=== PATIENT | male | born 1940 | race Caucasian/White ===

== ENCOUNTER → 2019-11-09 11:35 | Outpatient (BNVA) | payer MEDICARE, OTHER, SELFPAY | PROVIDERS: Family Provider Family Medicine; PCP Family Medicine; Visit Provider Nurse Practitioner Family | DX: R30.0 Dysuria (principal); K57.92 Diverticulitis of intestine, part unspecified, without perforation or abscess without bleeding | CPT/HCPCS: 80053; 81000; 85025 ==

== ENCOUNTER → 2020-01-14 09:37 | Outpatient (BNVA) | payer MEDICARE, OTHER, SELFPAY | PROVIDERS: PCP Family Medicine; Visit Provider Orthopaedic Surgery | DX: Z01.812 Encounter for preprocedural laboratory examination (principal); Z20.828 Contact with and (suspected) exposure to other viral communicable diseases | CPT/HCPCS: 87635 ==

== ENCOUNTER 2020-01-20 05:48 | Day surgery (SDC) | payer MEDICARE, OTHER, SELFPAY ==
[2020-01-19 17:37] VITALS: BMI 31.3
[2020-01-20 05:57] VITALS: BP 156/63; PULSE 61; RESP 18; TEMP 37; O2SAT 96
[2020-01-20] MEDS: sodium chloride 0.9% 1,000 ML 30 ML IV (06:23)
--- NOTE | 2020-01-20 06:45 | ANES.PREANE2 ---
Pre-Anesthetic Assessment Pre-Anesthetic Assessment: Height/Weight: Height 1.7 m Weight 90.718 kg Temp Pulse Resp BP Pulse Ox 98.6 F 61 18 156/63 96 01/20/20 05:57 01/20/20 05:57 01/20/20 05:57 01/20/20 05:57 01/20/20 05:57 Preop Diagnosis: Left carpal tunnel syndrome, left ring finger trigger finger, mass left forearm Proposed Procedure: Operation Date: 01/20/20 07:00 Proposed Procedures p left carpal tunnel release, left ring finger trigger digit release, left wrist mass removal/ 63521, 60805, 78696 left carpal tunnel release, left ring trigger finger, mass upper extremity/ G56.02, R22.32, M65.342(Left) - Dk Meza MD s Trigger Finger Release(Left) - Dk Meza MD s Excision Mass/Lesion wrist(Left) - Dk Meza MD Familial anesthetic complications: None Was Beta Dante taken within 24 hours: Yes Last intake: Intake NPO > 8 hrs Last Liquid Date 01/19/20 Last Solid Date 01/19/20 Social: Social History: No alcohol and No tobacco Exam: Pre-Anes Outpt Exam: alert, oriented x 3, clear to auscultation bilaterally and regular rate & rhythm Airway: Cervical ROM: WNL MP: 3 Dentition: Full CV/HEM: CV/HEM: HTN Metabolic: Metabolic: Hyperlipidemia Anesthetic Plan: ASA status: 2 Anesthesia: MAC and Regional (specify below) Other: [place] block Risk of > 500 ml blood loss (7ml/kg in children): No Meds/Allergies Current Medications: Current Medications Generic Name Dose Route Start Last Admin Trade Name Freq PRN Reason Stop Dose Admin Sodium Chloride 1,000 mls @ 30 ml s/hr 01/20/20 06:00 01/20/20 06:23 Sodium Chloride 0.9% IV 01/21/20 05:59 30 mls/hr .Q24H GAY Administration PFSH Anesthesia PFSH: Medical History GERD (gastroesophageal reflux disease) Hx of diverticulitis of colon Hypercholesteremia Hypertension Social History Smoking and tobacco status: never smoked Alcohol intake: never Adopted: No Household members: spouse Housing: House Marital status: Number of children: 3 Highest education level completed: High School Graduate Current occupational status: retired Pets and animals: Yes Current gender identity: Male Data Anesthesia Cardiac Studies: No Data to Display
--- NOTE | 2020-01-20 06:46 | W.PM.OPSUD ---
Surgery/Procedure H&P Update DATE OF PROCEDURE: January 20, 2020 DATE H&P PERFORMED: 12/21/19 PREOP DIAGNOSIS: Left carpal tunnel syndrome, left ring finger trigger finger, mass left forearm PLANNED PROCEDURE: Operation Date: 01/20/20 07:00 Proposed Procedures p left carpal tunnel release, left ring finger trigger digit release, left wrist mass removal/ 02060, 76909, 71030 left carpal tunnel release, left ring trigger finger, mass upper extremity/ G56.02, R22.32, M65.342(Left) - Dk Meza MD s Trigger Finger Release(Left) - Dk Meza MD s Excision Mass/Lesion wrist(Left) - Dk Meza MD
--- NOTE | 2020-01-20 07:52 | PM.OP ---
Operative Report Date of procedure: January 20, 2020 Pre-op Diagnosis: Left carpal tunnel syndrome, left ring finger trigger finger, mass left forearm Post-op diagnosis: same Post-op Diagnosis: Lipoma left forearm Post-op Findings: As above Procedure Done: Left carpal tunnel release, left ring finger trigger finger release, excision lipoma left forearm Specimens removed/disposition: Lipoma left forearm Pathology: none sent Surgeon: Dk Meza Anesthesia: Nerve Block (Jordan block) Estimated blood loss (mL): 10 Tourniquet time (min): 26 Complications: None Findings: No mass occupying lesions or abnormalities were seen within the carpal tunnel. No abnormalities were seen at the with the flexor tendons at the A1 rosita level of the ring finger. The patient had approximately 2 cm diameter lipoma over the volar wrist overlying the fascia in the left forearm Condition: stable Disposition: PACU Procedure: Patient was taken to the operating room and a block anesthesia provided by the anesthesia service. She was prepped and draped with the arm exposed. A timeout was performed. A 3 cm long incision was made in line with the fourth ray from the distal edge of the carpal tunnel extending proximally. The subcutaneous fat and palmar fascia was divided with a scalpel blade. Under loupe magnification the ulnar neurovascular bundle was identified distally. A hemostat could be passed under the transverse carpal ligament allowing the distal 25% to be divided. A slotted guide was then passed beneath the transverse carpal ligament and the middle 50% divided. Blunt scissors were then passed over the guide freeing the proximal ligament. The tourniquet was deflated. Hemostasis provided with electrocautery. Wound edges were infiltrated with 10 cc of a half percent Marcaine solution. A transverse incision was made over the level of a 1 rosita in the palm over a distance of approximately a centimeter and a half. Under loupe magnification blunt dissection was accomplished down to the A1 rosita. With adequate visualization a scalpel was used to divide the central 8 mm of that structure. Blunt scissors were then used to extend the release approximately 5 mm proximally and 5 mm distally. Tendons were pulled the road and inspected to assure there health. Skin edges were infiltrated with 4 cc of 0.5%n Marcaine. A transverse incision was then made over the mass of the volar forearm approximately 2 cm in length. Dissection carried down bluntly with a hemostat mobilizing superficial vessels radially and ulnarly. That lipoma then delivered itself through the incision. Utilizing a hemostat and intermittently blunt scissors the lipoma was excised and mass. As there is no atypical qualities and the lipoma was small in size it was not sent for pathology. Wound edges were infiltrated with 6 cc of 0.5% Marcaine. Tourniquet was deflated All skin edges were closed with interrupted 3-0 Prolene. Xeroflo gauze 4 x 4's, web roll and a 2 inch Monster wrap were applied from forearm to hand. The patient was taken to recovery room in stable condition The skin edges were closed with 3-0 Prolene compressive dressings were applied. Skin edges were reapproximated with 3-0 Prolene. Sterile dressings were applied. The patient was taken to the recovery room in stable condition
[2020-01-20 07:55] VITALS: BP 130/68; PULSE 54; RESP 16; TEMP 36.4; O2SAT 96
[2020-01-20 08:35] VITALS: BP 147/64; PULSE 51; RESP 17; O2SAT 98
--- NOTE | 2020-01-20 14:19 | ANE.PACU2 ---
Inpatient post-anesthesia follow up: Airway intact: Yes Vital signs: Temperature 97.6 F Pulse Rate 51 Respiratory Rate 17 Blood Pressure 147/64 Pulse Oximetry 98 Oxygen Delivery Me thod Room Air Oxygen Flow Rate Fraction of Inspir ed Oxygen Hydration adequate: Yes Nausea and vomiting: No Pain level: 2 Mental status: Baseline
== END 2020-01-20 08:46 | disposition home or self-care (01) ==
PROVIDERS: PCP Family Medicine; Visit Provider Orthopaedic Surgery
PROC: (CPT 64721; principal; 2020-01-20 07:00)
PROC: (CPT 26055; 2020-01-20 07:00)
PROC: (CPT 11402; 2020-01-20 07:00)
DX: G56.02 Carpal tunnel syndrome, left upper limb (principal); M65.342 Trigger finger, left ring finger; D17.22 Benign lipomatous neoplasm of skin and subcutaneous tissue of left arm; I10 Essential (primary) hypertension; E78.5 Hyperlipidemia, unspecified; K21.9 Gastro-esophageal reflux disease without esophagitis; E78.00 Pure hypercholesterolemia, unspecified
CPT/HCPCS: 11402; 12031; 26055; 64721; 12345; 96372; J0690; J2704; J3490; J7030

== ENCOUNTER → 2020-03-03 09:38 | Outpatient (BNVA) | payer MEDICARE, OTHER, SELFPAY | PROVIDERS: PCP Family Medicine; Visit Provider Orthopaedic Surgery | DX: Z11.59 Encounter for screening for other viral diseases (principal) | CPT/HCPCS: 87635 ==

== ENCOUNTER 2020-03-09 05:43 | Day surgery (SDC) | payer MEDICARE, OTHER, SELFPAY ==
[2020-03-08 17:46] VITALS: BMI 31.3
[2020-03-09 06:01] VITALS: BP 148/67; PULSE 59; RESP 18; TEMP 36.4; O2SAT 96
[2020-03-09] MEDS: lidocaine 1% INJ 20 mL INTRADERMA (06:34)
[2020-03-09] MEDS: sodium chloride 0.9% 1,000 ML 30 ML IV (06:34)
--- NOTE | 2020-03-09 06:36 | ANES.PREANE2 ---
Pre-Anesthetic Assessment Pre-Anesthetic Assessment: Height/Weight: Height 1.7 m Weight 90.718 kg Temp Pulse Resp BP Pulse Ox 97.5 F L 59 L 18 148/67 96 03/09/20 06:01 03/09/20 06:01 03/09/20 06:01 03/09/20 06:01 03/09/20 06:01 Preop Diagnosis: Carpal tunnel syndrome right Proposed Procedure: Operation Date: 03/09/20 07:00 Proposed Procedures p right Carpal Tunnel Release 54497 g56.01(Right) - Dk Meza MD Familial anesthetic complications: None Was Beta Dante taken within 24 hours: Yes Last intake: Intake NPO > 8hrs Last Liquid Date 03/08/20 Last Liquid Time 21:00 Last Solid Date 03/08/20 Last Solid Time 18:00 Social: Social History: No alcohol and No tobacco Exam: Pre-Anes Outpt Exam: alert, oriented x 3, clear to auscultation bilaterally and regular rate & rhythm Airway: Cervical ROM: WNL MP: 3 Dentition: Full CV/HEM: CV/HEM: HTN GI: GI: GERD Metabolic: Metabolic: Hyperlipidemia Musc/skel: Musc/skel: OA/DJD Anesthetic Plan: ASA status: 2 Anesthesia: MAC and Regional (specify below) ([place] block) Risk of > 500 ml blood loss (7ml/kg in children): No Meds/Allergies Current Medications: Current Medications Generic Name Dose Route Start Last Admin Trade Name Freq PRN Reason Stop Dose Admin Sodium Chloride 1,000 mls @ 30 ml s/hr 03/09/20 06:00 03/09/20 06:34 Sodium Chloride 0.9% IV 03/10/20 05:59 30 mls/hr .Q24H GAY Administration Lidocaine HCl 0.1 ml 03/09/20 05:55 03/09/20 06:34 Lidocaine 1% Inj 20 Ml INTRADERMA 03/10/20 05:54 0.02 ml PRN PRN Administration anesthetic prior to IV start PFSH Anesthesia PFSH: Medical History GERD (gastroesophageal reflux disease) Hx of diverticulitis of colon Hypercholesteremia Hypertension Social History Smoking and tobacco status: never smoked Alcohol intake: never Adopted: No Household members: spouse Housing: House Marital status: Number of children: 3 Highest education level completed: High School Graduate Current occupational status: retired Pets and animals: Yes Current gender identity: Male Data Anesthesia Cardiac Studies: No Data to Display
--- NOTE | 2020-03-09 06:37 | W.PM.OPSUD ---
Surgery/Procedure H&P Update DATE OF PROCEDURE: March 09, 2020 DATE H&P PERFORMED: 03/01/20 PREOP DIAGNOSIS: Carpal tunnel syndrome right PLANNED PROCEDURE: Operation Date: 03/09/20 07:00 Proposed Procedures p right Carpal Tunnel Release 42291 g56.01(Right) - Dk Meza MD
[2020-03-09 07:41] VITALS: BP 126/61; PULSE 57; RESP 16; TEMP 36.3; O2SAT 95
--- NOTE | 2020-03-09 07:59 | P.OP_ITS ---
Operative Report Date of procedure: March 09, 2020 Pre-op Diagnosis: Carpal tunnel syndrome right Post-op diagnosis: same Procedure Done: Right carpal tunnel release Pathology: none sent Surgeon: Dk Meza Anesthesia: Nerve Block (Jordan block) Estimated blood loss (mL): 2 Tourniquet time (min): 20 Findings: No masses or space-occupying lesions were seen within the carpal tunnel Procedure: Patient was taken to the operating room and anesthesia provided by the anesthesia service. She was prepped and draped with the arm exposed. A timeout was performed. A 3 cm long incision was made in line with the fourth ray from the distal edge of the carpal tunnel extending proximally. The subcutaneous fat and palmar fascia was divided with a scalpel blade. Under loupe magnification the ulnar neurovascular bundle was identified distally. A hemostat could be passed under the transverse carpal ligament allowing the distal 25% to be divided. A slotted guide was then passed beneath the transverse carpal ligament and the middle 50% divided. Blunt scissors were then passed over the guide freeing the proximal ligament. The tourniquet was deflated. Hemostasis provided with electrocautery. Wound edges were infiltra florencio with 10 cc of a half percent Marcaine solution. Skin edges were reapproximated with 3-0 Prolene. Sterile dressings were applied. The patient was taken to the recovery room in stable condition
--- NOTE | 2020-03-09 14:43 | ANE.PACU2 ---
Inpatient post-anesthesia follow up: Airway intact: Yes Vital signs: Temperature 97.3 F Pulse Rate 57 Respiratory Rate 16 Blood Pressure 126/61 Pulse Oximetry 95 Oxygen Delivery Me thod Room Air Oxygen Flow Rate Fraction of Inspir ed Oxygen Hydration adequate: Yes Nausea and vomiting: No Pain level: 1 Mental status: Baseline
== END 2020-03-09 08:25 | disposition home or self-care (01) ==
PROVIDERS: PCP Family Medicine; Visit Provider Orthopaedic Surgery
PROC: (CPT 64721; principal; 2020-03-09 07:00)
DX: G56.01 Carpal tunnel syndrome, right upper limb (principal); I10 Essential (primary) hypertension; K21.9 Gastro-esophageal reflux disease without esophagitis; E78.5 Hyperlipidemia, unspecified; M19.90 Unspecified osteoarthritis, unspecified site; Z79.82 Long term (current) use of aspirin
CPT/HCPCS: 64721; 12345; J0690; J2704; J3010; J3490; J7030

== ENCOUNTER → 2020-04-18 09:08 | Outpatient (BNVA) | payer MEDICARE, OTHER, SELFPAY | PROVIDERS: PCP Family Medicine; Visit Provider Urology | DX: R31.0 Gross hematuria (principal); N40.1 Benign prostatic hyperplasia with lower urinary tract symptoms | CPT/HCPCS: 81003 ==

== ENCOUNTER 2020-05-04 07:57 | Outpatient (CLI) | payer MEDICARE, OTHER, SELFPAY ==
--- NOTE | 2020-05-04 08:00 | CT_ITS ---
WS: [id number] CT ABDOMEN PELVIS TECHNIQUE: Noncontrast CT of the abdomen and contrast-enhanced CT of the abdomen and pelvis with ismael nal and sagittal reformatted images. CLINICAL INFORMATION: GROSS HEMATURIA COMPARISON: CT 11 DLP: 3128.[address] scans at [facility] use at least one of these dose optimization techniques: automat ed exposure control; mA and/or kV adjustment per patient size (includes targeted exams where dose is matched to clinical indication); or iterative reconstruction. FINDINGS: Mild bilateral renal cortical atrophy. No obstructing renal or ureteral calculi. Normal bilateral roseline al parenchymal enhancement. No hydronephrosis. Normal ureteral excretion on the delayed images. Yamini l bladder. Mild prostate enlargement measuring 3.3 CM. Normal hepatic parenchyma. Normal portal vein and splenic vein. Mild pancreatic atrophy. Small esopha geal hiatal hernia. Normal spleen. Lung bases are well aerated. Normal caliber abdominal aorta. Mild aortic calcification. Mild diffuse thickening of the sigmoid colon with diverticulosis. No significant inflammatory strandi ng. No evidence of acute diverticulitis. No evidence of high-grade small or large bowel obstruction. No free fluid in the pelvis. Disc space narrowing worse L5-S1. CT/CT abdomen pelvis wo/w 11164 IMPRESSION: 1. No obstructing renal or ureteral calculi. 2. Mild bilateral renal cortical atrophy. Normal parenchymal enhancement. 3. Normal excretion on the delayed images. Normal filling of the bladder. 4. Mild prominence of the prostate measuring 3.3 CM. 5. Sigmoid diverticulosis. No evidence of acute diverticulitis.
[2020-05-04 09:35] LABS: Blood Urea Nitrogen 17 mg/dL (8-23)
[2020-05-04] MEDS: iohexol 300 mg/mL 100 mL Btl IV (09:44)
== END 2020-05-04 07:58 | disposition home or self-care (01) ==
LOC: CT 08:01 → RAD 08:01
PROVIDERS: PCP Family Medicine; Visit Provider Urology
DX: R31.0 Gross hematuria (principal); K57.30 Diverticulosis of large intestine without perforation or abscess without bleeding; N40.0 Benign prostatic hyperplasia without lower urinary tract symptoms; N26.1 Atrophy of kidney (terminal)
CPT/HCPCS: 74178; 81003; 82565; 84520

== ENCOUNTER 2020-08-14 09:33 | Emergency (ER) | payer MEDICARE, OTHER, SELFPAY ==
[2020-08-14] VITALS (53 sets, daily range): BP systolic 107–146; BP diastolic 49–84; PULSE 57–61; RESP 18; TEMP 37.1; O2SAT 90–97; BMI 31.3
--- NOTE | 2020-08-14 10:08 | CT_ITS ---
WS: [id number] CT ABDOMEN PELVIS TECHNIQUE: Contrast-enhanced CT of the abdomen and pelvis with coronal and sagittal reformatted image s. CLINICAL INFORMATION: abd pain COMPARISON: May 04, 2020 DLP: 1754.[address] scans at [facility] use at least one of these dose optimization techniques: automat ed exposure control; mA and/or kV adjustment per patient size (includes targeted exams where dose is matched to clinical indication); or iterative reconstruction. FINDINGS: Diffuse fatty infiltration of the liver. Normal portal vein and splenic vein. Gallbladder is contract ed. Fatty atrophy of the pancreas. Normal GE junction. Lung bases are well aerated. Adrenal glands ar e normal. Normal renal parenchymal enhancement. No hydronephrosis. Sigmoid diverticulosis. No evidence of acute diverticulitis. No evidence of small or large bowel obst ruction. Tiny fat-containing umbilical hernia. Slightly prominent prostate measuring 3.4 cm. Mild dif fuse bladder wall thickening can be seen with bladder outlet obstruction. Normal caliber abdominal ao rta. No abdominal or pelvic lymphadenopathy. CT/CT abdomen pelvis w con* [id number] IMPRESSION: 1. Diffuse fatty infiltration of the liver. 2. Gallbladder is contracted unchanged from previous. 3. Normal caliber abdominal aorta. 4. Sigmoid diverticulosis. No evidence of acute diverticulitis. 5. Slightly prominent prostate measuring 3.4 CM. Mild bladder wall thickening can be seen with bladder outlet obstruction. This is unchanged from previous. 6. No other significant findings.
--- NOTE | 2020-08-14 10:39 | ED_ITS ---
HPI - Abdominal Pain General: Chief Complaint: Abdominal Pain Stated Complaint: abd pain, lower back pain (all over) Time Seen by Provider: 08/14/20 10:04 History of Present Illness: HPI narrative: 89-year-old male presents emergency room complaining of abdominal pain. Patient was seen last week in the outpatient clinic and advised to return if he had further problems. He feels like his symptoms are worsening. He has a history of diverticulitis. He has noted that it improves with voiding. He denies any medic easy melena hematemesis coffee-ground emesis no hematuria. He does have a little bit of dysuria. Denies any flank pain. MD elicited complaint: abdominal pain Pertinent past history: diverticulitis Onset (ago): day(s) Pain Consistency: constant Location: Periumbilical and LLQ Quality: cramping Radiation: none Migration to: LLQ Exacerbating factors: movement Relieving factors: other (Micturition) Associated Symptoms: Reports bloating, GI cramping, dysuria, nausea and poor appetite; Denies anorexia, belching, change in bowel habits, change in stool character, chills, coffee ground emesis, constipation, diarrhea, dyspepsia, excessive flatus, fever(s), heartburn, hematochezia, hematuria, hematemesis, fecal incontinence, loose stools, melena, syncope and vomiting Review of Systems Const: Denies: fever(s) or chills ENMT: Denies: throat pain, ear or mastoid pain, nasal discharge or nasal congestion Card: Denies: syncope Resp: Denies: dyspnea, productive cough or non-productive cough GI: Reports: nausea, bloating and GI cramping; Denies: vomiting, hematemesis, coffee ground emesis, heartburn, diarrhea, constipation, belching, excessive flatus, fecal incontinence, change in bowel habits, change in stool character, hematochezia or melena : Reports: dysuria; Denies: hematuria Skin/Breast: Denies: rash or pruritus PFSH ED PFSH: Medical History 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 GERD (gastroesophageal reflux disease) Gross hematuria Hx of diverticulitis of colon Hypercholesteremia Hypertension Surgical History H/O colonoscopy H/O right inguinal hernia repair Family History Father CAD (coronary artery disease) Mother CAD (coronary artery disease) Social History Smoking and tobacco status: never smoked Alcohol intake: never Adopted: No Household members: spouse Housing: House Marital status: Number of children: 3 Highest education level completed: High School Graduate Current occupational status: retired Pets and animals: Yes Current gender identity: Male Physical Exam Const: COMMON NORMALS: no acute distress GENERAL APPEARANCE: cooperative and comfortable ORIENTATION/CONSCIOUSNESS: Yes awake, Yes oriented to person, Yes oriented to place and Yes oriented to time HENMT: COMMON NORMALS: normocephalic, atraumatic, hearing grossly normal bilaterally and external ears normal HEAD & SCALP: normocephalic and atraumatic EXTERNAL EAR: Yes external ears normal Neck/C-Spine: COMMON NORMALS: no JVD Resp: COMMON NORMALS: normal respiratory effort, No retractions, No use of accessory muscles and clear to auscultation bilaterally AUSCULTATION: clear to auscultation bilaterally Cardio: COMMON NORMALS: no JVD, regular rate, regular rhythm and No murmurs present (Cardio) RATE: regular rate RHYTHM: regular rhythm GI: COMMON NORMALS: Soft to palpation and No hepatosplenomegaly present AUSCULTATION: Yes normoactive bowel sounds PALPATION: Yes Soft to palpation, Yes Tenderness to palpation present (GI) Details: LLQ (Mild), No Guarding due to palpation present (GI) and Yes No hepatosplenomegaly present Extremity: COMMON NORMALS: normal to inspection, capillary refill normal, no clubbing, cyanosis or edema, no calf tenderness and no pedal edema Neuro: SENSORIUM/ORIENTATION: Yes oriented to person, Yes oriented to place and Yes oriented to time Skin: COMMON NORMALS: no rashes or lesions noted GENERAL SKIN EXAM: no rashes or lesions noted Course Vital Signs: Vital signs: Vital Signs Temperature 98.8 F 08/14/20 09:42 Pulse Rate 57 L 08/14/20 14:38 Respiratory Rate 18 08/14/20 14:38 Blood Pressure 146/84 08/14/20 14:38 Pulse Oximetry 95 08/14/20 14:38 MDM - Abdominal Pain MDM Narrative: Medical decision making narrative: CT was unremarkable actually did not even show diverticulitis. We did ask him to complete the course of antibiotics at this point. Return if has further problems otherwise follow-up with his primary care doctor within the week. Lab Data: Labs: Lab Results 08/14/20 08/14/20 08/14/20 Range/Units 10:25 10:25 10:40 WBC 7.6 (4.0-10.0) 10^3/ uL RBC 4.66 (4.1-5.3) 10^6/u L Hgb 13.9 (11.7-16.6) g/dL Hct 41.1 L (42.0-52.0) % MCV 88.2 (80-94) fL MCH 29.8 (28.0-34.0) pg MCHC 33.8 (30.0-36.0) g/dL RDW 12.7 (12.1-15.1) % Plt Count 205 (130-400) 10^3/c mm MPV 10.1 (7.4-10.4) fL Neut % (Auto) 69.3 % Lymph % (Auto) 15.9 % [place] % (Auto) 9.2 % Eos % (Auto) 4.2 % Baso % (Auto) 1.1 % Neut # (Auto) 5.28 (1.8-7.7) 10^3/u L Lymph # (Auto) 1.2 (0.8-4.8) 10^3/u L [place] # (Auto) 0.7 (0.2-0.9) 10^3/u L Eos # (Auto) 0.3 (0.0-0.8) 10^3/u L Baso # (Auto) 0.1 (0.0-0.1) 10^3/u L Nucleated RBC % (a uto) 0 % Nucleated RBCs # 0.0 /100WBC Sodium 134 L (136-145) mmol/L Potassium 3.9 (3.5-5.1) mmol/L Chloride 98 (98-107) mmol/L Carbon Dioxide 28 (22-29) mmol/L Anion Gap 11.9 (5-19) BUN 14 (8-23) mg/dL Creatinine 0.9 (0.7-1.2) mg/dL GFR Calculation Not Reportable Glucose 140 H (65-115) mg/dL Calculated Osmolal ity 281 L (285-295) mOsm/k g Calcium 9.1 (8.5-10.5) mg/dL Total Bilirubin 0.5 (0.15-1.2) mg/dL AST 19 (0-40) U/L ALT 16 (0-41) U/L Alkaline Phosphata se 80 (40-130) IU/L Total Protein 7.1 (6.6-8.7) g/dL Albumin 4.0 (3.5-5.2) g/dL Globulin 3.1 (1.3-4.6) g/dL Urine Color Yellow (Yellow) Urine Appearance Clear (CLEAR) Urine pH 5 (5-7) Ur Specific Gravit y 1.010 (1.005-1.030) Urine Protein Neg (Negative) Urine Glucose (UA) Norm (Normal) Urine Ketones Negative (Negative) Urine Blood Neg (Negative) Urine Nitrate Negative (Negative) Urine Bilirubin Neg (Negative) Urine Urobilinogen Norm (Negative) mg/dL Ur Leukocyte Lurdes ase Negative (Negative) Discharge Plan Discharge Patient Disposition: Home Clinical Impression: Abdominal pain, Diverticulitis Condition: Stable Prescriptions: Changed omeprazole 20 mg capsule,delayed release(DR/EC) 20 mg PO BID Qty: 0 RF: 0 tamsulosin 0.4 mg capsule 0.8 mg PO DAILY Qty: 90 RF: 3 No Action citalopram [Celexa] 20 mg tablet 20 mg PO DAILY RF: 0 metoprolol tartrate 100 mg tablet 100 mg PO BID RF: 0 lisinopril-hydrochlorothiazide 20-25 mg tablet 1 tab PO DAILY RF: 0 glucosamine-chondroitin 900 mg tablet 900 mg PO DAILY RF: 0 latanoprost 0.005 % drops 1 drp ophthalmic (eye) DAILY RF: 0 simvastatin 20 mg Tablet 20 mg PO BEDTIME RF: 0 Combigan 0.2-0.5 % Drops 1 drp OPHTHALMIC (EYE) BID RF: 0 metronidazole 500 mg tablet 500 mg PO BID RF: 0 ciprofloxacin HCl 500 mg tablet 500 mg PO BID RF: 0 Aspir-81 81 mg Tablet,Delayed Release (Dr/Ec) 81 mg PO DAILY RF: 0 PreserVision AREDS-2 250-90-40-1 mg Capsule 1 tab PO BID RF: 0 Discharge Orders: Discharge ED (Routine); Ordered 08/14/20 Ordered By: Oscar Manrique Referrals: Adi Walters MD [Primary Care Provider] - Discharge Diet: Clear Liquid Discharge Activity: Resume usual activity Patient Instructions: Opioid Safety Activity Restrictions/Additional Instructions: Avoid use of [id number] anti-inflammatories. Continue previously prescribed antibiotics. Coding Level of Care Code ED Counsel[employer] for Niyag Fwd Exam Comprehensive
[2020-08-14 10:44] LABS: Basophils # 0.1 10^3/uL (0.0-0.1); Basophils % 1.1 %; Eosinophils # 0.3 10^3/uL (0.0-0.8); Eosinophils % 4.2 %; Hematocrit 41.1 % (42.0-52.0); Hemoglobin 13.9 g/dL (11.7-16.6); Lymphocytes # 1.2 10^3/uL (0.8-4.8); Lymphocytes % 15.9 %; Mean Corpuscular HGB Conc 33.8 g/dL (30.0-36.0); Mean Corpuscular Hemoglobin 29.8 pg (28.0-34.0); Mean Corpuscular Volume 88.2 fL (80-94); Mean Platelet Volume 10.1 fL (7.4-10.4); Monocytes # 0.7 10^3/uL (0.2-0.9); Monocytes % 9.2 %; Neutrophils # 5.28 10^3/uL (1.8-7.7); Neutrophils % 69.3 %; Nucleated Red Blood Cells % 0 %; Platelet Count 205 10^3/cmm (130-400); Red Blood Count 4.66 10^6/uL (4.1-5.3); Red Cell Distribution Width 12.7 % (12.1-15.1); White Blood Count 7.6 10^3/uL (4.0-10.0)
[2020-08-14 10:52] LABS: Add Urine Microscopic? NO; Charge for UA Resulting for Rev
[2020-08-14 10:54] LABS: Bilirubin Urine Neg (Negative); Blood Urine Neg (Negative); Glucose Urine UA Norm (Normal); Ketones Urine Negative (Negative); Leukocyte Esterase Urine Negative (Negative); Nitrate Urine Negative (Negative); Protein Urine Neg (Negative); Urine Appearance Clear (CLEAR); Urine Color Yellow (Yellow); Urobilinogen Urine Norm (Negative); pH Urine 5 (5-7)
[2020-08-14] MEDS: ondansetron 2 mg/ML SDV 2 mL 4 MG IVP (11:00)
[2020-08-14 11:08] LABS: Alanine Aminotransferase 16 U/L (0-41); Alkaline Phosphatase 80 IU/L (40-130); Anion Gap 11.9 (5-19); Aspartate Amino Transferase 19 U/L (0-40); Blood Urea Nitrogen 14 mg/dL (8-23); Calcium 9.1 mg/dL (8.5-10.5); Carbon Dioxide 28 mmol/L (22-29); Chloride 98 mmol/L (98-107); Globulin 3.1 g/dL (1.3-4.6); Glucose 140 mg/dL (65-115); Osmolality Calculated 281 mOsm/kg (285-295); Potassium 3.9 mmol/L (3.5-5.1); Sodium 134 mmol/L (136-145); Total Bilirubin 0.5 mg/dL (0.15-1.2); Total Protein 7.1 g/dL (6.6-8.7)
[2020-08-14] MEDS: iohexol 300 mg/mL 100 mL Btl IV (12:50)
== END 2020-08-14 14:41 | disposition home or self-care (01) ==
PROVIDERS: Emergency Provider Family Medicine; PCP Family Medicine
DX: K57.92 Diverticulitis of intestine, part unspecified, without perforation or abscess without bleeding (principal); Z79.82 Long term (current) use of aspirin; I10 Essential (primary) hypertension
CPT/HCPCS: 36415; 74177; 80053; 81003; 85025; 87040; 96374; 99284; J2405; Q9967

== ENCOUNTER 2020-08-15 08:30 | Emergency (ER) | payer MEDICARE, OTHER, SELFPAY ==
[2020-08-15] VITALS (10 sets, daily range): BP systolic 100–205; BP diastolic 50–83; PULSE 56–69; RESP 13–24; TEMP 36.9; O2SAT 92–97; BMI 31.3
--- NOTE | 2020-08-15 08:32 | ECG_ITS ---
[facility] Test Date: 2020-08-15 Pat Name: Joe Nowak Department: Room: Gender: Male [employer]: : 1940 Requested By: Oscar Gaytan Order Number: [id number] Artemio MD: Zurdo Marcelo M.D. Measurements Intervals [place] Rate: 57 P: 12 ID: [id number] QRS: 19 QRSD: 76 T: 43 QT: 439 QTc: 429 Interpretive Statements SINUS BRADYCARDIA No previous ECG available for comparison Electronically Signed On 08-16-2020 0:18:35 CDT by Zurdo Marcelo M.D. [email or web address]
--- NOTE | 2020-08-15 08:33 | ED_ITS ---
HPI - Abdominal Pain General: Chief Complaint: Abdominal Pain Stated Complaint: Abdominal pain, lower back pain Time Seen by Provider: 08/15/20 08:30 History of Present Illness: HPI narrative: 79-year-old male presents emergency room with abdominal pain. He was here yesterday CT was done was unremarkable. Patient complaining worsening right lower quadrant abdominal pain. He was treated as an outpatient oral antibiotics for suspected diverticulitis last ni ght. Still having loose stools and abdominal discomfort that is worsening. MD elicited complaint: abdominal pain Onset (ago): day(s) Pain Consistency: constant Location: LLQ Severity: moderate Quality: cramping Radiation: none Exacerbating factors: nothing Associated Symptoms: Reports bloating, change in bowel habits, change in stool character, GI cramping and poor appetite; Denies anorexia, belching, chills, coffee ground emesis, constipation, diarrhea, dyspepsia, dysuria, excessive flatus, fever(s), heartburn, hematochezia, hematuria, hematemesis, fecal incontinence, loose stools, melena, nausea, syncope and vomiting Review of Systems Const: Denies: fever(s) or chills ENMT: Denies: throat pain, ear or mastoid pain, nasal discharge or nasal congestion Card: Denies: syncope Resp: Denies: dyspnea, productive cough or non-productive cough GI: Reports: bloating, GI cramping, change in bowel habits and change in stool character; Denies: nausea, vomiting, hematemesis, coffee ground emesis, heartburn, diarrhea, constipation, belching, excessive flatus, fecal incontinence, hematochezia or melena : Denies: dysuria or hematuria Skin/Breast: Denies: rash or pruritus PFSH ED PFSH: Medical History 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 GERD (gastroesophageal reflux disease) Gross hematuria Hx of diverticulitis of colon Hypercholesteremia Hypertension Surgical History H/O colonoscopy H/O right inguinal hernia repair Family History Father CAD (coronary artery disease) Mother CAD (coronary artery disease) Social History Smoking and tobacco status: never smoked Alcohol intake: never Adopted: No Household members: spouse Housing: House Marital status: Number of children: 3 Highest education level completed: High School Graduate Current occupational status: retired Pets and animals: Yes Current gender identity: Male Physical Exam Const: COMMON NORMALS: no acute distress GENERAL APPEARANCE: cooperative and comfortable ORIENTATION/CONSCIOUSNESS: Yes awake, Yes oriented to person, Yes oriented to place and Yes oriented to time HENMT: COMMON NORMALS: normocephalic, atraumatic and hearing grossly normal bilaterally HEAD & SCALP: normocephalic and atraumatic Neck/C-Spine: COMMON NORMALS: no JVD Resp: COMMON NORMALS: normal respiratory effort, No retractions, No use of accessory muscles and clear to auscultation bilaterally AUSCULTATION: clear to auscultation bilaterally Cardio: COMMON NORMALS: no JVD, regular rate, regular rhythm and No murmurs present (Cardio) RATE: regular rate RHYTHM: regular rhythm GI: AUSCULTATION: Yes normoactive bowel sounds PALPATION: Yes Tenderness to palpation present (GI) Details: LLQ and No Guarding due to palpation present (GI) Extremity: COMMON NORMALS: normal to inspection, capillary refill normal, no clubbing, cyanosis or edema, no calf tenderness and no pedal edema Neuro: SENSORIUM/ORIENTATION: Yes oriented to person, Yes oriented to place and Yes oriented to time Skin: COMMON NORMALS: no rashes or lesions noted GENERAL SKIN EXAM: no rashes or lesions noted Course Vital Signs: Vital signs: Vital Signs Temperature 98.4 F 08/15/20 10:56 Pulse Rate 56 L 08/15/20 12:36 Respiratory Rate 17 08/15/20 12:36 Blood Pressure 125/50 08/15/20 12:36 Pulse Oximetry 97 08/15/20 12:36 MDM - Abdominal Pain MDM Narrative: Medical decision making narrative: Patient has progressively worsening diverticulitis however is still seeing be treated now patient is only on 1 day of oral antibiotics continue those recommend clear liquids next 24 to 48 hours return if has further problems Lab Data: Labs: Lab Results 08/15/20 08/15/20 08/15/20 Range/Units 08:55 09:05 09:05 WBC 10.3 H (4.0-10.0) 10^3/ uL RBC 4.87 (4.1-5.3) 10^6/u L Hgb 14.4 (11.7-16.6) g/dL Hct 42.9 (42.0-52.0) % MCV 88.1 (80-94) fL MCH 29.6 (28.0-34.0) pg MCHC 33.6 (30.0-36.0) g/dL RDW 13.0 (12.1-15.1) % Plt Count 209 (130-400) 10^3/c mm MPV 10.1 (7.4-10.4) fL Neut % (Auto) 75.4 % Lymph % (Auto) 10.5 % [facility] % (Auto) 10.6 % Eos % (Auto) 2.5 % Baso % (Auto) 0.7 % Neut # (Auto) 7.78 H (1.8-7.7) 10^3/u L Lymph # (Auto) 1.1 (0.8-4.8) 10^3/u L [facility] # (Auto) 1.1 H (0.2-0.9) 10^3/u L Eos # (Auto) 0.3 (0.0-0.8) 10^3/u L Baso # (Auto) 0.1 (0.0-0.1) 10^3/u L Nucleated RBC % (a uto) 0 % Nucleated RBCs # 0.0 /100WBC Sodium 132 L (136-145) mmol/L Potassium 4.4 (3.5-5.1) mmol/L Chloride 95 L (98-107) mmol/L Carbon Dioxide 28 (22-29) mmol/L Anion Gap 13.4 (5-19) BUN 16 (8-23) mg/dL Creatinine 1.1 (0.7-1.2) mg/dL GFR Calculation Not Reportable Glucose 96 (65-115) mg/dL Calculated Osmolal ity 275 L (285-295) mOsm/k g Lactic Acid (0.5-2.2) mmol/L Calcium 9.3 (8.5-10.5) mg/dL Total Bilirubin 0.6 (0.15-1.2) mg/dL AST 25 (0-40) U/L ALT 20 (0-41) U/L Alkaline Phosphata se 82 (40-130) IU/L Total Protein 7.2 (6.6-8.7) g/dL Albumin 4.1 (3.5-5.2) g/dL Globulin 3.1 (1.3-4.6) g/dL Urine Color Yellow (Yellow) Urine Appearance Clear (CLEAR) Urine pH 5 (5-7) Ur Specific Gravit y 1.010 (1.005-1.030) Urine Protein Neg (Negative) Urine Glucose (UA) Norm (Normal) Urine Ketones Negative (Negative) Urine Blood Neg (Negative) Urine Nitrate Negative (Negative) Urine Bilirubin Neg (Negative) Urine Urobilinogen Norm (Negative) mg/dL Ur Leukocyte Lurdes ase Negative (Negative) 08/15/20 Range/Units 09:05 WBC (4.0-10.0) 10^3/ uL RBC (4.1-5.3) 10^6/u L Hgb (11.7-16.6) g/dL Hct (42.0-52.0) % MCV (80-94) fL MCH (28.0-34.0) pg MCHC (30.0-36.0) g/dL RDW (12.1-15.1) % Plt Count (130-400) 10^3/c mm MPV (7.4-10.4) fL Neut % (Auto) % Lymph % (Auto) % [facility] % (Auto) % Eos % (Auto) % Baso % (Auto) % Neut # (Auto) (1.8-7.7) 10^3/u L Lymph # (Auto) (0.8-4.8) 10^3/u L [facility] # (Auto) (0.2-0.9) 10^3/u L Eos # (Auto) (0.0-0.8) 10^3/u L Baso # (Auto) (0.0-0.1) 10^3/u L Nucleated RBC % (a uto) % Nucleated RBCs # /100WBC Sodium (136-145) mmol/L Potassium (3.5-5.1) mmol/L Chloride (98-107) mmol/L Carbon Dioxide (22-29) mmol/L Anion Gap (5-19) BUN (8-23) mg/dL Creatinine (0.7-1.2) mg/dL GFR Calculation Glucose (65-115) mg/dL Calculated Osmolal ity (285-295) mOsm/k g Lactic Acid 0.9 (0.5-2.2) mmol/L Calcium (8.5-10.5) mg/dL Total Bilirubin (0.15-1.2) mg/dL AST (0-40) U/L ALT (0-41) U/L Alkaline Phosphata se (40-130) IU/L Total Protein (6.6-8.7) g/dL Albumin (3.5-5.2) g/dL Globulin (1.3-4.6) g/dL Urine Color (Yellow) Urine Appearance (CLEAR) Urine pH (5-7) Ur Specific Gravit y (1.005-1.030) Urine Protein (Negative) Urine Glucose (UA) (Normal) Urine Ketones (Negative) Urine Blood (Negative) Urine Nitrate (Negative) Urine Bilirubin (Negative) Urine Urobilinogen (Negative) mg/dL Ur Leukocyte Lurdes ase (Negative) Discharge Plan Discharge Patient Disposition: Home Clinical Impression: Diverticulitis Condition: Stable Prescriptions: New hydrocodone-acetaminophen 5-325 mg tablet 1 tab PO Q6H PRN (Reason: pain) Qty: 25 RF: 0 No Action citalopram [Celexa] 20 mg tablet 20 mg PO DAILY RF: 0 metoprolol tartrate 100 mg tablet 100 mg PO BID RF: 0 lisinopril-hydrochlorothiazide 20-25 mg tablet 1 tab PO DAILY RF: 0 glucosamine-chondroitin 900 mg tablet 900 mg PO DAILY RF: 0 latanoprost 0.005 % drops 1 drp ophthalmic (eye) DAILY RF: 0 simvastatin 20 mg Tablet 20 mg PO BEDTIME RF: 0 Combigan 0.2-0.5 % Drops 1 drp OPHTHALMIC (EYE) BID RF: 0 metronidazole 500 mg tablet 500 mg PO BID RF: 0 ciprofloxacin HCl 500 mg tablet 500 mg PO BID RF: 0 Aspir-81 81 mg Tablet,Delayed Release (Dr/Ec) 81 mg PO DAILY RF: 0 PreserVision AREDS-2 250-90-40-1 mg Capsule 1 tab PO BID RF: 0 omeprazole 20 mg capsule,delayed release(DR/EC) 20 mg PO BID Qty: 0 RF: 0 tamsulosin 0.4 mg capsule 0.8 mg PO DAILY Qty: 90 RF: 3 Discharge Orders: Discharge ED (Routine); Ordered 08/15/20 Ordered By: Oscar Manrique Referrals: Adi Walters MD [Primary Care Provider] - Discharge Diet: Clear Liquid Discharge Activity: Increase activity as tolerated Patient Instructions: Opioid Safety Activity Restrictions/Additional Instructions: Follow-up with your primary care doctor or the ER if you are not improving. clear liquid diet for 24 hours then advance to bland simple quadrant carbohydrates Coding Level of Care Code ED [employer] for Larissa Zavala
[2020-08-15 09:05] LABS: Add Urine Microscopic? NO; Charge for UA Resulting for Rev
[2020-08-15] MEDS: sodium chloride 0.9% 1,000 ML 999 ML IV (09:12)
[2020-08-15] MEDS: ondansetron 2 mg/ML SDV 2 mL 4 MG IVP (09:15)
[2020-08-15] MEDS: morphine 4 mg/mL SDV 1 mL IVP (09:16)
[2020-08-15 09:17] LABS: Basophils # 0.1 10^3/uL (0.0-0.1); Basophils % 0.7 %; Eosinophils # 0.3 10^3/uL (0.0-0.8); Eosinophils % 2.5 %; Hematocrit 42.9 % (42.0-52.0); Hemoglobin 14.4 g/dL (11.7-16.6); Lymphocytes # 1.1 10^3/uL (0.8-4.8); Lymphocytes % 10.5 %; Mean Corpuscular HGB Conc 33.6 g/dL (30.0-36.0); Mean Corpuscular Hemoglobin 29.6 pg (28.0-34.0); Mean Corpuscular Volume 88.1 fL (80-94); Mean Platelet Volume 10.1 fL (7.4-10.4); Monocytes # 1.1 10^3/uL (0.2-0.9); Monocytes % 10.6 %; Neutrophils # 7.78 10^3/uL (1.8-7.7); Neutrophils % 75.4 %; Nucleated Red Blood Cells % 0 %; Platelet Count 209 10^3/cmm (130-400); Red Blood Count 4.87 10^6/uL (4.1-5.3); White Blood Count 10.3 10^3/uL (4.0-10.0)
[2020-08-15 09:21] LABS: Bilirubin Urine Neg (Negative); Blood Urine Neg (Negative); Glucose Urine UA Norm (Normal); Ketones Urine Negative (Negative); Leukocyte Esterase Urine Negative (Negative); Nitrate Urine Negative (Negative); Protein Urine Neg (Negative); Urine Appearance Clear (CLEAR); Urine Color Yellow (Yellow); Urobilinogen Urine Norm (Negative); pH Urine 5 (5-7)
[2020-08-15 09:30] LABS: Alanine Aminotransferase 20 U/L (0-41); Albumin Level 4.1 g/dL (3.5-5.2); Alkaline Phosphatase 82 IU/L (40-130); Anion Gap 13.4 (5-19); Aspartate Amino Transferase 25 U/L (0-40); Blood Urea Nitrogen 16 mg/dL (8-23); Calcium 9.3 mg/dL (8.5-10.5); Carbon Dioxide 28 mmol/L (22-29); Chloride 95 mmol/L (98-107); Globulin 3.1 g/dL (1.3-4.6); Glucose 96 mg/dL (65-115); Osmolality Calculated 275 mOsm/kg (285-295); Potassium 4.4 mmol/L (3.5-5.1); Sodium 132 mmol/L (136-145); Total Bilirubin 0.6 mg/dL (0.15-1.2); Total Protein 7.2 g/dL (6.6-8.7)
[2020-08-15 09:31] LABS: Lactic Sepsis W/Reflex 0.9 mmol/L (0.5-2.2)
--- NOTE | 2020-08-15 09:31 | CTR_ITS ---
PROCEDURE INFORMATION: Exam: CT Angiography Abdomen With Contrast Exam date and time: 08/15/2020 9:31 AM Age: 79 years old Clinical indication: Abdominal pain; Localized; Lower; Patient HX: Low abd pain, n/v/d x 1 month TECHNIQUE: Imaging protocol: Computed tomographic angiography images of the abdomen with intravenous contrast material. 3D rendering (Not supervised by radiologist): MIP and/or 3D reconstructed images were created by the technologist. Radiation optimization: All CT scans at this facility use at least one of these dose optimization techniques: automated exposure control; mA and/or kV adjustment per patient size (includes targeted exams where dose is matched to clinical indication); or iterative reconstruction. Contrast material: OMNI 350; Contrast volume: 95 ml; Contrast route: INTRAVENOUS (IV); COMPARISON: CT abdomen pelvis w con* [id number] 08/14/2020 12:41 PM RADIATION DOSE METRICS: Total DLP (mGy-cm): 744.68 FINDINGS: Aorta: Mild diffuse atherosclerotic disease is present. There is thick atherosclerotic plaque at the ostium of the SMA, resulting in moderate stenosis. There is thick atherosclerotic plaque at the ostium of the celiac trunk and CHANDLER, resulting in mild stenosis. There is thick atherosclerotic plaque at the ostium of the renal arteries, resulting in [id number] stenosis. No arterial occlusion identified. Celiac trunk and mesenteric arteries: See Aorta finding. Renal arteries: See Aorta finding. Liver: Normal. No mass. Gallbladder and bile ducts: Normal. No calcified stones. No ductal dilation. Pancreas: Normal. No ductal dilation. Spleen: Normal. No splenomegaly. Adrenals: Normal. No mass. Kidneys and ureters: Normal. No hydronephrosis. Stomach and bowel: There is multiple diverticuli in the descending and included proximal sigmoid colon, in association with wall thickening and increased stranding of the pericolic fat, consistent with acute diverticulitis. No evidence of free air or fluid collection to suggest perforation. Lymph nodes: Unremarkable. No enlarged lymph nodes. Intraperitoneal space: See Stomach and bowel finding. Bones/joints: Degenerative changes of the spine seen. Soft tissues: Unremarkable. CT/CT angio abdomen [id number] IMPRESSION: Imaging findings of uncomplicated acute diverticulitis involving the descending and included proximal sigmoid colon. Radiation Dose CTDIVOL = (mGy): DLP = 744.68 (mGy-cm)
[2020-08-15] MEDS: iohexol 350 mg/mL 100 mL Btl IV (09:48)
== END 2020-08-15 12:46 | disposition home or self-care (01) ==
PROVIDERS: Emergency Provider Family Medicine; PCP Family Medicine
DX: K57.92 Diverticulitis of intestine, part unspecified, without perforation or abscess without bleeding (principal); Z79.82 Long term (current) use of aspirin; I10 Essential (primary) hypertension
CPT/HCPCS: 51798; 74175; 80053; 81003; 83605; 85025; 93005; 96361; 96374; 96375; 99284; J2270; J2405; J7030; Q9967

== ENCOUNTER → 2020-11-14 10:56 | Outpatient (BNVA) | payer MEDICARE, OTHER, SELFPAY | PROVIDERS: PCP Family Medicine; Visit Provider Urology | DX: N40.1 Benign prostatic hyperplasia with lower urinary tract symptoms (principal) | CPT/HCPCS: 81003 ==

== ENCOUNTER 2021-05-13 11:48 | Inpatient (IN) | payer MEDICARE, OTHER, SELFPAY ==
[2021-05-13] VITALS (7 sets, daily range): BP systolic 116–147; BP diastolic 59–103; PULSE 58–91; RESP 16–18; TEMP 36.5–37.1; O2SAT 92–96; BMI 31.3
--- NOTE | 2021-05-13 12:25 | CTR_ITS ---
PROCEDURE INFORMATION: Exam: CT Abdomen And Pelvis With Contrast Exam date and time: 05/13/2021 1:19 PM Age: 80 years old Clinical indication: Abdominal pain; Localized; Prior surgery; Surgery date: 6+ months; Surgery type: Hernia; Patient HX: C/O intermittent lower abd pain x 1 week TECHNIQUE: Imaging protocol: Computed tomography of the abdomen and pelvis with contrast. Radiation optimization: All CT scans at this facility use at least one of these dose optimization techniques: automated exposure control; mA and/or kV adjustment per patient size (includes targeted exams where dose is matched to clinical indication); or iterative reconstruction. Contrast material: OMNI 300; Contrast volume: 95 ml; Contrast route: INTRAVENOUS (IV); COMPARISON: CT abdomen pelvis w con* [id number] 08/14/2020 12:41 PM RADIATION DOSE METRICS: Total DLP (mGy-cm): 1680.55 FINDINGS: Liver: Normal. No mass. Gallbladder and bile ducts: Normal. No calcified stones. No ductal dilation. Pancreas: There is edema of the body and tail of the pancreas. No pancreatic calcification or pseudocyst. Spleen: Normal. No splenomegaly. Adrenal glands: Normal. No mass. Kidneys and ureters: Normal. No hydronephrosis. Stomach and bowel: Colonic diverticula are present although there are no CT findings to suggest diverticulitis. No bowel obstruction or wall thickening. Appendix: The appendix is visualized and appears normal. Intraperitoneal space: Unremarkable. No free air. No significant fluid collection. Vasculature: Unremarkable. No abdominal aortic aneurysm. Lymph nodes: Unremarkable. No enlarged lymph nodes. Urinary bladder: Unremarkable as visualized. Reproductive: Unremarkable as visualized. Bones/joints: Unremarkable. No acute fracture. Soft tissues: Unremarkable. CT/CT abdomen pelvis w con* [id number] IMPRESSION: Findings are consistent with acute pancreatitis. Correlation with amylase and lipase are suggested.
--- NOTE | 2021-05-13 12:27 | ED_ITS ---
HPI - Abdominal Pain General: Chief Complaint: Abdominal Pain Stated Complaint: lwr stomach and back pain Time Seen by Provider: 05/13/21 12:00 Source: patient Mode of arrival: ambulatory Limitations: no limitations History of Present Illness: 80-year-old male who states he has had abdominal pain over the last week he seen by his PCP on Friday who thought he may have diverticulitis from physical exam is been taking Cipro Flagyl he is on his last day and states that its had no improvement he states he gets the severe intermittent sharp lower abdominal pains radiate to his back denies any vomiting denies diarrhea he states his pain is minimal and improved currently. 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 GERD (gastroesophageal reflux disease) Gross hematuria Hx of diverticulitis of colon Hypercholesteremia Hypertension Surgical History H/O colonoscopy H/O right inguinal hernia repair Family History Father CAD (coronary artery disease) Mother CAD (coronary artery disease) Social History Smoking and tobacco status: former smoker Alcohol intake: never Adopted: No Household members: spouse Housing: House Marital status: Number of children: 3 Highest education level completed: High School Graduate Current occupational status: retired Pets and animals: Yes Current gender identity: Male Physical Exam Const: COMMON NORMALS: no acute distress, patient oriented x3 and healthy appearing HENMT: COMMON NORMALS: normocephalic and atraumatic HEAD & SCALP: normocephalic and atraumatic Eye: COMMON NORMALS: Equal, round and reactive pupils present and EOMs intact bilaterally PUPIL: Yes Equal, round and reactive pupils present Neck/C-Spine: COMMON NORMALS: full ROM and supple Chest: COMMONS NORMALS: normal inspection of the chest and normal palpation of entire chest wall Resp: COMMON NORMALS: normal respiratory effort, No retractions, No use of accessory muscles and clear to auscultation bilaterally AUSCULTATION: clear to auscultation bilaterally Cardio: COMMON NORMALS: regular rate, regular rhythm and No murmurs present (Cardio) RATE: regular rate RHYTHM: regular rhythm GI: COMMON NORMALS: Normal to inspection, nondistended, normoactive bowel sounds present, Soft to palpation, non-tender and no masses PALPATION: Yes Soft to palpation Extremity: COMMON NORMALS: normal to inspection and full ROM Neuro: COMMON NORMALS: patient oriented x3, moves all extremities and no focal motor deficits Psych: COMMON NORMALS: mental status grossly normal, Normal thought process present and cooperative THOUGHT PROCESS: Normal thought process present Skin: COMMON NORMALS: no rashes or lesions noted and no wounds GENERAL SKIN EXAM: no rashes or lesions noted Course Vital Signs: Vital signs: Vital Signs Temperature 98.3 F 05/13/21 12:52 Pulse Rate 61 05/13/21 12:08 Respiratory Rate 16 05/13/21 12:52 Blood Pressure 147/103 05/13/21 12:52 Pulse Oximetry 96 05/13/21 12:08 MDM - Abdominal Pain Medical Decision Making Patient presents here with abdominal pain patient's blood work here is normal besides hyponatremia. His sodium here is 121 no history of hyponatremia no signs of diverticulitis on CT they did read a possible pancreatitis but he has no upper abdominal pain and his lipase levels normal will admit for observation for his hyponatremia. Lab Data : 05/13/21 12:20 05/13/21 13:40 Labs/Radiology: Radiology Impressions Abdomen/Pelvis CT 05/13/21 12:25 IMPRESSION: Findings are consistent with acute pancreatitis. Correlation with amylase and lipase are suggested. Laboratory Results WBC 9.7 10^3/uL (4.0-10.0) 05/13/21 12:20 RBC 4.68 10^6/uL (4.1-5.3) 05/13/21 12:20 Hgb 14.1 g/dL (11.7-16.6) 05/13/21 12:20 Hct 40.4 % (42.0-52.0) L 05/13/21 12:20 MCV 86.3 fl (80-94) 05/13/21 12:20 MCH 30.1 pg (28.0-34.0) 05/13/21 12:20 MCHC 34.9 g/dL (30.0-36.0) 05/13/21 12:20 RDW 12.4 % (12.1-15.1) 05/13/21 12:20 Plt Count 239 10^3/cmm (130-400) 05/13/21 12:20 MPV 9.5 fL (7.4-10.4) 05/13/21 12:20 Neut % (Auto) 69.5 % 05/13/21 12:20 Lymph % (Auto) 15.4 % 05/13/21 12:20 [place] % (Auto) 11.4 % 05/13/21 12:20 Eos % (Auto) 2.9 % 05/13/21 12:20 Baso % (Auto) 0.5 % 05/13/21 12:20 Neut # (Auto) 6.70 10^3/uL (1.8-7.7) 05/13/21 12:20 Lymph # (Auto) 1.5 10^3/uL (0.8-4.8) 05/13/21 12:20 [place] # (Auto) 1.1 10^3/uL (0.2-0.9) H 05/13/21 12:20 Eos # (Auto) 0.3 10^3/uL (0.0-0.8) 05/13/21 12:20 Baso # (Auto) 0.1 10^3/uL (0.0-0.1) 05/13/21 12:20 Nucleated RBC % (auto) 0 % 05/13/21 12:20 Nucleated RBCs # 0.0 /100WBC 05/13/21 12:20 Sodium 121 mmol/L (136-145) L 05/13/21 13:40 Potassium 4.1 mmol/L (3.5-5.1) 05/13/21 13:40 Chloride 90 mmol/L (98-107) L 05/13/21 13:40 Carbon Dioxide 25 mmol/L (22-29) 05/13/21 13:40 Anion Gap 10.1 (5-19) 05/13/21 13:40 BUN 14 mg/dL (8-23) 05/13/21 13:40 Creatinine 0.9 mg/dL (0.7-1.2) 05/13/21 13:40 GFR Calculation Not Reportable 05/13/21 13:40 Glucose 91 mg/dL (65-115) 05/13/21 13:40 Calculated Osmolality 252 mOsm/kg (285-295) L 05/13/21 13:40 Calcium 9.1 mg/dL (8.5-10.5) 05/13/21 13:40 Total Bilirubin 0.5 mg/dL (0.15-1.2) 05/13/21 12:20 AST 22 U/L (0-40) 05/13/21 12:20 ALT 29 U/L (0-41) 05/13/21 12:20 Alkaline Phosphatase 72 IU/L (40-130) 05/13/21 12:20 Total Protein 7.2 g/dL (6.6-8.7) 05/13/21 12:20 Albumin 4.0 g/dL (3.5-5.2) 05/13/21 12:20 Globulin 3.2 g/dL (1.3-4.6) 05/13/21 12:20 Lipase 23 U/L (13-60) 05/13/21 12:20 Urine Color Yellow (Yellow) 05/13/21 12:20 Urine Appearance Clear (CLEAR) 05/13/21 12:20 Urine pH 7 (5-7) 05/13/21 12:20 Ur Specific [place] 1.005 (1.005-1.030) 05/13/21 12:20 Urine Protein Neg (Negative) 05/13/21 12:20 Urine Glucose (UA) Norm (Normal) 05/13/21 12:20 Urine Ketones Negative (Negative) 05/13/21 12:20 Urine Blood Neg (Negative) 05/13/21 12:20 Urine Nitrate Negative (Negative) 05/13/21 12:20 Urine Bilirubin Neg (Negative) 05/13/21 12:20 Urine Urobilinogen Norm mg/dL (Negative) 05/13/21 12:20 Ur Leukocyte Esterase Negative (Negative) 05/13/21 12:20 Discharge Plan Discharge Patient Disposition: Admitted As Inpatient Clinical Impression: Abdominal pain, Acute hyponatremia Condition: Stable Coding Level of Care Code ED [employer] Screen Watcher for Larissa Fwd Exam Comprehensive
[2021-05-13] MEDS: morphine 4 mg/mL SDV 1 mL IVP (12:34)
[2021-05-13] MEDS: ondansetron 2 mg/ML SDV 2 mL 4 MG IVP (12:35)
[2021-05-13 12:53] LABS: Basophils # 0.1 10^3/uL (0.0-0.1); Basophils % 0.5 %; Eosinophils # 0.3 10^3/uL (0.0-0.8); Eosinophils % 2.9 %; Hematocrit 40.4 % (42.0-52.0); Hemoglobin 14.1 g/dL (11.7-16.6); Lymphocytes # 1.5 10^3/uL (0.8-4.8); Lymphocytes % 15.4 %; Mean Corpuscular HGB Conc 34.9 g/dL (30.0-36.0); Mean Corpuscular Hemoglobin 30.1 pg (28.0-34.0); Mean Corpuscular Volume 86.3 fl (80-94); Mean Platelet Volume 9.5 fL (7.4-10.4); Monocytes # 1.1 10^3/uL (0.2-0.9); Monocytes % 11.4 %; Neutrophils % 69.5 %; Nucleated Red Blood Cells % 0 %; Platelet Count 239 10^3/cmm (130-400); Red Blood Count 4.68 10^6/uL (4.1-5.3); Red Cell Distribution Width 12.4 % (12.1-15.1); White Blood Count 9.7 10^3/uL (4.0-10.0)
[2021-05-13 13:03] LABS: Alanine Aminotransferase 29 U/L (0-41); Alkaline Phosphatase 72 IU/L (40-130); Anion Gap 10.9 (5-19); Aspartate Amino Transferase 22 U/L (0-40); Blood Urea Nitrogen 14 mg/dL (8-23); Calcium 9.6 mg/dL (8.5-10.5); Carbon Dioxide 25 mmol/L (22-29); Chloride 89 mmol/L (98-107); Creatinine Clr Calc Pharmacy 72.6655; Globulin 3.2 g/dL (1.3-4.6); Glucose 107 mg/dL (65-115); Lipase 23 U/L (13-60); Osmolality Calculated 253 mOsm/kg (285-295); Potassium 3.9 mmol/L (3.5-5.1); Sodium 121 mmol/L (136-145); Total Bilirubin 0.5 mg/dL (0.15-1.2); Total Protein 7.2 g/dL (6.6-8.7)
[2021-05-13 13:07] LABS: Add Urine Microscopic? NO; Charge for UA Resulting for Rev
[2021-05-13 13:19] LABS: Bilirubin Urine Neg (Negative); Blood Urine Neg (Negative); Glucose Urine UA Norm (Normal); Ketones Urine Negative (Negative); Leukocyte Esterase Urine Negative (Negative); Nitrate Urine Negative (Negative); Protein Urine Neg (Negative); Specific Gravity, Urine 1.005 (1.005-1.030); Urine Appearance Clear (CLEAR); Urine Color Yellow (Yellow); Urobilinogen Urine Norm (Negative); pH Urine 7 (5-7)
[2021-05-13] MEDS: iohexol 300 mg/mL 100 mL Btl IV (13:19)
[2021-05-13] MEDS: sodium chloride 0.9% 1,000 ML 999 ML IV (13:35)
[2021-05-13 14:17] LABS: Anion Gap 10.1 (5-19); Blood Urea Nitrogen 14 mg/dL (8-23); Calcium 9.1 mg/dL (8.5-10.5); Carbon Dioxide 25 mmol/L (22-29); Chloride 90 mmol/L (98-107); Creatinine Clr Calc Pharmacy 72.6655; Glucose 91 mg/dL (65-115); Osmolality Calculated 252 mOsm/kg (285-295); Potassium 4.1 mmol/L (3.5-5.1); Sodium 121 mmol/L (136-145)
--- NOTE | 2021-05-13 16:29 | CTR_ITS ---
PROCEDURE INFORMATION: Exam: CT Lumbar Spine Without Contrast Exam date and time: 05/13/2021 4:44 PM Age: 80 years old Clinical indication: Low back pain; Patient HX: C/O worsened chronic lbp w/o specific injury TECHNIQUE: Imaging protocol: Computed tomography images of the lumbar spine without contrast. Radiation optimization: All CT scans at this facility use at least one of these dose optimization techniques: automated exposure control; mA and/or kV adjustment per patient size (includes targeted exams where dose is matched to clinical indication); or iterative reconstruction. COMPARISON: CT abdomen pelvis w con* [id number] 05/13/2021 1:19 PM RADIATION DOSE METRICS: Total DLP (mGy-cm): 2463.86 FINDINGS: Vertebrae: No acute fracture. Normal alignment. L1-L2: No significant disc protrusion. No severe spinal canal stenosis. No significant neural foraminal narrowing. L2-L3: There is a diffuse disc bulge which in association with ligamentum flavum hypertrophy and bilateral facet disease results in mild central canal stenosis. There is mild bilateral neural foraminal narrowing. There is vacuum disc phenomenon. L3-L4: There is a diffuse disc bulge which in association with ligamentum flavum hypertrophy and bilateral facet disease results in mild central canal stenosis. There is mild bilateral neural foraminal narrowing. L4-L5: There is a diffuse disc bulge which in association with ligamentum flavum hypertrophy and bilateral facet disease results in mild central canal stenosis. There is mild bilateral neural foraminal narrowing. L5-S1: There is disc space narrowing and osteophyte formation at L5/S1 with vacuum disc phenomenon.There is a diffuse disc bulge which in association with ligamentum flavum hypertrophy and bilateral facet disease results in mild central canal stenosis. There is mild right and moderate left neural foraminal narrowing. Soft tissues: Unremarkable. CT/CT lumbar spine wo con* [id number] IMPRESSION: There are no acute concerning abnormalities. Degenerative change is identified in the spine. If there is desire for further evaluation, a MRI could be performed.
--- NOTE | 2021-05-13 16:34 | P.HP_ITS ---
Providers/Chief Complaint Primary Care Provider: Adi Walters MD Chief Complaint: lwr stomach and back pain History of Present Illness Joe Nowak is a 80 year old male with past medical history of BPH, bilateral cochlear implants, hypertension, diverticulitis presented to the ER with complaints of lower abdominal pain which is relieved by passing urine and having bowel movements. Patient states while passing urine and having bowel movements he has slight burning. States for a long time he passes frequent little amount of urine because of prostate issues. Usually when he has this pain he has diverticulitis and he thought the pain is secondary to diverticulitis again so he went to his primary care provider on Friday and was started on Cipro and Flagyl. As pain did not subside he presented to the ER today. Pain is also associated with pain in his back radiating to bilateral testicles. He states whenever he has the back pain he feels like' somebody hit smashing his testicles'. Denies of having any fevers, bowel or bladder incontinence, difficulty in walking or loss of balance. Blood work in the ER showed Novantrone 9.7, hemoglobin of 14.1, sodium of 121, potassium 4.1, chloride of 90, creatinine of 0.9, AST/ALT of 22/29, lipase 23, UA negative for nitrite, negative for leuk esterase with CT abdomen pelvis as below. Review of Systems General: Reports: 10 or more systems reviewed and unremarkable except in HPI and below Const: Denies: fever(s), chills, body aches, change in appetite, change in weight, malaise, night sweats, diaphoresis, change in sleep pattern, daytime sleepiness or snoring Eyes: Denies: change in vision, blurry vision, photophobia, eye discomfort or eye discharge ENMT: Denies: throat pain, enlarged tonsils, hoarseness, mouth pain, oral sores, dry mouth, tinnitus, nasal congestion or post nasal drip Card: Denies: chest pain, palpitations, irregular heart rhythm, edema, swellin g of feet/ankles, lightheadedness, syncope, pre-syncope, dyspnea on exertion, orthopnea, leg pain with exertion or acrocyanosis Resp: Denies: dyspnea, productive cough, non-productive cough, wheezing, stridor, pain on inspiration, change in phlegm color, hemoptysis or chest congestion GI: Denies: abdominal pain, nausea, vomiting, hematemesis, coffee ground emesis, dysphagia, heartburn, diarrhea, constipation, bloating, GI cramping, change in bowel habits, pain on defecation, hematochezia or melena : Denies: flank pain, difficulty urinating, dysuria, urinary frequency, urinary urgency, urinary hesitancy, urinary dribbling, difficulty starting urination, change in urine stream, nocturia or hematuria Musc: Denies: neck pain, back pain, extremity pain, joint pain, joint s welling, joint redness, joint stiffness or limited range of motion Neuro: Denies: headache(s), numbness in extremities, weakness in extremities, sensory changes, lack of coordination, difficulty walking, frequent falls, dizziness, vertigo, confusion, Slurred speech present, difficulty communicating thoughts or seizure-like activity Psych: Denies: anxiety, depression, mood swings, panic attacks, hopelessness or irritability Endo: Denies: polyuria, polydipsia, tired all the time, cold intolerance, excessive sweating, flushing or heat intolerance Zak/Lymph: Denies: easy bruising or easy bleeding All/Imm: Denies: tongue swelling, facial swelling or acute wheezing Medications/Allergies Home Medications Medication Instructions Recorded Confirmed Last Taken Type antiarthritic combination no.2 900 900 mg PO DAILY tab 09/07/19 05/13/21 05/13/21 History mg tablet (glucosamine-chondroitin) citalopram 20 mg tablet (Celexa) 20 mg PO DAILY 09/07/19 05/13/21 05/13/21 Histo ry lisinopril 20 1 tab PO DAILY 09/07/19 05/13/21 05/13/21 History mg-hydrochlorothiazide 25 mg tablet metoprolol tartrate 100 mg tablet 100 mg PO BID 09/07/19 05/13/21 05/13/21 History simvastatin 20 mg tablet 20 mg PO BEDTIME 01/19/20 05/13/21 05/12/21 History aspirin 81 mg tablet,delayed 81 mg PO DAILY 08/14/20 05/13/21 05/13/21 History release metronidazole 500 mg tablet 500 mg PO BID 08/14/20 05/13/21 05/13/21 History omeprazole 20 mg capsule,delayed 20 mg PO BID #0 cap 08/14/20 05/13/21 05/13/21 Rx release vit C 250 mg-vit E 90 mg-zinc 40 1 tab PO BID 08/14/20 05/13/21 05/13/21 History mg-copper 1 mw-fosrpv-xiefcy capsule (PreserVision AREDS-2) hydrocodone 5 mg-acetaminophen 325 1 tab PO Q6H PRN #25 tab 08/15/20 05/13/21 Unknown Rx mg tablet tamsulosin 0.4 mg capsule 0.4 mg PO .Twice daily #180 cap 11/14/20 05/13/21 05/13/21 Rx ciprofloxacin HCl 500 mg tablet 500 mg PO BID 05/13/21 05/13/21 05/13/21 History Allergies Allergy/AdvReac Type Severity Reaction Status Date / Time No Known Allergies Allergy Verified 11/14/20 10:49 PFSH Acute PFSH: Medical History (Updated 05/13/21 @ 16:39 by Tyrese Khan MD) 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 GERD (gastroesophageal reflux disease) Gross hematuria Hx of diverticulitis of colon Hypercholesteremia Hypertension Right carpal tunnel syndrome Surgical History H/O colonoscopy H/O right inguinal hernia repair Family History Father CAD (coronary artery disease) Mother CAD (coronary artery disease) Social History Smoking and tobacco status: former smoker Alcohol intake: never Adopted: No Household members: spouse Housing: House Marital status: Number of children: 3 Highest education level completed: High School Graduate Current occupational status: retired Pets and animals: Yes Current gender identity: Male Vitals/I&O/Wt Last Vital Signs Temp 98.3 F 05/13/21 12:52 Pulse 61 05/13/21 12:08 Resp 16 05/13/21 12:52 BP 147/103 05/13/21 12:52 Pulse Ox 96 05/13/21 12:08 05/13/21 05/13/21 05/13/21 06:59 14:59 22:59 Intake Total 1000 / 1000 Balance 1000 / 1000 Weight last 48 hrs Weight 90.718 kg Physical Exam Narrative: General: No acute distress, AO x3, pleasant, hard of hearing HEENT: PERRLA, pupils bilaterally equal and reactive Chest: Normal vesicular breath sounds, no added sounds, equal good air entry bilaterally CVS: S1-S2 regular, no murmurs, no tachycardia, no gallops, no rubs Abdomen: Soft, mild tenderness in lower abdomen, no organomegaly, bowel sounds present Neuro: No focal deficits, no facial deformity, AO x3, power 5/5 in all limbs Data : 05/13/21 12:20 05/13/21 13:40 A&P Assessment and plan (1) Acute hyponatremia: Secondary to dehydration from poor oral intake versus SIADH secondary to ci talopram versus secondary to hydrochlorothiazide. For now start on normal saline at 75 cc/h. Check proBNP, A1c, urine lites, lipid panel. Repeat BMP every 12 hours for now. Strict input output charting. Status: Acute (2) Abdominal pain: Patient here history of diverticulitis in the past. Patient states pain is similar. CT abdomen pelvis consistent for possible pancreatitis. Lipase within normal limits. Patient's examination not consistent with pancreatitis. Can be secondary to prostatitis though UA clear. CT abdomen pelvis done in the ER did not show any nephroureterolithiasis. Could be referred pain from back pain. Check CT lumbar spine. Stool studies. Kidney ultrasound with prostate volume. Status: Acute (3) BPH loc w urin obs/LUTS: Status: Acute Plan History of diverticulitis: Patient was on Cipro and Flagyl for last 5 days. For now start on Zosyn. Stool studies. Blood culture. Repeat urinalysis. Continue other chronic medication including aspirin, citalopram, metoprolol, simvastatin, Flomax. Hypertension: Goal blood pressure less than 140/90 mmHg. Hold off on lisinopril hydrochlorothiazide for now. Continue with metoprolol. Back pain: History of trauma in the past. CT lumbar spine to rule out nerve impingement. Full code. Mechanical soft diet. Heparin for DVT prophylaxis Protonix for PUD prophylaxis Attestations Medical Necessity Statement*: Admission for monitor overnight for management of acute hyponatremia, abdominal pain Time Spent in Patient Care: Greater than 35 minutes Coding Level of Care Code Acute Bilingual Case Manager for [facility] Fwd Diagnoses Acute hyponatremia E87.1 Abdominal pain R10.9 BPH loc w urin obs/LUTS N40.1
[2021-05-13] MEDS: pantoprazole 40 mg SDV IVP (17:07)
[2021-05-13] MEDS: metoprolol tartrate 50 mg Tablet 100 MG PO (17:07)
[2021-05-13] MEDS: ferrous gluconate 324 mg Tablet PO (17:07)
[2021-05-13] MEDS: tamsulosin 0.4 mg Capsule PO (17:10)
[2021-05-13] MEDS: sodium chloride 0.9% 1,000 ML 75 ML IV (17:14)
[2021-05-13] MEDS: heparin 5,000 unit/mL INJ 1 mL 5000 UNIT SUBCUT (17:15)
[2021-05-13 17:18] LABS: Iron 69 ug/dL (59-158); Percent Saturation 27.7 % (20-50); Total Iron Binding Capacity 249 mcg/dl; Unsaturated Iron Binding 180 ug/dL (112-347)
[2021-05-13 17:25] LABS: Potassium, Radom Urine 15 mmol/L; Procalcitonin 0.06 ng/mL (0-0.5); Urine Random Chloride 61 mmol/L; Urine Random Sodium 67 mmol/L
[2021-05-13 17:26] LABS: Thyroid Stimulating Hormone 4.49 uIU/mL (0.27-4.20)
--- NOTE | 2021-05-13 17:57 | PC.NURSE ---
Attempted to call report, no answer at this time.
[2021-05-13 18:37] LABS: Add Urine Microscopic? NO; Charge for UA Resulting for Rev
[2021-05-13 18:45] LABS: Bilirubin Urine Neg (Negative); Blood Urine Neg (Negative); Glucose Urine UA Norm (Normal); Ketones Urine Negative (Negative); Leukocyte Esterase Urine Negative (Negative); Nitrate Urine Negative (Negative); Protein Urine Neg (Negative); Urine Appearance Clear (CLEAR); Urine Color Yellow (Yellow); Urobilinogen Urine Norm (Negative); pH Urine 5 (5-7)
[2021-05-13] MEDS: atorvastatin 40 mg Tablet 20 MG PO (20:29)
[2021-05-14] VITALS (7 sets, daily range): BP systolic 93–157; BP diastolic 45–89; PULSE 54–69; RESP 17–18; TEMP 36.5–36.6; O2SAT 94–97
[2021-05-14] MEDS: heparin 5,000 unit/mL INJ 1 mL 5000 UNIT SUBCUT (05:16)
[2021-05-14] MEDS: sodium chloride 0.9% 1,000 ML 75 ML IV (05:17)
[2021-05-14] MEDS: pantoprazole 40 mg SDV IVP (05:17)
[2021-05-14 06:05] LABS: Basophils # 0.1 10^3/uL (0.0-0.1); Basophils % 0.8 %; Eosinophils # 0.2 10^3/uL (0.0-0.8); Eosinophils % 3.9 %; Hematocrit 37.5 % (42.0-52.0); Hemoglobin 12.8 g/dL (11.7-16.6); Lymphocytes # 1.3 10^3/uL (0.8-4.8); Mean Corpuscular HGB Conc 34.1 g/dL (30.0-36.0); Mean Corpuscular Hemoglobin 29.4 pg (28.0-34.0); Mean Platelet Volume 9.6 fL (7.4-10.4); Monocytes # 0.9 10^3/uL (0.2-0.9); Monocytes % 14.7 %; Neutrophils # 3.66 10^3/uL (1.8-7.7); Neutrophils % 59.1 %; Nucleated Red Blood Cells % 0 %; Platelet Count 208 10^3/cmm (130-400); Red Blood Count 4.36 10^6/uL (4.1-5.3); Red Cell Distribution Width 12.5 % (12.1-15.1); White Blood Count 6.2 10^3/uL (4.0-10.0)
[2021-05-14 06:30] LABS: Estmated Average Glucose 114; Hemoglobin A1C 5.6 % (4.0-6.0)
[2021-05-14 06:34] LABS: Chol HDL Ratio 3.74 mg/dL (1.0-5.00); Cholesterol 101 mg/dL (0-200); HDL Cholesterol 27 mg/dL (60-100); LDL Cholesterol Calculated 52 mg/dL (50-129); Lipase 29 U/L (13-60); Triglycerides 109 mg/dL (0-150); VLDL Cholestrol Calculation 22 mg/dL (0-30)
[2021-05-14 06:37] LABS: Albumin Level 3.6 g/dL (3.5-5.2); Alkaline Phosphatase 67 IU/L (40-130); Chloride 98 mmol/L (98-107); Potassium 4.7 mmol/L (3.5-5.1); Sodium 132 mmol/L (136-145)
[2021-05-14 07:13] LABS: Alanine Aminotransferase 21 U/L (0-41); Anion Gap 15.7 (5-19); Aspartate Amino Transferase 19 U/L (0-40); Blood Urea Nitrogen 15 mg/dL (8-23); Calcium 9.2 mg/dL (8.5-10.5); Carbon Dioxide 23 mmol/L (22-29); Globulin 2.6 g/dL (1.3-4.6); Glucose 94 mg/dL (65-115); Magnesium 1.7 mg/dL (1.7-2.3); Osmolality Calculated 275 mOsm/kg (285-295); Phosphorus 3.7 mg/dL (2.5-4.5); Total Bilirubin 0.3 mg/dL (0.15-1.2); Total Protein 6.2 g/dL (6.6-8.7)
[2021-05-14] MEDS: tamsulosin 0.4 mg Capsule PO (08:51)
[2021-05-14] MEDS: aspirin 81 mg EC Tablet PO (08:51)
[2021-05-14] MEDS: ferrous gluconate 324 mg Tablet PO (08:51)
[2021-05-14] MEDS: citalopram 20 mg Tablet PO (08:51)
[2021-05-14] MEDS: metoprolol tartrate 50 mg Tablet 100 MG PO (08:51)
[2021-05-14] MEDS: HYDROcodone-acetaminophen 5-325 mg Tablet 1 TAB PO (09:00)
--- NOTE | 2021-05-14 10:24 | PC.CHAP ---
Pastoral Care Encounter/Spiritual Assessment Type of Contact [] Declined air box tester visit [] Patient/Family/Request visit [] Outpatient visit [] Follow-up visit [] Physician referral [] Code/Alert [x] Routine visit [] Staff referral [] Actively dying [] Patient sleeping [] Family support [] [] Out of room [] Palliative care [] [] Receiving care in room [] Pre-surgical visit [] Trauma [] Long length of stay [] ICU visit [] Other: Relational/Emotional Strength [x] Patient feels connected with others/family/visitors/staff [] Distress [] Loneliness/isolation [] Abandonment Spirituality of Patient [x] Person of Yuki [] Attends Catholic of their Yuki [x] Believes in Prayer [] Reads Bible or Pentecostal materials [] There are Spiritual issues to be addressed Assistant Construction 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 Interventions [x] Prayer [x] Active listening [x] Non-anxious presence x[x] Spiritual/emotional support [] Crisis/trauma care [] Spiritual counseling [] Bereavement support [] Provided bereavement packet [] Provided Bible/devotional materials [] Provided toy/stuffed animal, coloring book to patient or family member [] Provided Communion [] Anointing/Harmony [] Salvation [] Completed spiritual assessment [] Other: Impact on Illness or Injury [] Angry [] Fearful [] Anxious [] Often cries [] Exhaustion [] Unable to work [] Unable to attend jain [] Unable to walk/stand [] Unable to read [] Unable to drive [] Unable to eat/drink [] Unable to sleep [] Unable to be with family [] Patient intubated [] Other: Summary Time spent with patient 10 min
--- NOTE | 2021-05-14 10:38 | P.DS_ITS ---
Discharge Providers Date of Admission: 05/13/21 14:44 Date of Discharge: May 14, 2021 Attending Provider at Admission: Tyrese Khan MD Attending Provider at Discharge: Jim Mims MD Primary Care Provider: Adi Walters MD Diagnoses at Discharge Discharge Diagnosis (1) Acute hyponatremia: Status: Acute (2) Abdominal pain: Status: Acute (3) BPH loc w urin obs/LUTS: Status: Acute Reason for Visit Reason for Visit: lwr stomach and back pain Hospital Course Hospital Course Joe Nowak is a 80 year old male with past medical history of BPH, bilateral cochlear implants, hypertension, diverticulitis presented to the ER with complaints of lower abdominal pain which is relieved by passing urine and having bowel movements. For patient's pain, he had a component of bilateral inguinal pain, has a history of bilateral inguinal hernia surgery by Dr. Norman, he tells me that this is chronically an issue for him, he chronically has inguinal pain, he he tells me t hat he had his nerves cut during surgery and that has chronic leg giving him pain. Suddenly now the pain is worse, during examination, I did bilateral hernia exam, did not appreciate any reoccurrence of inguinal hernias bilaterally, CT scan did not show any significant recurrence of the inguinal hernia, no incarceration. For neuropathic pain of discharge him on gabapentin 300 mg twice daily, Ultram 50 mg twice daily as needed as needed for severe pain, follow Dr. Walters, follow with Dr. Norman Patient also had a component of left lower quadrant pain, he recently was treated for diverticulitis through Dr. Walters, was on his last day of oral antibiotics, continues to have some left lower quadrant abdominal pain, no diarrhea, having appropriate stools, no nausea, vomiting, CT scan upon review with radiology did show some component of diverticulitis. I have discharged him on 7 more days of Cipro and Flagyl, tramadol to be used sparingly for pain, follow-up for Dr. Norman as outpatient for consideration for surgery. As patient has had 10 episodes of diverticulitis, and also hospitalizations for severe episodes of diverticulitis. For patient's back pain, he tells he has chronic back pain Vertebrae: No acute fracture. Normal alignment. L1-L2: No significant disc protrusion. No severe spinal canal stenosis. No significant neural foraminal narrowing. L2-L3:? There is a diffuse disc bulge which in association with ligamentum flavum hypertrophy and bilateral facet disease results in mild central canal stenosis.? There is mild bilateral neural foraminal narrowing.? There is vacuum disc phenomenon. L3-L4: There is a diffuse disc bulge which in association with ligamentum flavum hypertrophy and bilateral facet disease results in mild central canal stenosis.? There is mild bilateral neural foraminal narrowing.? L4-L5: There is a diffuse disc bulge which in association with ligamentum flavum hypertrophy and bilateral facet disease results in mild central canal stenosis.? There is mild bilateral neural foraminal narrowing.? L5-S1:? There is disc space narrowing and osteophyte formation at L5/S1 with vacuum disc phenomenon.There is a diffuse disc bulge which in association with ligamentum flavum hypertrophy and bilateral facet disease results in mild central canal stenosis.? There is mild right and moderate left neural foraminal narrowing. -CT scan as above -Does have evidence of disc bulging, facet arthropathy, central spinal canal stenosis. I have discharged him on gabapentin as above, Ultram to be used sparingly as above, follow-up with Dr. Walters as outpatient On admission there was concerns for pancreatitis there was CT evidence of pancreatitis, lipase was within normal limits, patient's pain was not remotely in the location of the pancreas, but did have back pain. Was conservatively managed, IV fluids, advance diet, tolerated diet well, discharged on GI soft diet Physical Exam Const: COMMON NORMALS: no acute distress and patient oriented x3 Resp: COMMON NORMALS: normal respiratory effort, No retractions, No use of accessory muscles and clear to auscultation bilaterally AUSCULTATION: clear to auscultation bilaterally Cardio: COMMON NORMALS: regular rate, regular rhythm, S1 normal heart sound present and S2 normal heart sound present RATE: regular rate RHYTHM: regular rhythm HEART SOUNDS: S1 normal heart sound present and S2 normal heart sound present GI: COMMON NORMALS: Normal to inspection, nondistended, normoactive bowel sounds present, Soft to palpation, non-tender and No hepatosplenomegaly present PALPATION: Yes Soft to palpation and Yes No hepatosplenomegaly present Extremity: COMMON NORMALS: no pedal edema Neuro: COMMON NORMALS: patient oriented x3 Psych: COMMON NORMALS: mental status grossly normal Discharge Data Studies Completed and Pending Completed Studies During Hospitalization Category Date Time Status CT abdomen pelvis w con* [id number] Urgent Cat Scan 05/13/21 12:[address] lumbar spine wo con* [id number] Urgent Cat Scan 05/13/21 16:29 Completed Pending at discharge Category Date Time Status Blood Culture Stat Lab 05/13/21 22:27 Results Clostridioides Difficile PCR Routine Lab 05/13/21 16:29 Ordered Enteric Bacterial Panel by PCR Routine Lab 05/13/21 16:29 Ordered Enteric Parasite Panel by PCR Routine Lab 05/13/21 16:29 Ordered Immunochemical Fecal OCB Routine Lab 05/13/21 16:29 Ordered Lactoferrin Routine Lab 05/13/21 16:29 Ordered Radiology Impressions Abdomen/Pelvis CT 05/13/21 12:25 IMPRESSION: Findings are consistent with acute pancreatitis. Correlation with amylase and lipase are suggested. Lumbar Spine CT 05/13/21 16:29 IMPRESSION: There are no acute concerning abnormalities. Degenerative change is identified in the spine. If there is desire for further evaluation, a MRI could be performed. Laboratory Results WBC 6.2 10^3/uL (4.0-10.0) 05/14/21 05:21 RBC 4.36 10^6/uL (4.1-5.3) 05/14/21 05:21 Hgb 12.8 g/dL (11.7-16.6) 05/14/21 05:21 Hct 37.5 % (42.0-52.0) L 05/14/21 05:21 MCV 86.0 fl (80-94) 05/14/21 05:21 MCH 29.4 pg (28.0-34.0) 05/14/21 05:21 MCHC 34.1 g/dL (30.0-36.0) 05/14/21 05:21 RDW 12.5 % (12.1-15.1) 05/14/21 05:21 Plt Count 208 10^3/cmm (130-400) 05/14/21 05:21 MPV 9.6 fL (7.4-10.4) 05/14/21 05:21 Neut % (Auto) 59.1 % 05/14/21 05:21 Lymph % (Auto) 21.0 % 05/14/21 05:21 [place] % (Auto) 14.7 % 05/14/21 05:21 Eos % (Auto) 3.9 % 05/14/21 05:21 Baso % (Auto) 0.8 % 05/14/21 05:21 Neut # (Auto) 3.66 10^3/uL (1.8-7.7) 05/14/21 05:21 Lymph # (Auto) 1.3 10^3/uL (0.8-4.8) 05/14/21 05:21 [place] # (Auto) 0.9 10^3/uL (0.2-0.9) 05/14/21 05:21 Eos # (Auto) 0.2 10^3/uL (0.0-0.8) 05/14/21 05:21 Baso # (Auto) 0.1 10^3/uL (0.0-0.1) 05/14/21 05:21 Nucleated RBC % (auto) 0 % 05/14/21 05:21 Nucleated RBCs # 0.0 /100WBC 05/14/21 05:21 Sodium 132 mmol/L (136-145) L 05/14/21 05:21 Potassium 4.7 mmol/L (3.5-5.1) 05/14/21 05:21 Chloride 98 mmol/L (98-107) 05/14/21 05:21 Carbon Dioxide 23 mmol/L (22-29) 05/14/21 05:21 Anion Gap 15.7 (5-19) 05/14/21 05:21 BUN 15 mg/dL (8-23) 05/14/21 05:21 Creatinine 0.9 mg/dL (0.7-1.2) 05/14/21 05:21 GFR Calculation Not Reportable 05/14/21 05:21 Glucose 94 mg/dL (65-115) 05/14/21 05:21 Estimat Average Glucose 114 05/14/21 05:21 Hemoglobin A1c 5.6 % (4.0-6.0) 05/14/21 05:21 Calculated Osmolality 275 mOsm/kg (285-295) L 05/14/21 05:21 Calcium 9.2 mg/dL (8.5-10.5) 05/14/21 05:21 Phosphorus 3.7 mg/dL (2.5-4.5) 05/14/21 05:21 Magnesium 1.7 mg/dL (1.7-2.3) 05/14/21 05:21 Iron 69 ug/dL (59-158) 05/13/21 12:20 TIBC 249 mcg/dl 05/13/21 12:20 % Saturation 27.7 % (20-50) 05/13/21 12:20 Unsat Iron Binding 180 ug/dL (112-347) 05/13/21 12:20 Total Bilirubin 0.3 mg/dL (0.15-1.2) 05/14/21 05:21 AST 19 U/L (0-40) 05/14/21 05:21 ALT 21 U/L (0-41) 05/14/21 05:21 Alkaline Phosphatase 67 IU/L (40-130) 05/14/21 05:21 Total Protein 6.2 g/dL (6.6-8.7) L 05/14/21 05:21 Albumin 3.6 g/dL (3.5-5.2) 05/14/21 05:21 Globulin 2.6 g/dL (1.3-4.6) 05/14/21 05:21 Triglycerides 109 mg/dL (0-150) 05/14/21 05:21 Cholesterol 101 mg/dL (0-200) 05/14/21 05:21 LDL Cholesterol, Calc 52 mg/dL (50-129) 05/14/21 05:21 Total VLDL Cholesterol 22 mg/dL (0-30) 05/14/21 05:21 HDL Cholesterol 27 mg/dL (60-100) L 05/14/21 05:21 Cholesterol/HDL Ratio 3.74 mg/dL (1.0-5.00) 05/14/21 05:21 Lipase 29 U/L (13-60) 05/14/21 05:21 Procalcitonin 0.06 ng/mL (0-0.5) 05/13/21 12:20 TSH 4.49 uIU/mL (0.27-4.20) H 05/13/21 12:20 Urine Color Yellow (Yellow) 05/13/21 18:30 Urine Appearance Clear (CLEAR) 05/13/21 18:30 Urine pH 5 (5-7) 05/13/21 18:30 Ur Specific [place] 1.010 (1.005-1.030) 05/13/21 18:30 Urine Protein Neg (Negative) 05/13/21 18:30 Urine Glucose (UA) Norm (Normal) 05/13/21 18:30 Urine Ketones Negative (Negative) 05/13/21 18:30 Urine Blood Neg (Negative) 05/13/21 18:30 Urine Nitrate Negative (Negative) 05/13/21 18:30 Urine Bilirubin Neg (Negative) 05/13/21 18:30 Urine Urobilinogen Norm mg/dL (Negative) 05/13/21 18:30 Ur Leukocyte Esterase Negative (Negative) 05/13/21 18:30 Ur Random Sodium 67 mmol/L 05/13/21 12:20 Ur Random Potassium 15 mmol/L 05/13/21 12:20 Ur Random Chloride 61 mmol/L 05/13/21 12:20 Vitals Last Vital Signs Temp 97.7 F 05/14/21 08:00 Pulse 60 05/14/21 08:00 Resp 18 05/14/21 08:00 BP 156/64 05/14/21 08:00 Pulse Ox 94 05/14/21 09:53 Discharge Plan Discharge Patient Disposition: Home Condition: Stable Prescriptions: New Ultram 50 mg tablet 50 mg PO BID PRN (Reason: pain) 7 Days Qty: 14 0RF gabapentin 300 mg Capsule 300 mg PO Q12H 30 Days Qty: 60 0RF Continued citalopram [Celexa] 20 mg tablet 20 mg PO DAILY 0RF metoprolol tartrate 100 mg tablet 100 mg PO BID 0RF lisinopril-hydrochlorothiazide 20-25 mg tablet 1 tab PO DAILY 0RF glucosamine-chondroitin 900 mg tablet 900 mg PO DAILY 0RF tamsulosin 0.4 mg capsule 0.4 mg PO .Twice daily Qty: 180 3RF simvastatin 20 mg Tablet 20 mg PO BEDTIME 0RF hydrocodone-acetaminophen 5-325 mg tablet 1 tab PO Q6H PRN (Reason: pain) Qty: 25 0RF aspirin [Aspir-81] 81 mg Tablet,Delayed Release (Dr/Ec) 81 mg PO DAILY 0RF PreserVision AREDS-2 250-90-40-1 mg Capsule 1 tab PO BID 0RF omeprazole 20 mg capsule,delayed release(DR/EC) 20 mg PO BID Qty: 0 0RF metronidazole 500 mg tablet 500 mg PO BID 7 Days Qty: 14 0RF ciprofloxacin HCl 500 mg tablet 500 mg PO BID 7 Days Qty: 14 0RF Discharge Orders: Discharge Order (Routine); Ordered 05/14/21 Ordered By: Jim Mims Referrals: Lul Norman MD [Physician] - 06/26/21 9:00 am Adi Walters MD [Primary Care Provider] - Discharge Diet: GI Soft Discharge Activity: Resume usual activity Patient Instructions: Gabapentin (By mouth) (Neurontin, FusePaq Fanatrex, Gralise,..., Tramadol (By mouth) (Ultram, Ultram ER, [place], Theratramadol-60, Qdolo), Diverticulitis (DC), High Fiber Diet (DC), Opioid Safety Activity Restrictions/Additional Instructions: -Take gabapentin 300 mg twice daily for neuropathic pain, do not drive or operate heavy machinery while taking the medication. If you feel lightheaded or dizzy stop medication -Take Ultram 50 mg twice daily as needed for diverticulitis, neuropathic pain, back pain, please use sparingly, do not drive or operate heavy machinery while taking medication, if you feel lightheaded or dizzy please stop medication -Follow-up with Dr. Walters in a week -For diverticulitis take another week of antibiotics -Follow-up with general surgery for consideration of surgical interventions -For bilateral inguinal pain, follow-up with Dr. Norman Discharge Attestations Time Spent in Discharge Care*: less than 30 min Quality Metrics Clinical Quality Measures [ No reported AMI, CVA or VTE this stay] Coding Level of Care Code Acute Chg FW DC note Diagnoses Acute hyponatremia E87.1 Abdominal pain R10.9 BPH loc w urin obs/LUTS N40.1
[2021-05-14] MEDS: gabapentin 300 mg Capsule PO (12:08)
--- NOTE | 2021-05-14 14:33 | PC.NURSE ---
Patient and verbalized understanding of discharge instructions, home medications, and follow up appointments.
== END 2021-05-14 14:37 | disposition home or self-care (01) | DRG 641 ==
LOC: ER 15:29 → MEDSURG 17:17
PROVIDERS: Admitting Provider Student in an Organized Health Care Education/Training Program; Emergency Provider Emergency Medicine; PCP Family Medicine; Visit Provider Family Medicine
DX: E87.1 Hypo-osmolality and hyponatremia (principal); K57.92 Diverticulitis of intestine, part unspecified, without perforation or abscess without bleeding; Z87.891 Personal history of nicotine dependence; N40.1 Benign prostatic hyperplasia with lower urinary tract symptoms; Z96.21 Cochlear implant status; I10 Essential (primary) hypertension; Z79.82 Long term (current) use of aspirin; G62.9 Polyneuropathy, unspecified; G89.29 Other chronic pain; M51.26 Other intervertebral disc displacement, lumbar region; Z79.891 Long term (current) use of opiate analgesic
CPT/HCPCS: 36415; 72131; 74177; 80048; 80053; 80061; 81003; 82436; 83036; 83540; 83550; 83690; 83735; 84100; 84133; 84145; 84300; 84443; 85025; 86403; 87040; 87449; 87641; 94664; 96372; C9113; J1644; J2270; J2405; J7030; Q9967

== ENCOUNTER 2021-07-20 06:00 | Outpatient (RCR) | payer MEDICARE, OTHER, SELFPAY | END 2021-08-16 23:59 | disposition home or self-care (01) | LOC: APT 06:00 | PROVIDERS: PCP Family Medicine; Referring Provider Family Medicine; Visit Provider Family Medicine | DX: R42 Dizziness and giddiness (principal) | CPT/HCPCS: 95992; 97110; 97163 ==

== ENCOUNTER 2021-08-17 06:00 | Outpatient (RCR) | payer MEDICARE, OTHER, SELFPAY | END 2021-09-16 23:59 | disposition home or self-care (01) | LOC: APT 06:00 | PROVIDERS: PCP Family Medicine; Referring Provider Family Medicine; Visit Provider Family Medicine | DX: R42 Dizziness and giddiness (principal) | CPT/HCPCS: 95992; 97110 ==

== ENCOUNTER 2022-08-30 10:13 | Outpatient (CLI) | payer MEDICARE, OTHER, SELFPAY ==
--- NOTE | 2022-08-30 10:18 | ECG_ITS ---
[facility] Test Date: 2022-08-30 Pat Name: Joe Nowak Department: Room: Gender: Male Clinical Appeals Auditor: : [id number] Requested By: Adi Roach Order Number: [id number] Artemio MD: Meggan Garcia M.D. Interpretive Statements NAME OF STUDY: LEXISCAN SESTAMIBI STRESS TEST INDICATION: Chest Pain PROCEDURE: At the baseline, the blood pressure was 130/70 mm Hg with a heart rate of 55 bpm. The electrocardiogram showed sinus rhythm, normal axis. Non specific T wave changes. ??? The Lexiscan was infused over a period of 20 seconds. A total of 0.4 milligrams of Lexiscan was infused. The stress phase was continued for a total of 5 minutes. Heart rate at the end of the stress phase was 61 bpm with a blood pressure of 114/60 mm Hg. The EKG at the peak infusion revealed no significant ST-T wave chnages. ??? Sestamibi was injected 20 seconds after the Lexiscan infusion. ??? Blood pressure at the end of the recovery phase was 115/80 mm Hg with a heart rate of 60 beats per minute. ??? CONCLUSION: 1. No significant EKG changes with the LexiScan infusion. 2. No LexiScan induced chest pain or cardiac arrhythmia. 3. Normal blood pressure and heart rate response. 4. Sestamibi/sestamibi perfusion scan pending; see separate report. Electronically Signed On 08-31-2022 10:29:55 CDT by Meggan Garcia M.D. [id number]
--- NOTE | 2022-08-30 10:19 | NMCV_ITS ---
NM tony perf SPECT r/s* [id number] Joe Nowak Age: 81 Gender: M : 1940 Exam Date: 08/30/2022 11:18 Ordering Phys: Adi Walters MD Technologist: TYRELL Franco Exam Location: [facility] Indications: ANGINA PECTORIS STRESS TEST Please see separate stress test report in [facility] for full findings IMAGE PROTOCOL Rest/Stress 1 Lexiscan Day Radiopharmaceutical Dose (mCi) Administration Site Administered by Rest: Tc-99m 10.8 IV Edmar Alvarez, MEDICAL OFFICE RECEPTIONIST ASSISTANT Sestamibi Stress:Tc-99m 32.5 IV TYRELL Franco Sestamibi Rest: 30-Aug-2022 60 Discovery 630 Stress: 30-Aug-2022 30 Discovery 630 0.4mg Lexiscan. Images obtained in supine and prone position. SPECT RESULTS Technical Quality: Excellent Raw Data Analysis: Normal Image Corrections: No attenuation or motion correction applied Summed Stress Score: 0 Summed Rest Score: 0 Summed Difference Score: 0 PERFUSION FINDINGS SPECT images demonstrate homogeneous tracer distribution throughout the myocardium. FUNCTIONAL RESULTS (calculated via Gated SPECT) Stress Image LV EF (%): 65 Stress EDV (mL):88 TID: 1.19 Stress ESV (mL):31 FUNCTIONAL FINDINGS: The left ventricle is normal in size. Transient Ischemia Dilatation of 1.2. There is normal left ventricular systolic function. The left ventricular ejection fraction is normal with a value of 65%. There is normal left ventricular wall thickening. IMPRESSIONS 1. Myocardial perfusion imaging is normal. 2. Overall left ventricular systolic function is normal without regional wall motion abnormalities, LVEF=65%. 3. EKG potion of the study will be documented separately. 4. Scan indicates low risk for cardiac events. Meggan Garcia MD (Electronically Signed) Final Date: 02 September 2022 08:37 S
[2022-08-30 10:40] VITALS: BMI 31.3
--- NOTE | 2022-08-30 10:46 | PC.NURSE ---
Patient stated that he took both of his BP meds this AM (LISINOPRIL AND METOPROLOL). He stated that the paper they gave me didn't say to hold anything except caffeine . This nurse could not get through to Andriy Souza to get ahold of Dr. Walters. Dr. Garcia was notified of the situation and orders were received to change the test to a Lexiscan Sestamibi Stress test as long as the patient was agreeable. After explaining the test to the patient, he voiced his understanding and wishes to proceed with the Lexiscan.
[2022-08-30] MEDS: regadenoson 0.4 Mg/5 ml Syringe IVP (12:04)
[2022-08-30 12:40] VITALS: BP 114/60; PULSE 62
== END 2022-08-30 10:14 | disposition home or self-care (01) ==
LOC: CDL 10:14
PROVIDERS: PCP Family Medicine; Visit Provider Family Medicine
DX: R07.9 Chest pain, unspecified (principal)
CPT/HCPCS: 36415; 78452; 93017; 96374; A9500; J2785

== ENCOUNTER → 2023-04-17 15:16 | Outpatient (BNVA) | payer MEDICARE, OTHER, SELFPAY | PROVIDERS: PCP Family Medicine; Referring Provider Family Medicine; Visit Provider Internal Medicine Cardiovascular Disease | DX: R07.9 Chest pain, unspecified (principal); E78.00 Pure hypercholesterolemia, unspecified; I10 Essential (primary) hypertension; Z87.891 Personal history of nicotine dependence; R94.31 Abnormal electrocardiogram [ECG] [EKG] | CPT/HCPCS: 93005; 99204 ==

== ENCOUNTER 2023-04-22 10:12 | Emergency (ER) | payer MEDICARE, OTHER, SELFPAY ==
[2023-04-22 10:25] VITALS: BP 136/75; PULSE 57; RESP 18; TEMP 36.8; O2SAT 96; BMI 31.3
--- NOTE | 2023-04-22 11:02 | ECG_ITS ---
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 Measurements Intervals [place] Rate: 54 P: 30 NM: 185 QRS: 34 QRSD: 75 T: 64 QT: 444 QTc: 421 Interpretive Statements SINUS BRADYCARDIA Compared to ECG 04/17/2023 15:24:28 Sinus rhythm no longer present T-wave abnormality no longer present Possible ischemia no longer present Electronically Signed On 04-22-2023 18:26:50 AIRLINE LOUNGE RECEPTIONIST by Zurdo Marcelo M.D. [id number]
--- NOTE | 2023-04-22 11:02 | XRR_ITS ---
PROCEDURE INFORMATION: Exam: XR Chest Exam date and time: 04/22/2023 11:13 AM Age: 82 years old Clinical indication: Angina pectoris; Patient HX: Left shoulder pain; Additional info: Cp TECHNIQUE: Imaging protocol: Radiologic exam of the chest. Views: 1 view. COMPARISON: CT abdomen pelvis w con* [id number] 05/13/2021 1:19 PM FINDINGS: Lungs: Unremarkable. No consolidation. Pleural spaces: Unremarkable. No pleural effusion. No pneumothorax. Heart/Mediastinum: Unremarkable. No cardiomegaly. Bones/joints: Unremarkable. XR/XR chest 1V portable [id number] IMPRESSION: No acute findings.
--- NOTE | 2023-04-22 13:33 | W.ED.EXTPRO ---
HPI - Extremity Problem General: Chief complaint: Extremity Injury, Upper Stated complaint: left shoulder pain Time Seen by Provider: 04/22/23 12:12 Source: patient Mode of arrival: ambulatory Limitations: no limitations History of Present Illness: Patient is a nice 82-year-old male who presents to ED today along with family for evaluation of left shoulder pain. Patient states pain began 2 days ago. He states the day before pain started he was carrying some heavy buckets of feed and states he swung/emptied a bunch of buckets of ashes . He complains of pain to the left side of his neck with radiation into his left shoulder and into upper arm. Describes as a burning sensation. States that he will hold his arm over his head the pain fully goes away. He does not have any chest pain or shortness of breath. He has not noticed any redness or pallor to the extremity. Denies numbness, tingling, loss of sensation. He has not noticed any temperature changes to the arm. MD Complaint: extremity pain and joint pain Onset (ago): day(s) Pain Consistency: intermittent Location: left and upper extremity (shoulder/arm) Quality: burning Radiation: none Relieving factors: other (resting arm above head) Exacerbating factors: nothing Associated symptoms: Reports no associated symptoms; Deny chest pain or rash Review of Systems Card: Denies: chest pain, palpitations, irregular heart rhythm, edema, lightheadedness, syncope, pre-syncope or dyspnea on exertion Resp: Denies: dyspnea Musc: Reports: neck pain, extremity pain and joint pain; Denies: back pain, extremity swelling, joint swelling, joint redness, joint warmth, joint stiffness, limited range of motion, muscle cramps, muscle weakness, decrease in muscle mass, loss of height or deformity Skin/Breast: Denies: rash, pruritus or erythema Neuro: Denies: numbness in extremities, weakness in extremities or sensory changes PFS ED PFSH: Medical History 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 Gross hematuria Right carpal tunnel syndrome Hypertension GERD (gastroesophageal reflux disease) Hypercholesteremia Hx of diverticulitis of colon Surgical History H/O colonoscopy H/O right inguinal hernia repair Family History Father CAD (coronary artery disease) Mother CAD (coronary artery disease) Social History Smoking and tobacco/nicotine status: former use of tobacco/nicotine Alcohol intake: never Substance/Drug Use: never Adopted: No Household members: spouse Housing: House Marital status: Number of children: 3 Highest education level completed: High School Graduate Current occupational status: retired Pets and animals: Yes Current gender identity: Male Physical Exam Const: COMMON NORMALS: no acute distress, average body habitus, patient oriented x3, no limitations, healthy appearing, alert and well nourished Neck/C-Spine: COMMON NORMALS: full ROM, no lymphadenopathy, no meningeal signs and no JVD GENERAL: Yes normal visual inspection, No anterior neck swelling and No submandibular swelling CERVICAL SPINE: No Cervical spine tenderness, No step off deformity, No Paracervical muscle tenderness, No Paracervical spasm, No Trapezius muscle tenderness and No Lhermitte's sign positive OTHER: states he is not having much discomfort now Chest: COMMONS NORMALS: normal inspection of the chest and normal palpation of entire chest wall Resp: COMMON NORMALS: normal respiratory effort and clear to auscultation bilaterally AUSCULTATION: clear to auscultation bilaterally Cardio: COMMON NORMALS: no JVD and regular rhythm RATE: bradycardic RHYTHM: regular rhythm Back/Pelvis: COMMON NORMALS: thoracic and lumbar spine normal to inspection and no thoracic nor lumbar tenderness Extremity: COMMON NORMALS: normal to inspection, full ROM, capillary refill normal, no joint enlargement, no clubbing, cyanosis or edema, no calf tenderness and no pedal edema GENERAL: Yes normal exam except as noted LEFT UPPER EXTREMITY: Yes shoulder joint and Yes upper arm OTHER: LE is normal in appearance with intact sensation and pulses; states he is not having much discomfort currently; full ROM noted to extremity and this does not seem to overly exacerbate symptoms; does have some muscle tenderness to L medial edge of scapula Neuro: COMMON NORMALS: patient oriented x3, moves all extremities, no focal motor deficits and no sensory deficits noted SENSORIUM/ORIENTATION: Yes alert MENINGEAL SIGNS: Yes no meningeal signs Skin: COMMON NORMALS: no rashes or lesions noted GENERAL SKIN EXAM: no rashes or lesions noted Course Vital Signs: Vital signs: Vital Signs Temperature 98.2 F 04/22/23 10:25 Pulse Rate 61 04/22/23 14:00 Respiratory Rate 22 H 04/22/23 13:48 Blood Pressure 171/84 04/22/23 14:00 Pulse Oximetry 97 04/22/23 14:00 Oxygen Delivery Me thod Room Air 04/22/23 14:00 MDM - Extremity (Nontraumatic) Medical Decision Making DDx includes cervical radiculopathy, musculoskeletal sprain/strain, shoulder impingement. Patient was given IM pain medications, steroids, muscle relaxers and on re-examination states he feels much better and is no longer having any discomfort. Will place him on steroids and muscle relaxers at home. He has a diclofenac topical gel he can use as needed. Discussed mixing this with topical lidocaine cream. Recommend follow-up with primary care next week if symptoms do not seem to improve. CXR and EKG were ordered from the waiting room and unremarkable. Medical Records I reviewed the patient's medical records. Lab Data Radiology Impressions Chest X-Ray 04/22/23 11:02 IMPRESSION: No acute findings. All radiology interpretation(s) finalized by discharge Discharge Plan Discharge Patient Disposition: Home Clinical Impression: Neuralgia of left upper extremity Condition: Stable Prescriptions: New methocarbamol 500 mg tablet 1,000 mg PO Q8H Qty: 30 0RF prednisone 10 mg tablet 10 mg PO DAILY 7 Days Qty: 21 0RF Rx Instructions: 5 tabs on days 1-2, 4 tabs on days 3, 3 tabs on day 4, 2 tabs on day 5, 1 tabs on days 6-7 No Action citalopram [Celexa] 20 mg tablet 20 mg PO DAILY metoprolol tartrate 100 mg tablet 100 mg PO BID lisinopril-hydrochlorothiazide 20-25 mg tablet 1 tab PO DAILY glucosamine-chondroitin 900 mg tablet 900 mg PO DAILY amlodipine 2.5 mg tablet 2.5 mg PO DAILY 30 Days Qty: 30 5RF simvastatin 20 mg Tablet 20 mg PO BEDTIME aspirin 81 mg Tablet,Delayed Release (Dr/Ec) 81 mg PO DAILY PreserVision AREDS-2 250-90-40-1 mg Capsule 1 tab PO BID omeprazole 20 mg capsule,delayed release(DR/EC) 20 mg PO BID Qty: 0 0RF Discharge Orders: Discharge ED (Routine); Ordered 04/22/23 Ordered By: Elva Ellis Referrals: Adi Walters MD [Primary Care Provider] - Activity Restrictions/Additional Instructions: As we discussed please follow-up with your primary care provider next week sometime if symptoms do not seem to be improving. Coding Level of Care Code ED Associate Professor Of Economics for Larissa Zavala
[2023-04-22 13:48] VITALS: RESP 22
[2023-04-22] MEDS: morphine 4 mg/mL SDV 1 mL IM (13:48)
[2023-04-22] MEDS: dexamethasone 10 mg/mL INJ 8 MG IM (13:50)
[2023-04-22] MEDS: orphenadrine 30 mg/mL Inj 2 mL 60 MG IM (13:52)
[2023-04-22 14:00] VITALS: BP 171/84; PULSE 61; O2SAT 97
== END 2023-04-22 14:39 | disposition home or self-care (01) ==
PROVIDERS: Emergency Provider Physician Assistant; PCP Family Medicine
DX: G58.8 Other specified mononeuropathies (principal); Z79.82 Long term (current) use of aspirin; Z87.891 Personal history of nicotine dependence; I10 Essential (primary) hypertension
CPT/HCPCS: 71045; 93005; 96372; 99284; J1100; J2270; J2360

== ENCOUNTER 2023-04-25 11:38 | Outpatient (CLI) | payer MEDICARE, OTHER, SELFPAY ==
--- NOTE | 2023-04-25 12:15 | USCV_ITS ---
Joe Nowak Age: 82 Gender: M : 1940 Exam Date: 04/25/2023 12:18 Ordering Phys: Zurdo Marcelo MD ([email or web address]) Technologist: CT [place] [facility] [place]: cp BP: 182 / 84 HR: Rhythm: Sinus Technical Quality: Adequate MEASUREMENTS (Male / Female) Normal Values 2D ECHO LVOT Diameter 2.1 cm LV Ejection Fraction MOD 2C 56.3 % LV Ejection Fraction 2C AL 57.2 % LA Diameter 3.6 cm RA Systolic Volume 4C AL 49.0 ml RA Systolic Volume 4C MOD 46.3 ml Aorta at Sinotubular Diameter 3.4 cm IVC Diameter 1.3 cm M-MODE LA Ao Ratio MM 1.3 AV Cusp Separation MM 1.3 cm DOPPLER AV Peak Velocity 240.5 cm/s AV Area Cont Eq vti 1.7 cm squared AV Area Cont Eq pk 1.5 cm squared MV Peak Velocity 119.0 cm/s MV Area PHT 2.9 cm squared Mitral E to A Ratio 1.1 TV Peak Velocity 148.0 cm/s TR Peak Velocity 160.0 cm/s TR Peak Gradient 10.2 mmHg TV Peak E Velocity 149.0 cm/s Right Atrial Pressure 3.0 mmHg Pulmonary Artery Systolic Pressu 13.2 mmHg PV Peak Velocity 124.0 cm/s FINDINGS Left Ventricle Normal left ventricular size and systolic function, EF 56%. No regional wall motion abnormalities. Grade I/IV diastolic dysfunction (abnormal relaxation filling pattern), normal to mildly elevated filling pressures. Mild left ventricular hypertrophy. Right Ventricle The right ventricle is normal in size and function. Right Atrium The right atrium is normal in size. Left Atrium The left atrium is normal in size. Mitral Valve Mild mitral annular calcification. Trace to mild mitral valve regurgitation. Aortic Valve Mild aortic valve stenosis, mean gradient 13.7 mmHg, MAXIMO 1.7 cm squared. Tricuspid Valve No gross abnormalities noted Pulmonic Valve Pulmonic valve not well visualized. Mild pulmonary valve regurgitation. Pericardium No pericardial effusion. Aorta Normal ascending aorta dimension. IVC Normal inferior vena cava. CONCLUSIONS Normal left ventricular size and systolic function, EF 56%. No regional wall motion abnormalities. Grade I/IV diastolic dysfunction (abnormal relaxation filling pattern), normal to mildly elevated filling pressures. Mild left ventricular hypertrophy. Mild mitral annular calcification. Trace to mild mitral valve regurgitation. Mild aortic valve stenosis, mean gradient 13.7 mmHg, MAXIMO 1.7 cm squared. Mild pulmonary valve regurgitation. There is no pericardial effusion. There are no intracardiac masses. No similar previous studies are available for comparison Dr Zurdo Marcelo MD [facility] (Electronically Signed) Final Date: 27 April 2023 20:08 S
== END 2023-04-25 11:39 | disposition home or self-care (01) ==
PROVIDERS: PCP Family Medicine; Visit Provider Internal Medicine Cardiovascular Disease
DX: I08.8 Other rheumatic multiple valve diseases (principal)
CPT/HCPCS: 93306

== ENCOUNTER 2023-05-05 06:00 | Outpatient (RCR) | payer MEDICARE, OTHER, SELFPAY | END 2023-05-18 23:59 | disposition home or self-care (01) | LOC: APT 06:00 | PROVIDERS: Visit Provider Family Medicine | DX: M54.50 Low back pain, unspecified (principal) | CPT/HCPCS: 97110; 97161 ==

== ENCOUNTER 2023-05-19 06:00 | Outpatient (RCR) | payer MEDICARE, OTHER, SELFPAY | END 2023-06-17 23:59 | disposition home or self-care (01) | LOC: APT 06:00 | PROVIDERS: Visit Provider Family Medicine | DX: M54.50 Low back pain, unspecified (principal) | CPT/HCPCS: 97110 ==

== ENCOUNTER → 2023-08-11 08:55 | Outpatient (BNVA) | payer MEDICARE, OTHER, SELFPAY | PROVIDERS: Visit Provider Nurse Practitioner Family | DX: I10 Essential (primary) hypertension (principal); Z87.898 Personal history of other specified conditions; Z87.891 Personal history of nicotine dependence | CPT/HCPCS: 99214 ==

== ENCOUNTER → 2023-09-15 07:49 | Outpatient (BNVA) | payer MEDICARE, OTHER, SELFPAY | PROVIDERS: Visit Provider Nurse Practitioner Family | DX: L57.0 Actinic keratosis (principal); L57.8 Other skin changes due to chronic exposure to nonionizing radiation; L81.4 Other melanin hyperpigmentation; D18.01 Hemangioma of skin and subcutaneous tissue; L82.1 Other seborrheic keratosis | CPT/HCPCS: 17004; 99203 ==

== ENCOUNTER → 2023-12-31 10:58 | Outpatient (BNVA) | payer MEDICARE, OTHER, SELFPAY | PROVIDERS: PCP Family Medicine; Visit Provider Clinical Nurse Specialist Adult Health | DX: N39.0 Urinary tract infection, site not specified (principal) | CPT/HCPCS: 81000 ==

== ENCOUNTER 2024-01-05 12:10 | Outpatient (CLI) | payer MEDICARE, OTHER, SELFPAY ==
--- NOTE | 2024-01-05 12:16 | XR_ITS ---
WS: [id number] Exam: XR lumbar spine f/e only [id number] Date/Time of Exam: 01/05/2024 12:36 PM Reason For Exam: VERTEBROGENIC LOW BACK PAIN Very slight degenerative anterolisthesis of L4 on L5 which is unchanged in flexion and extension. No other sign of flexion or extension instability. Mild spondylosis. Facet arthropathy at all levels. De generative vacuum disc at L5-S1. Also moderate degenerative narrowing of the L2-3 disc. XR/XR lumbar spine f/e only [id number] IMPRESSION: 1. Very slight degenerative anterolisthesis of L4 on L5 which does not change d uring flexion or extension. No other sign of instability. 2. Degenerative changes as detailed above.
== END 2024-01-05 12:11 | disposition home or self-care (01) ==
LOC: RAD 12:12
PROVIDERS: PCP Family Medicine; Visit Provider Nurse Practitioner
DX: M51.360 Other intervertebral disc degeneration, lumbar region with discogenic back pain only (principal); M99.63 Osseous and subluxation stenosis of intervertebral foramina of lumbar region
CPT/HCPCS: 72120

== ENCOUNTER → 2024-03-15 12:40 | Outpatient (BNVA) | payer MEDICARE, OTHER, SELFPAY | PROVIDERS: PCP Family Medicine; Visit Provider Nurse Practitioner Family | DX: L57.8 Other skin changes due to chronic exposure to nonionizing radiation (principal); L81.4 Other melanin hyperpigmentation; L57.0 Actinic keratosis | CPT/HCPCS: 17000; 99213 ==

== ENCOUNTER 2024-04-27 15:03 | Outpatient (CLI) | payer MEDICARE, OTHER, SELFPAY ==
--- NOTE | 2024-04-27 15:14 | USCV_ITS ---
Joe Nowak Age: 83 Gender: M : 1940 Exam Date: 04/27/2024 15:23 Ordering Phys: Roberto Chowdhury MD Technologist: [facility]R [place] [facility] [place]: pre op eval Risk Factors: Previous Vascular Surgery: Right Brachial BP: / Left Brachial BP: / Right Left Velocity (cm/s) Spectral Plaque Velocity (cm/s) Spectral Plaque Syst/Diast Broadening Syst/Diast Broadening 121.60/15.70 Prox CCA 110.30/ 11.00 127.00/13.90 Mid CCA 127.10/ 19.20 106.10/11.80 Distal CCA 134.20/ 17.70 61.10/ 12.30 Prox ICA 86.90 / 14.40 45.90/ 8.70 Mid ICA / 69.50/ 14.50 Distal ICA / 140.40 ECA 92.10 0.60 ICA/CCA 0.60 Antegrade Vertebral Antegrade 58.10/ 11.50 cm/s 76.10/ 9.20 cm/s Tri Subclavian Tri 120.9 129.0 0 0 CONCLUSIONS Right ICA stenosis <50%. Left CCA and prox ICA are patent. No flow in the mid and distal ICA. Recommend CTA in further evaluation. No prior comparisons. Normal antegrade Doppler flow noted in the right vertebral artery. Normal antegrade Doppler flow noted in the left vertebral artery. Alex Pires MD (Electronically Signed) Final Date: 27 April 2024 16:06 S
== END 2024-04-27 15:04 | disposition home or self-care (01) ==
LOC: RAD 15:06
PROVIDERS: PCP Family Medicine; Visit Provider Neurological Surgery
DX: Z01.818 Encounter for other preprocedural examination (principal); I65.21 Occlusion and stenosis of right carotid artery
CPT/HCPCS: 93880

== ENCOUNTER 2024-05-04 14:13 | Outpatient (CLI) | payer MEDICARE, OTHER, SELFPAY ==
--- NOTE | 2024-05-04 14:23 | XR_ITS ---
WS: [id number] DEXA (DUAL ENERGY X-RAY ABSORPTIOMETRY) Bone mineral density was performed using a [employer] machine. HISTORY: AGE RELATED BONE LOSS COMPARISON: None available. Lumbar spine BMD (L1-L4): 1.239 g/cm2 T score: 0.2 Z score: 0.7 Total hip BMD: Left: 0.854 g/cm2. T score: -1.7 Z score: -0.7 Right: 0.848 g/cm2. T score: -1.8 Z score: -0.7 10 year probability of a major osteoporotic fracture is 14.0%. XR/XR DEXA axial skeleton* [id number] IMPRESSION: OSTEOPENIA. Male patient.
== END 2024-05-04 14:14 | disposition home or self-care (01) ==
LOC: RAD 14:16
PROVIDERS: PCP Family Medicine; Visit Provider Neurological Surgery
DX: M85.80 Other specified disorders of bone density and structure, unspecified site (principal)
CPT/HCPCS: 77080

== ENCOUNTER 2024-06-01 10:59 | Emergency (ER) | payer MEDICARE, OTHER, SELFPAY ==
--- NOTE | 2024-06-01 10:59 | XRR_ITS ---
PROCEDURE INFORMATION: Exam: XR Chest Exam date and time: 06/01/2024 11:21 AM Age: 83 years old Clinical indication: Pain; Chest pressure; Additional info: Cp TECHNIQUE: Imaging protocol: Radiologic exam of the chest. Views: 1 view. COMPARISON: CR XR chest 1V portable [id number] 04/22/2023 11:13 AM FINDINGS: Lungs: Suboptimal pulmonary expansion with associated accentuation of bronchovascular markings. No acute pulmonary pathology given technique. Pleural spaces: No pleural effusion. Heart/Mediastinum: Cardiomediastinal contours unremarkable given technique. Bones/joints: No significant pathology. XR/XR chest 1V portable [id number] IMPRESSION: No acute pathology or significant interval change given technique.
[2024-06-01 11:04] VITALS: BP 155/97; PULSE 65; RESP 17; TEMP 36.6; O2SAT 99; BMI 30.7
--- NOTE | 2024-06-01 11:07 | ECG_ITS ---
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 Measurements Intervals [place] Rate: 64 P: 56 CA: 180 QRS: 63 QRSD: 83 T: 38 QT: 408 QTc: 424 Interpretive Statements SINUS RHYTHM Compared to ECG 04/22/2023 10:27:33 Sinus bradycardia no longer present Electronically Signed On 06-02-2024 21:35:20 CDT by Zurdo Marcelo M.D. [email or web address] [email or web address]
--- NOTE | 2024-06-01 11:26 | W.ED.CHESTPA ---
HPI - Chest Pain General: Chief Complaint: Chest Pain Stated Complaint: chest pain Time Seen by Provider: 06/01/24 11:14 Source: patient Mode of arrival: ambulatory Limitations: no limitations History of Present Illness: 83-year-old male who states that he woke up this morning with some chest pain states it is a pressure type pain in the center of his chest he rated a 5 out of 10 he states it is since resolved he is currently pain-free he denies any nausea or diaphoresis no history of heart disease he denies any worse improving factors. Associated symptoms: Deny abdominal pain, dyspnea, fever(s), nausea or vomiting Related Data Home Medications ?Medication ?Instructions ?Recorded ?Confirmed antiarthritic combination no.2 900 900 mg PO DAILY 09/07/19 06/01/24 mg tablet (glucosamine-chondroitin) citalopram 20 mg tablet (Celexa) 20 mg PO DAILY 09/07/19 06/01/24 lisinopril 20 1 tab PO DAILY 09/07/19 06/01/24 mg-hydrochlorothiazide 25 mg tablet metoprolol tartrate 100 mg tablet 100 mg PO BID 09/07/19 06/01/24 simvastatin 20 mg tablet 20 mg PO BEDTIME 01/19/20 06/01/24 aspirin 81 mg tablet,delayed 81 mg PO DAILY 08/14/20 06/01/24 release vit C 250 mg-vit E 90 mg-zinc 40 1 tab PO BID 08/14/20 06/01/24 mg-copper 1 [id number]-hdrcyu capsule (PreserVision AREDS-2) levothyroxine 50 mcg tablet 50 mcg PO QAM 04/22/23 06/01/24 Previous Rx's ?Medication ?Instructions ?Recorded omeprazole 20 mg capsule,delayed 20 mg PO BID #0 caps 08/14/20 release Allergies Allergy/AdvReac Type Severity Reaction Status Date / Time amlodipine AdvReac Severe ADR-Fatigue Verified 05/07/24 11:47 d Review of Systems Const: Denies: fever(s), chills, body aches or change in appetite ENMT: Denies: throat pain or dental pain Card: Reports: chest pain Resp: Denies: dyspnea GI: Denies: abdominal pain, nausea, vomiting or diarrhea Musc: Denies: neck pain or back pain Skin/Breast: Denies: rash Neuro: Denies: headache(s) [facility] ED PFSH: Medical History 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 Gross hematuria Right carpal tunnel syndrome Hypertension GERD (gastroesophageal reflux disease) Hypercholesteremia Hx of diverticulitis of colon Surgical History H/O colonoscopy H/O right inguinal hernia repair Family History Father CAD (coronary artery disease) Mother CAD (coronary artery disease) Social History Smoking and tobacco/nicotine status: former use of tobacco/nicotine Alcohol intake: never Substance/Drug Use: never Adopted: No Household members: spouse Housing: House Marital status: Number of children: 3 Highest education level completed: High School Graduate Current occupational status: retired Pets and animals: Yes Current gender identity: Male Physical Exam Const: COMMON NORMALS: no acute distress, patient oriented x3 and healthy appearing HENMT: COMMON NORMALS: normocephalic and atraumatic HEAD & SCALP: normocephalic and atraumatic Eye: COMMON NORMALS: conjunctivae normal CONJUNCTIVA: Yes conjunctivae normal Neck/C-Spine: COMMON NORMALS: full ROM and supple Chest: COMMONS NORMALS: normal inspection of the chest and normal palpation of entire chest wall Resp: COMMON NORMALS: normal respiratory effort, No retractions, No use of accessory muscles and clear to auscultation bilaterally AUSCULTATION: clear to auscultation bilaterally Cardio: COMMON NORMALS: regular rate, regular rhythm and No murmurs present (Cardio) RATE: regular rate RHYTHM: regular rhythm GI: COMMON NORMALS: Normal to inspection, nondistended, normoactive bowel sounds present, Soft to palpation, non-tender and no masses PALPATION: Yes Soft to palpation Extremity: COMMON NORMALS: normal to inspection and full ROM Neuro: COMMON NORMALS: patient oriented x3, moves all extremities and no focal motor deficits Psych: COMMON NORMALS: mental status grossly normal, Normal thought process present and cooperative THOUGHT PROCESS: Normal thought process present Skin: COMMON NORMALS: no rashes or lesions noted and no wounds GENERAL SKIN EXAM: no rashes or lesions noted Course Vital Signs: Vital signs: Vital Signs Temperature 98 F 06/01/24 11:04 Pulse Rate 62 06/01/24 13:00 Respiratory Rate 18 06/01/24 12:11 Blood Pressure 149/71 06/01/24 13:00 Pulse Oximetry 96 06/01/24 13:00 Oxygen Delivery Me thod Room Air 06/01/24 13:00 MDM - Chest Pain Medical Decision Making Patient presents for chest pain is atypical in nature initial repeat troponin here negative he states he was running a chainsaw yesterday could be muscular CTA was normal he stable for discharge follow-up with PCP return if worsening. Medical Records I reviewed the patient's medical records. Lab Data I reviewed the patient's lab results. 06/01/24 11:30 06/01/24 11:30 Radiology Impressions Chest X-Ray 06/01/24 10:59 IMPRESSION: No acute pathology or significant interval change given technique. Chest CTA 06/01/24 11:59 IMPRESSION: 1. No pulmonary embolism. 2. No pneumonia. 3. Mild LEFT heart enlargement. No RIGHT heart strain. 4. Marked distention of the stomach with fluid. Laboratory Results WBC 9.26 10^3/uL (3.29-11.43) 06/01/24 11:30 RBC 4.96 10^6/uL (3.85-5.65) 06/01/24 11:30 Hgb 14.80 g/dL (11.27-16.99) 06/01/24 11:30 Hct 44.0 % (37-53) 06/01/24 11:30 MCV 88.7 fl (82-101) 06/01/24 11:30 MCH 29.8 pg (27-33) 06/01/24 11:30 MCHC 33.6 g/dL (30-55) 06/01/24 11:30 RDW 12.6 % (12.1-15.1) 06/01/24 11:30 Plt Count 194 10^3/cmm (157-399) 06/01/24 11:30 MPV 9.2 fL (7.4-10.4) 06/01/24 11:30 Neut % (Auto) 81.6 % 06/01/24 11:30 Lymph % (Auto) 11.4 % 06/01/24 11:30 Kane % (Auto) 5.2 % 06/01/24 11:30 Eos % (Auto) 1.0 % 06/01/24 11:30 Baso % (Auto) 0.6 % 06/01/24 11:30 Neut # (Auto) 7.55 10^3/uL (1.8-7.7) 06/01/24 11:30 Lymph # (Auto) 1.1 10^3/uL (0.8-4.8) 06/01/24 11:30 Kane # (Auto) 0.5 10^3/uL (0.2-0.9) 06/01/24 11:30 Eos # (Auto) 0.1 10^3/uL (0.0-0.8) 06/01/24 11:30 Baso # (Auto) 0.1 10^3/uL (0.0-0.1) 06/01/24 11: Nucleated RBC % (auto) 0 % 06/01/24 11: Nucleated RBCs # 0.0 /100WBC 06/01/24 11:30 Sodium 138 mmol/L (136-145) 06/01/24 11:30 Potassium 4.4 mmol/L (3.5-5.1) 06/01/24 11: Chloride 100 mmol/L (98-107) 06/01/24 11: Carbon Dioxide 25 mmol/L (22-29) 06/01/24 11:30 Anion Gap 17.4 (5-19) 06/01/24 11:30 BUN 18 mg/dL (8-23) 06/01/24 11:30 Creatinine 0.8 mg/dL (0.7-1.2) 06/01/24 11:30 GFR Calculation Not Reportable 06/01/24 11:30 Glucose 126 mg/dL (65-115) H 06/01/24 11:30 Calculated Osmolality 289 mOsm/kg (285-295) 06/01/24 11:30 Calcium 9.5 mg/dL (8.5-10.5) 06/01/24 11:30 Total Bilirubin 0.5 mg/dL (0.15-1.2) 06/01/24 11: AST 19 U/L (0-40) 06/01/24 11:30 ALT 15 U/L (0-41) 06/01/24 11:30 Alkaline Phosphatase 64 U/L (40-130) 06/01/24 11:30 Troponin T Baseline 13 ng/L (0-15) 06/01/24 11:30 Troponin T 120 Minute 13.82 ng/L (0-15) 06/01/24 13:06 Delta Troponin T 0.82 ABS# (0-10) 06/01/24 13:06 Total Protein 6.7 g/dL (6.6-8.7) 06/01/24 11:30 Albumin 4.0 g/dL (3.5-5.2) 06/01/24 11:30 Globulin 2.7 g/dL (1.3-4.6) 06/01/24 11:30 Lipase 16 U/L (13-60) 06/01/24 11:30 All radiology interpretation(s) finalized by discharge EKG Data EKG 1: I personally reviewed and interpreted this EKG as follows: EKG interpretation date: 06/01/24 EKG interpretation time: 11:07 Interpretation: nsr hr [address] elevation qrs 83 qtc 418 EKG 2: I personally reviewed and interpreted this EKG as follows: EKG interpretation date: 06/01/24 EKG interpretation time: 13:04 Interpretation: nsr hr [address] elevation qrs 80 qtc 439 Discharge Plan Discharge Patient Disposition: Home Clinical Impression: Chest pain Qualifiers: Chest pain type: other chest pain Qualified Code(s): R07.89 - Other chest pain Condition: Stable Prescriptions: No Action citalopram [Celexa] 20 mg tablet 20 mg PO DAILY metoprolol tartrate 100 mg tablet 100 mg PO BID lisinopril-hydrochlorothiazide 20-25 mg tablet 1 tab PO DAILY glucosamine-chondroitin 900 mg tablet 900 mg PO DAILY simvastatin 20 mg Tablet 20 mg PO BEDTIME aspirin 81 mg Tablet,Delayed Release (Dr/Ec) 81 mg PO DAILY PreserVision AREDS-2 250-90-40-1 mg Capsule 1 tab PO BID omeprazole 20 mg capsule,delayed release(DR/EC) 20 mg PO BID Qty: 0 0RF levothyroxine 50 mcg tablet 50 mcg PO QAM Discharge Orders: Discharge ED (Routine); Ordered 06/01/24 Ordered By: Rachel Chan Referrals: Adi Walters MD [Primary Care Provider] - 4-7 days Discharge Diet: Advance as tolerated Discharge Activity: Resume usual activity Patient Instructions: Chest Pain (ED) Print Language: Kiswahili Coding Level of Care Code ED Electrical Journeyman for Larissa Zavala
[2024-06-01 11:35] LABS: Basophils # 0.1 10^3/uL (0.0-0.1); Basophils % 0.6 %; Eosinophils # 0.1 10^3/uL (0.0-0.8); Lymphocytes # 1.1 10^3/uL (0.8-4.8); Lymphocytes % 11.4 %; Mean Corpuscular HGB Conc 33.6 g/dL (30-55); Mean Corpuscular Hemoglobin 29.8 pg (27-33); Mean Corpuscular Volume 88.7 fl (82-101); Mean Platelet Volume 9.2 fL (7.4-10.4); Monocytes # 0.5 10^3/uL (0.2-0.9); Monocytes % 5.2 %; Neutrophils # 7.55 10^3/uL (1.8-7.7); Neutrophils % 81.6 %; Nucleated Red Blood Cells % 0 %; Platelet Count 194 10^3/cmm (157-399); Red Blood Count 4.96 10^6/uL (3.85-5.65); Red Cell Distribution Width 12.6 % (12.1-15.1); White Blood Count 9.26 10^3/uL (3.29-11.43)
[2024-06-01] MEDS: aspirin 81 mg Chew Tablet 324 MG PO (11:36)
[2024-06-01 11:37] VITALS: BP 158/75; PULSE 65; RESP 18; O2SAT 95
[2024-06-01 11:43] VITALS: PULSE 66; RESP 16; O2SAT 93
[2024-06-01 11:56] LABS: Troponin(5th) Baseline 13 ng/L (0-15)
--- NOTE | 2024-06-01 11:59 | CT_ITS ---
WS: [id number] CT CHEST ANGIOGRAPHY WITH REFORMATS HISTORY: cp TECHNIQUE: Contiguous axial images are obtained through the chest during arterial injection of intravenous contrast. Images are reconstructed to evaluate the pulmonary arteries. MIP imaging also reviewed. All CT scans at [facility] use at least one of these dose optimization techniques: automated exposure control; mA and/or kV adjustment per patient size (includes targeted exams where dose is matched to clinical indication); or iterative reconstruction. CONTRAST: Omnipaque 350; 100 mL IV. DLP: 425.37 mGy.cm COMPARISON: 09/29/2006 Good opacification of the pulmonary arteries. No filling defects or pulmonary emboli. No RIGHT heart strain. Mild LEFT heart enlargement. Ectasia and moderate atherosclerosis aorta. Ascending aorta 3.7 cm in diameter. No pericardial or pleural effusions. No RIGHT heart strain. No mediastinal or hilar adenopathy. No pneumonia. There are few small calcified granulomata. No mass. Small hiatal hernia. Suprarenal aortic calcifications. Marked distention of the stomach with fluid. Diverticular disease is noted within the visualized transverse colon. No adrenal mass. No destructive bone lesions. CT/CT angio chest PE protcl [id number] IMPRESSION: 1. No pulmonary embolism. 2. No pneumonia. 3. Mild LEFT heart enlargement. No RIGHT heart strain. 4. Marked distention of the stomach with fluid.
[2024-06-01 12:11] VITALS: BP 138/76; PULSE 63; RESP 18; O2SAT 94
[2024-06-01 12:18] LABS: Alanine Aminotransferase 15 U/L (0-41); Alkaline Phosphatase 64 U/L (40-130); Aspartate Amino Transferase 19 U/L (0-40); Blood Urea Nitrogen 18 mg/dL (8-23); Calcium 9.5 mg/dL (8.5-10.5); Carbon Dioxide 25 mmol/L (22-29); Chloride 100 mmol/L (98-107); Creatinine Clr Calc Pharmacy 74.5215; Globulin 2.7 g/dL (1.3-4.6); Glucose 126 mg/dL (65-115); Lipase 16 U/L (13-60); Osmolality Calculated 289 mOsm/kg (285-295); Sodium 138 mmol/L (136-145); Total Bilirubin 0.5 mg/dL (0.15-1.2); Total Protein 6.7 g/dL (6.6-8.7)
[2024-06-01 12:22] LABS: Anion Gap 17.4 (5-19); Potassium 4.4 mmol/L (3.5-5.1)
--- NOTE | 2024-06-01 12:59 | ECG_ITS ---
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 Measurements Intervals Gallagher Rate: 62 P: 108 NM: 185 QRS: 102 QRSD: 80 T: 75 QT: 434 QTc: 442 Interpretive Statements SINUS RHYTHM WITH OCCASIONAL SUPRAVENTRICULAR PREMATURE COMPLEXES RIGHT AXIS DEVIATION [QRS AXIS > 100] Compared to ECG 06/01/2024 11:07:57 Right-axis deviation now present Electronically Signed On 06-02-2024 21:49:44 CDT by Zurdo Marcelo M.D. [email or web address]
[2024-06-01 13:00] VITALS: BP 149/71; PULSE 62; O2SAT 96
[2024-06-01 13:39] LABS: Troponin 5 2HR 13.82 ng/L (0-15); Troponin 5 2HR Delta 0.82 ABS# (0-10)
[2024-06-01 14:26] VITALS: BP 171/88; PULSE 62; O2SAT 94
== END 2024-06-01 14:27 | disposition home or self-care (01) ==
PROVIDERS: Emergency Provider Emergency Medicine; PCP Family Medicine
DX: R07.89 Other chest pain (principal); Z79.82 Long term (current) use of aspirin; Z87.891 Personal history of nicotine dependence; I10 Essential (primary) hypertension
CPT/HCPCS: 36415; 71045; 71275; 80053; 83690; 84484; 85025; 93005; 99285; J9999

== ENCOUNTER 2024-06-08 12:10 | Outpatient (CLI) | payer MEDICARE, OTHER, SELFPAY ==
--- NOTE | 2024-06-08 12:20 | CT_ITS ---
WS: [id number] CTA HEAD AND NECK TECHNIQUE: Contrast enhanced CTA of the head and neck with coronal and sagittal reformatted images and maximum intensity projection (MIP) images. NASCET criteria utilized. CLINICAL INFORMATION: CAROTID STENOSIS COMPARISON: Ultrasound 04/27/2024 DLP: 1253.[address] scans at [facility] use at least one of these dose optimization techniques: automated exposure control; mA and/or kV adjustment per patient size (includes targeted exams where dose is matched to clinical indication); or iterative reconstruction. FINDINGS: Images degraded due to beam hardening artifact from cochlear implants. RIGHT: RIGHT common carotid artery is patent. Moderate atheromatous plaque RIGHT carotid bulb. No significant RIGHT ICA stenosis. RIGHT ICA is patent to the skull base. LEFT: LEFT common carotid artery is patent. Mild atheromatous plaque LEFT carotid bulb. LEFT ICA remains patent to the skull base of normal caliber. INTRACRANIAL CTA: Codominant and patent vertebral arteries bilaterally. Proximal basilar artery is patent. Patent LEFT posterior communicating artery. Normal vascularity to the COACH BUILDER territory bilaterally. Both ICAs are patent at the skull base. Cavernous carotid calcification. Normal vascularity to the DAVID and MCA territories bilaterally. No evidence of proximal flow-limiting stenosis. Low-attenuation soft tissue or secretions/cyst in the LEFT posterior nasopharynx fossa of Rosenmuller. Recommend direct visualization. Moderate spondylitic changes cervical spine. CT/CT angio headneck* [id number] IMPRESSION: 1. LEFT ICA is patent to the skull base. No significant LEFT ICA stenosis. Fin dings on ultrasound likely due to LEFT ICA depth and tortuosity 2. No significant RIGHT ICA stenosis. 3. Codominant and patent vertebral arteries bilaterally. 4. Unremarkable intracranial CTA. 5. Low-attenuation soft tissue or cyst in the LEFT fossa of Rosenmuller with p eripheral enhancement. Recommend direct visualization. Opacification of the LEF T mastoid air cells.
[2024-06-08] MEDS: iohexol 350 mg/mL 500 mL Btl (per mL) IV (13:05)
== END 2024-06-08 12:11 | disposition home or self-care (01) ==
LOC: RAD 12:13
PROVIDERS: PCP Family Medicine; Visit Provider Student in an Organized Health Care Education/Training Program
DX: I65.23 Occlusion and stenosis of bilateral carotid arteries (principal); R93.0 Abnormal findings on diagnostic imaging of skull and head, not elsewhere classified; H74.8X2 Other specified disorders of left middle ear and mastoid; Z96.89 Presence of other specified functional implants; M47.892 Other spondylosis, cervical region
CPT/HCPCS: 70496; 70498

== ENCOUNTER → 2024-07-07 14:06 | Outpatient (BNVA) | payer MEDICARE, OTHER, SELFPAY | PROVIDERS: PCP Family Medicine; Visit Provider Internal Medicine Cardiovascular Disease | DX: I10 Essential (primary) hypertension (principal); E78.00 Pure hypercholesterolemia, unspecified; Z79.82 Long term (current) use of aspirin; Z87.891 Personal history of nicotine dependence | CPT/HCPCS: 99214 ==

== ENCOUNTER 2024-07-08 06:56 | Outpatient (CLI) | payer MEDICARE, OTHER, SELFPAY ==
[2024-07-08 08:17] LABS: Blood Urea Nitrogen 15 mg/dL (8-23); Calcium 9.2 mg/dL (8.5-10.5); Carbon Dioxide 28 mmol/L (22-29); Chloride 100 mmol/L (98-107); Glucose 102 mg/dL (65-115); Osmolality Calculated 283 mOsm/kg (285-295); Sodium 136 mmol/L (136-145)
[2024-07-08 08:19] LABS: Anion Gap 12.4 (5-19); Potassium 4.4 mmol/L (3.5-5.1)
== END 2024-07-08 06:57 | disposition home or self-care (01) ==
LOC: LAB 06:59
PROVIDERS: PCP Family Medicine; Visit Provider Neurological Surgery
DX: E87.1 Hypo-osmolality and hyponatremia (principal)
CPT/HCPCS: 36415; 80048

== ENCOUNTER 2024-07-14 18:58 | Inpatient (IN) | payer MEDICARE, OTHER, SELFPAY ==
[2024-07-14 19:17] VITALS: PULSE 80; RESP 16; TEMP 37.5; O2SAT 92
--- NOTE | 2024-07-14 19:19 | XRR_ITS ---
PROCEDURE INFORMATION: Exam: XR Chest Exam date and time: 07/14/2024 10:15 PM Age: 83 years old Clinical indication: Fever TECHNIQUE: Imaging protocol: Radiologic exam of the chest. Views: 1 view. COMPARISON: CT angio chest PE prot [id number] 06/01/2024 12:45 PM FINDINGS: Lungs: Bibasilar reticular opacities that might represent atelectasis versus infiltrates. No focal consolidation. Pleural spaces: Unremarkable. No pleural effusion. No pneumothorax. Heart/Mediastinum: Unremarkable. No cardiomegaly. Vasculature: There are aortic arch calcifications. There is unfolding of the thoracic aorta. Bones/joints: Moderate degenerative disease of bilateral acromioclavicular joints. XR/XR chest 1V portable [id number] IMPRESSION: Bibasilar reticular opacities that might represent atelectasis versus infiltrates.
[2024-07-14 20:31] LABS: Bilirubin Urine Negative (Negative); Blood Urine Negative (Negative); Glucose Urine UA Negative (Normal); Ketones Urine Negative (Negative); Leukocyte Esterase Urine Negative (Negative); Nitrate Urine Negative (Negative); Protein Urine Negative (Negative); Specific Gravity, Urine 1.012 (1.005-1.030); Urine Appearance Clear (CLEAR); Urine Color Yellow (Yellow); Urobilinogen Urine 0.2 mg/dL (Negative); pH Urine 5.5 (5-7)
[2024-07-14 20:36] LABS: Bacteria Urine None Seen /hpf; Hyaline Casts Urine 1.21 /lpf; RBC Urine 0-2 /hpf (0-2); Squamous Epithelial Cell Urine 0-5 /hpf (0-5); WBC Urine 0-5 /hpf (0-5)
[2024-07-14 21:00] LABS: Erythrocyte Sedimentation Rate 9 mm/hr (0-10)
[2024-07-14 21:01] LABS: Basophils # 0.1 10^3/uL (0.0-0.1); Basophils % 0.5 %; Eosinophils # 0.2 10^3/uL (0.0-0.8); Eosinophils % 1.4 %; Hematocrit 38.8 % (37-53); Lymphocytes # 2.1 10^3/uL (0.8-4.8); Lymphocytes % 12.2 %; Mean Corpuscular HGB Conc 33.8 g/dL (30-55); Mean Corpuscular Hemoglobin 29.9 pg (27-33); Mean Corpuscular Volume 88.6 fl (82-101); Mean Platelet Volume 9.4 fL (7.4-10.4); Monocytes # 2.3 10^3/uL (0.2-0.9); Monocytes % 13.3 %; Neutrophils # 12.53 10^3/uL (1.8-7.7); Neutrophils % 72.2 %; Nucleated Red Blood Cells % 0 %; Platelet Count 210 10^3/cmm (157-399); Red Blood Count 4.38 10^6/uL (3.85-5.65); White Blood Count 17.35 10^3/uL (3.29-11.43)
[2024-07-14 21:20] LABS: Alanine Aminotransferase 7 U/L (0-41); Albumin Level 3.8 g/dL (3.5-5.2); Alkaline Phosphatase 66 U/L (40-130); Anion Gap 17.9 (5-19); Aspartate Amino Transferase 16 U/L (0-40); Blood Urea Nitrogen 19 mg/dL (8-23); C Reactive Protein 40.3 mg/L (0.0-4.9); Calcium 8.5 mg/dL (8.5-10.5); Carbon Dioxide 25 mmol/L (22-29); Chloride 90 mmol/L (98-107); Creatinine Clr Calc Pharmacy 58.1304; Globulin 2.9 g/dL (1.3-4.6); Glucose 101 mg/dL (65-115); Osmolality Calculated 270 mOsm/kg (285-295); Potassium 3.9 mmol/L (3.5-5.1); Sodium 129 mmol/L (136-145); Total Bilirubin 0.7 mg/dL (0.15-1.2); Total Protein 6.7 g/dL (6.6-8.7)
[2024-07-14 21:21] LABS: Lactic Sepsis W/Reflex 1.1 mmol/L (0.5-2.2)
[2024-07-14 21:27] LABS: Procalcitonin 0.14 ng/mL (0-0.5)
[2024-07-15] VITALS (22 sets, daily range): BP systolic 90–139; BP diastolic 44–85; PULSE 73–93; RESP 16–22; TEMP 36.8–38.5; O2SAT 90–97
--- NOTE | 2024-07-15 00:34 | W.ED.URI ---
Documented by User: JOSEPH Munguia 07/15/24 01:27 HPI - URI/Sore Throat General: Chief Complaint: Urogenital-Male Stated Complaint: fever chills post surg yesterday Time Seen by Provider: 07/15/24 00:20 Source: patient Mode of arrival: ambulatory Limitations: no limitations History of Present Illness: 83yo male presents with family for evaluation of fever, chills, and difficulty voiding. Patient reports that he did have back surgery yesterday at [facility] in [place] due to spinal stenosis. They are not certain exactly what the surgery was, but patient states he was told they removed a bunch of junk. Patient reports he was discharged this morning from the hospital and was told everything was fine. States by the time he got home he had chills and was noted to have a fever. Patient states that he feels as if he has to void, but is only able to produce drops at a time. Patient does not believe he had a catheter during the surgery. He does state that he thought he had wheezing earlier today. Patient's reports that he does have back pain, but last took his pain medication approximately 6 hours prior to exam. Patient denies difficulty breathing, shortness of breath, chest pain, vomiting, abdominal pain, decreased sensation of the lower extremities, any other concern at this time. Associated symptoms: Reports chills and fever(s); Deny chest pain, headache(s) or vomiting Related Data Home Medications ?Medication ?Instructions ?Recorded ?Confirmed antiarthritic combination no.2 900 900 mg PO DAILY 09/07/19 06/01/24 mg tablet (glucosamine-chondroitin) citalopram 20 mg tablet (Celexa) 20 mg PO DAILY 09/07/19 06/01/24 lisinopril 20 1 tab PO DAILY 09/07/19 06/01/24 mg-hydrochlorothiazide 25 mg tablet metoprolol tartrate 100 mg tablet 100 mg PO BID 09/07/19 06/01/24 simvastatin 20 mg tablet 20 mg PO BEDTIME 01/19/20 06/01/24 aspirin 81 mg tablet,delayed 81 mg PO DAILY 08/14/20 06/01/24 release vit C 250 mg-vit E 90 mg-zinc 40 1 tab PO BID 08/14/20 06/01/24 mg-copper 1 [id number]-[id number] capsule (PreserVision AREDS-2) levothyroxine 50 mcg tablet 50 mcg PO QAM 04/22/23 06/01/24 Previous Rx's ?Medication ?Instructions ?Recorded omeprazole 20 mg capsule,delayed 20 mg PO BID #0 caps 08/14/20 release Allergies Allergy/AdvReac Type Severity Reaction Status Date / Time amlodipine AdvReac Severe ADR-Fatigue Verified 07/07/24 14:12 d Review of Systems Const: Reports: fever(s) and chills Card: Denies: chest pain Resp: Reports: non-productive cough and wheezing; Denies: dyspnea GI: Denies: vomiting Musc: Reports: back pain (surgery 07/13) Neuro: Denies: headache(s) PFSH ED PFSH: Medical History 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 Patient tells me he wants full code as we discussed today on 07/14/2024 with Alex Perkins MD. The patient still chews school 1 can every 4 days previously was 1 candidate. He quit smoking tobacco 40 years ago. 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 He is able to give history with assistance from family. He is interactive with exam appropriately. Family is at bedside HENMT: COMMON NORMALS: normocephalic and atraumatic HEAD & SCALP: normocephalic and atraumatic Neck/C-Spine: COMMON NORMALS: negative for full ROM Chest: CHEST: Yes Symmetrical chest wall rise Resp: COMMON NORMALS: normal respiratory effort EFFORT & INSPECTION: Yes able to speak in complete sentences, Yes Actively coughing non-productive and No retractions AUSCULTATION: crackles Laterality: right (lower) and left (lower) and wheezes left upper Cardio: COMMON NORMALS: regular rate and regular rhythm RATE: regular rate RHYTHM: regular rhythm Extremity: COMMON NORMALS: full ROM Neuro: COMMON NORMALS: patient oriented x3, moves all extremities and no sensory deficits noted OTHER: Lower extremity sensation intact and equal bilaterally. Strong dorsiflexion and plantarflexion bilaterally. Course Vital Signs: Vital signs: Vital Signs Temperature 98.3 F 07/15/24 02:00 Pulse Rate 92 07/15/24 02:00 Respiratory Rate 19 H 07/15/24 00:30 Blood Pressure 110/51 07/15/24 02:00 Pulse Oximetry 92 07/15/24 02:00 Oxygen Delivery Me thod Room Air 07/15/24 02:00 MDM - URI/Sore Throat Medical Decision Making 83yo male presents with family for evaluation of fever, chills, and difficulty voiding. Patient reports that he did have back surgery yesterday at [facility] in [place] due to spinal stenosis. Patient is nontoxic in appearance. Low-grade temperature noted on triage vitals at 99.5. Repeat temperature upon exam noted to be 101.3 oral. Patient was provided with acetaminophen for the fever as well as morphine and ondansetron to help with his pain. Leukocytosis noted with a white blood cell count of 17.35. No indication of anemia, hemoglobin is 13.1. Sodium is decreased at 129 compared to his previous on 07/08/2024 at 136. Glucose is in the normal range of 101. CRP is elevated at 40.3. Urine sample provided is unremarkable. Chest x-ray reveals bibasilar opacities, atelectasis versus infiltrates. Discussed these findings with patient and family. Advised that he would likely need to be admitted to the hospital for treatment of pneumonia. Discussed potential transfer to [facility] due to just having surgery yesterday, patient would prefer to stay in [place]. Dr. Sheehan to assume care due to change of shift, awaiting consult with hospitalist for admission. Medical Records I reviewed the patient's medical records. Lab Data I reviewed the patient's lab results. 07/14/24 20:52 07/14/24 20:50 Radiology Impressions Chest X-Ray 07/14/24 19:19 IMPRESSION: Bibasilar reticular opacities that might represent atelectasis versus infiltrates. Laboratory Results WBC 17.35 10^3/uL (3.29-11.43) H 07/14/24 20:52 RBC 4.38 10^6/uL (3.85-5.65) 07/14/24 20:52 Hgb 13.10 g/dL (11.27-16.99) 07/14/24 20:52 Hct 38.8 % (37-53) 07/14/24 20:52 MCV 88.6 fl (82-101) 07/14/24 20:52 MCH 29.9 pg (27-33) 07/14/24 20:52 MCHC 33.8 g/dL (30-55) 07/14/24 20:52 RDW 13.0 % (12.1-15.1) 07/14/24 20:52 Plt Count 210 10^3/cmm (157-399) 07/14/24 20:52 MPV 9.4 fL (7.4-10.4) 07/14/24 20:52 Neut % (Auto) 72.2 % 07/14/24 20:52 Lymph % (Auto) 12.2 % 07/14/24 20:52 Imperial % (Auto) 13.3 % 07/14/24 20:52 Eos % (Auto) 1.4 % 07/14/24 20:52 Baso % (Auto) 0.5 % 07/14/24 20:52 Neut # (Auto) 12.53 10^3/uL (1.8-7.7) H 07/14/24 20:52 Lymph # (Auto) 2.1 10^3/uL (0.8-4.8) 07/14/24 20:52 Imperial # (Auto) 2.3 10^3/uL (0.2-0.9) H 07/14/24 20:52 Eos # (Auto) 0.2 10^3/uL (0.0-0.8) 07/14/24 20:52 Baso # (Auto) 0.1 10^3/uL (0.0-0.1) 07/14/24 20:52 Nucleated RBC % (auto) 0 % 07/14/24 20:52 Nucleated RBCs # 0.0 /100WBC 07/14/24 20:52 ESR 9 mm/hr (0-10) 07/14/24 20:52 Sodium 129 mmol/L (136-145) L 07/14/24 20:50 Potassium 3.9 mmol/L (3.5-5.1) 07/14/24 20:50 Chloride 90 mmol/L (98-107) L 07/14/24 20:50 Carbon Dioxide 25 mmol/L (22-29) 07/14/24 20:50 Anion Gap 17.9 (5-19) 07/14/24 20:50 BUN 19 mg/dL (8-23) 07/14/24 20:50 Creatinine 1.0 mg/dL (0.7-1.2) 07/14/24 20:50 GFR Calculation Not Reportable 07/14/24 20:50 Glucose 101 mg/dL (65-115) 07/14/24 20:50 Calculated Osmolality 270 mOsm/kg (285-295) L 07/14/24 20:50 Lactic Acid 1.1 mmol/L (0.5-2.2) 07/14/24 20:50 Calcium 8.5 mg/dL (8.5-10.5) 07/14/24 20:50 Total Bilirubin 0.7 mg/dL (0.15-1.2) 07/14/24 20:50 AST 16 U/L (0-40) 07/14/24 20:50 ALT 7 U/L (0-41) 07/14/24 20:50 Alkaline Phosphatase 66 U/L (40-130) 07/14/24 20:50 C-Reactive Protein 40.3 mg/L (0.0-4.9) H 07/14/24 20:50 Total Protein 6.7 g/dL (6.6-8.7) 07/14/24 20:50 Albumin 3.8 g/dL (3.5-5.2) 07/14/24 20:50 Globulin 2.9 g/dL (1.3-4.6) 07/14/24 20:50 Procalcitonin 0.14 ng/mL (0-0.5) 07/14/24 20:50 Urine Color Yellow (Yellow) 07/14/24 20:23 Urine Appearance Clear (CLEAR) 07/14/24 20:23 Urine pH 5.5 (5-7) 07/14/24 20:23 Ur Specific Montague 1.012 (1.005-1.030) 07/14/24 20:23 Urine Protein Negative (Negative) 07/14/24 20:23 Urine Glucose (UA) Negative (Normal) 07/14/24 20:23 Urine Ketones Negative (Negative) 07/14/24 20:23 Urine Blood Negative (Negative) 07/14/24 20:23 Urine Nitrate Negative (Negative) 07/14/24 20:23 Urine Bilirubin Negative (Negative) 07/14/24 20:23 Urine Urobilinogen 0.2 mg/dL (Negative) 07/14/24 20:23 Ur Leukocyte Esterase Negative (Negative) 07/14/24 20:23 Urine RBC 0-2 /hpf (0-2) 07/14/24 20:23 Urine WBC 0-5 /hpf (0-5) 07/14/24 20:23 Ur Squamous Epith Cells 0-5 /hpf (0-5) 07/14/24 20:23 Amorphous Sediment Not Reportable 07/14/24 20:23 Urine Bacteria None seen /hpf (NONE) 07/14/24 20:23 Hyaline Casts 1.21 /lpf 07/14/24 20:23 Influenza A (PCR) Negative (Negative) 07/15/24 00:47 Influenza Type B (PCR) Negative (Negative) 07/15/24 00:47 RSV (PCR) Negative (Negative) 07/15/24 00:47 SARS-CoV-2 (PCR) Negative (Negative) 07/15/24 00:47 All radiology interpretation(s) finalized by discharge Discharge Plan Discharge Patient Disposition: Admitted As Inpatient Clinical Impression: Acute hyponatremia Pneumonia Qualifiers: Pneumonia type: due to unspecified organism Laterality: bilateral Lung location: lower lobe of lung Qualified Code(s): J18.9 - Pneumonia, unspecified organism Condition: Stable Coding Level of Care Code ED [employer] for Larissa Fwelie Documented by User: Cheryl Sheehan MD 07/15/24 04:12 HPI - URI/Sore Throat General: Chief Complaint: Urogenital-Male Stated Complaint: fever chills post surg yesterday Time Seen by Provider: 07/15/24 00:20 Related Data Home Medications ?Medication ?Instructions ?Recorded ?Confirmed antiarthritic combination no.2 900 900 mg PO DAILY 09/07/19 06/01/24 mg tablet (glucosamine-chondroitin) citalopram 20 mg tablet (Celexa) 20 mg PO DAILY 09/07/19 06/01/24 lisinopril 20 1 tab PO DAILY 09/07/19 06/01/24 mg-hydrochlorothiazide 25 mg tablet metoprolol tartrate 100 mg tablet 100 mg PO BID 09/07/19 06/01/24 simvastatin 20 mg tablet 20 mg PO BEDTIME 01/19/20 06/01/24 aspirin 81 mg tablet,delayed 81 mg PO DAILY 08/14/20 06/01/24 release vit C 250 mg-vit E 90 mg-zinc 40 1 tab PO BID 08/14/20 06/01/24 mg-copper 1 [id number]-[id number] capsule (PreserVision AREDS-2) levothyroxine 50 mcg tablet 50 mcg PO QAM 04/22/23 06/01/24 Previous Rx's ?Medication ?Instructions ?Recorded omeprazole 20 mg capsule,delayed 20 mg PO BID #0 caps 08/14/20 release Allergies Allergy/AdvReac Type Severity Reaction Status Date / Time amlodipine AdvReac Severe ADR-Fatigue Verified 07/07/24 14:12 d PFS ED PFSH: Medical History 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 Patient tells me he wants full code as we discussed today on 07/14/2024 with Alex Perkins MD. The patient still chews school 1 can every 4 days previously was 1 candidate. He quit smoking tobacco 40 years ago. 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 [employer] Adopted: No Household members: spouse Housing: House Marital status: Number of children: 3 Highest education level completed: High School Graduate Current occupational status: retired Pets and animals: Yes Current gender identity: Male Course Vital Signs: Vital signs: Vital Signs Temperature 98.3 F 07/15/24 02:00 Pulse Rate 92 07/15/24 02:00 Respiratory Rate 19 H 07/15/24 00:30 Blood Pressure 110/51 07/15/24 02:00 Pulse Oximetry 92 07/15/24 02:00 Oxygen Delivery Me thod Room Air 07/15/24 02:00 MDM - URI/Sore Throat Medical Decision Making 83yo male presents with family for evaluation of fever, chills, and difficulty voiding. Patient reports that he did have back surgery yesterday at [facility] in [place] due to spinal stenosis. Patient is nontoxic in appearance. Low-grade temperature noted on triage vitals at 99.5. Repeat temperature upon exam noted to be 101.3 oral. Patient was provided with acetaminophen for the fever as well as morphine and ondansetron to help with his pain. Leukocytosis noted with a white blood cell count of 17.35. No indication of anemia, hemoglobin is 13.1. Sodium is decreased at 129 compared to his previous on 07/08/2024 at 136. Glucose is in the normal range of 101. CRP is elevated at 40.3. Urine sample provided is unremarkable. Chest x-ray reveals bibasilar opacities, atelectasis versus infiltrates. Discussed these findings with patient and family. Advised that he would likely need to be admitted to the hospital for treatment of pneumonia. Discussed potential transfer to [facility] due to just having surgery yesterday, patient would prefer to stay in [place]. Dr. Sheehan to assume care due to change of shift, awaiting consult with hospitalist for admission. Patient admitted to the hospitalist. Lab Data 07/14/24 20:52 07/14/24 20:50 Radiology Impressions Chest X-Ray 07/14/24 19:19 IMPRESSION: Bibasilar reticular opacities that might represent atelectasis versus infiltrates. Laboratory Results WBC 17.35 10^3/uL (3.29-11.43) H 07/14/24 20:52 RBC 4.38 10^6/uL (3.85-5.65) 07/14/24 20:52 Hgb 13.10 g/dL (11.27-16.99) 07/14/24 20:52 Hct 38.8 % (37-53) 07/14/24 20:52 MCV 88.6 fl (82-101) 07/14/24 20:52 MCH 29.9 pg (27-33) 07/14/24 20:52 MCHC 33.8 g/dL (30-55) 07/14/24 20:52 RDW 13.0 % (12.1-15.1) 07/14/24 20:52 Plt Count 210 10^3/cmm (157-399) 07/14/24 20:52 MPV 9.4 fL (7.4-10.4) 07/14/24 20:52 Neut % (Auto) 72.2 % 07/14/24 20:52 Lymph % (Auto) 12.2 % 07/14/24 20:52 Imperial % (Auto) 13.3 % 07/14/24 20:52 Eos % (Auto) 1.4 % 07/14/24 20:52 Baso % (Auto) 0.5 % 07/14/24 20:52 Neut # (Auto) 12.53 10^3/uL (1.8-7.7) H 07/14/24 20:52 Lymph # (Auto) 2.1 10^3/uL (0.8-4.8) 07/14/24 20:52 Imperial # (Auto) 2.3 10^3/uL (0.2-0.9) H 07/14/24 20:52 Eos # (Auto) 0.2 10^3/uL (0.0-0.8) 07/14/24 20:52 Baso # (Auto) 0.1 10^3/uL (0.0-0.1) 07/14/24 20:52 Nucleated RBC % (auto) 0 % 07/14/24 20:52 Nucleated RBCs # 0.0 /100WBC 07/14/24 20:52 ESR 9 mm/hr (0-10) 07/14/24 20:52 Sodium 129 mmol/L (136-145) L 07/14/24 20:50 Potassium 3.9 mmol/L (3.5-5.1) 07/14/24 20:50 Chloride 90 mmol/L (98-107) L 07/14/24 20:50 Carbon Dioxide 25 mmol/L (22-29) 07/14/24 20:50 Anion Gap 17.9 (5-19) 07/14/24 20:50 BUN 19 mg/dL (8-23) 07/14/24 20:50 Creatinine 1.0 mg/dL (0.7-1.2) 07/14/24 20:50 GFR Calculation Not Reportable 07/14/24 20:50 Glucose 101 mg/dL (65-115) 07/14/24 20:50 Calculated Osmolality 270 mOsm/kg (285-295) L 07/14/24 20:50 Lactic Acid 1.1 mmol/L (0.5-2.2) 07/14/24 20:50 Calcium 8.5 mg/dL (8.5-10.5) 07/14/24 20:50 Total Bilirubin 0.7 mg/dL (0.15-1.2) 07/14/24 20:50 AST 16 U/L (0-40) 07/14/24 20:50 ALT 7 U/L (0-41) 07/14/24 20:50 Alkaline Phosphatase 66 U/L (40-130) 07/14/24 20:50 C-Reactive Protein 40.3 mg/L (0.0-4.9) H 07/14/24 20:50 Total Protein 6.7 g/dL (6.6-8.7) 07/14/24 20:50 Albumin 3.8 g/dL (3.5-5.2) 07/14/24 20:50 Globulin 2.9 g/dL (1.3-4.6) 07/14/24 20:50 Procalcitonin 0.14 ng/mL (0-0.5) 07/14/24 20:50 Urine Color Yellow (Yellow) 07/14/24 20:23 Urine Appearance Clear (CLEAR) 07/14/24 20:23 Urine pH 5.5 (5-7) 07/14/24 20:23 Ur Specific [place]ague 1.012 (1.005-1.030) 07/14/24 20:23 Urine Protein Negative (Negative) 07/14/24 20:23 Urine Glucose (UA) Negative (Normal) 07/14/24 20:23 Urine Ketones Negative (Negative) 07/14/24 20:23 Urine Blood Negative (Negative) 07/14/24 20:23 Urine Nitrate Negative (Negative) 07/14/24 20:23 Urine Bilirubin Negative (Negative) 07/14/24 20:23 Urine Urobilinogen 0.2 mg/dL (Negative) 07/14/24 20:23 Ur Leukocyte Esterase Negative (Negative) 07/14/24 20:23 Urine RBC 0-2 /hpf (0-2) 07/14/24 20:23 Urine WBC 0-5 /hpf (0-5) 07/14/24 20:23 Ur Squamous Epith Cells 0-5 /hpf (0-5) 07/14/24 20:23 Amorphous Sediment Not Reportable 07/14/24 20:23 Urine Bacteria None seen /hpf (NONE) 07/14/24 20:23 Hyaline Casts 1.21 /lpf 07/14/24 20:23 Influenza A (PCR) Negative (Negative) 07/15/24 00:47 Influenza Type B (PCR) Negative (Negative) 07/15/24 00:47 RSV (PCR) Negative (Negative) 07/15/24 00:47 SARS-CoV-2 (PCR) Negative (Negative) 07/15/24 00:47 Discharge Plan Discharge Patient Disposition: Admitted As Inpatient Clinical Impression: Acute hyponatremia Pneumonia Qualifiers: Pneumonia type: due to unspecified organism Laterality: bilateral Lung location: lower lobe of lung Qualified Code(s): J18.9 - Pneumonia, unspecified organism Condition: Stable Coding Level of Care Code ED [employer] for Larissa Zavala
[2024-07-15] MEDS: acetaminophen 325 mg Tablet 650 MG PO (00:42)
[2024-07-15] MEDS: morphine 4 mg/mL SDV 1 mL IVP (00:45)
[2024-07-15] MEDS: ondansetron 2 mg/ML SDV 2 mL 4 MG IVP (00:45)
[2024-07-15] MEDS: sodium chloride 0.9% 1,000 ML 999 ML IV (00:57)
[2024-07-15 02:01] LABS: Influenza A NEGATIVE (Negative); Influenza B NEGATIVE (Negative); Respiratory Syncytial Virus Ce NEGATIVE (Negative); SARS-CoV-2 PCR NEGATIVE (Negative)
[2024-07-15] MEDS: cefepime 2,000 mg SDV 2000 MG IVP (02:05)
[2024-07-15] MEDS: AZITHROMYCIN ADD-Vantage 500 MG in 0.9% NaCl ADD-Vantage 250 ML 250 MG IV (02:05)
--- NOTE | 2024-07-15 03:01 | PM.HP ---
Providers/Chief Complaint Primary Care Provider: Adi Walters MD Chief Complaint: fever chills post surg yesterday History of Present Illness Joe Nowak is a 83 year old male who had surgery at [facility] Friday spent the night and went home on Friday but by Friday evening was having fevers cough and temperature 101.7. He has had trouble voiding urine white count found to be 17,000 temp 101.7 chest x-ray shows bibasilar infiltrates and sodium was 129 down from 136. Patient tends to run borderline hyponatremic on our labs all the time. Patient states his back is not particularly painful in the setting of postoperative course day 2 Review of Systems Narrative: General positive for fevers cough Cardiovascular no chest pain palpitations edema Respiratory positive for cough wheezing he was told by the respiratory therapist prior to him leaving [facility] that he did not need a breathing treatment that he requested and that phlegm would clear GI no nausea vomiting no diarrhea constipation denies hematuria or dysuria but he has had urinary hesitancy new since his surgery Musculoskeletal painful with moving cannot sit up without help Hematologic negative for blood clots or cancer. Patient states he gets chills easily after just vaccines having chills for 3 days Medications/Allergies Home Medications ?Medication ?Instructions ?Recorded ?Confirmed ?Last Taken ?Type antiarthritic combination no.2 900 900 mg PO DAILY 09/07/19 06/01/24 06/01/24 History mg tablet (glucosamine-chondroitin) citalopram 20 mg tablet (Celexa) 20 mg PO DAILY 09/07/19 06/01/24 06/01/24 History lisinopril 20 1 tab PO DAILY 09/07/19 06/01/24 06/01/24 History mg-hydrochlorothiazide 25 mg tablet metoprolol tartrate 100 mg tablet 100 mg PO BID 09/07/19 06/01/24 06/01/24 History simvastatin 20 mg tablet 20 mg PO BEDTIME 01/19/20 06/01/24 05/31/24 History aspirin 81 mg tablet,delayed 81 mg PO DAILY 08/14/20 06/01/24 06/01/24 History release omeprazole 20 mg capsule,delayed 20 mg PO BID #0 caps 08/14/20 06/01/24 06/01/24 Rx release vit C 250 mg-vit E 90 mg-zinc 40 1 tab PO BID 08/14/20 06/01/24 06/01/24 History mg-copper 1 [id number]-[id number] capsule (PreserVision AREDS-2) levothyroxine 50 mcg tablet 50 mcg PO QAM 04/22/23 06/01/24 06/01/24 History Allergies Allergy/AdvReac Type Severity Reaction Status Date / Time amlodipine AdvReac Severe ADR-Fatigue Verified 07/07/24 14:12 d PFSH Acute PFSH: Medical History 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 Patient tells me he wants full code as we discussed today on 07/14/2024 with Alex Perkins MD. The patient still chews school 1 can every 4 days previously was 1 candidate. He quit smoking tobacco 40 years ago. 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 [email or web address] Adopted: No Household members: spouse Housing: House Marital status: Number of children: 3 Highest education level completed: High School Graduate Current occupational status: retired Pets and animals: Yes Current gender identity: Male Vitals/I&O/Wt Last Vital Signs Temp 98.3 F 07/15/24 02:00 Pulse 92 07/15/24 02:00 Resp 19 H 07/15/24 00:30 BP 110/51 07/15/24 02:00 Pulse Ox 92 07/15/24 02:00 O2 Del Method Room Air 05/29/25 02:00 Weight last 48 hrs Weight 81.647 kg Physical Exam Narrative: General Well-developed male in no acute cardiopulmonary distress CV regular rate and rhythm Lungs clear to auscultation bilaterally Abdomen positive bowel sounds soft nontender Back Heese antalgic with movement. I did loosen the dressing but did not remove the underlying dressing covering the incision. Dressing is clean and dry there is no erythema tenderness is minimal and consistent with postoperative condition Calves no tenderness cords pretrip edema Data 07/14/24 20:52 07/14/24 20:50 Micro: Microbiology 07/14/24 20:50 Blood Culture - Preliminary Blood SPECIMEN COLLECTED 07/14/24 20:52 Blood Culture - Preliminary Blood SPECIMEN COLLECTED A&P Assessment and plan (1) Pneumonia: Read as pneumonia by the radiologist but I see very little in the way of infiltrates. Patient's saturation is 90% on room air down from 97% on room air on previous. Continue with azithromycin and Rocephin and recheck white count. (2) Acute hyponatremia: Saline for hyponatremia and potassium replacement (3) Hypercholesteremia: Stable on statin PDMP PDMP Reviewed: Not Reviewed Attestations Medical Necessity Statement*: Patient expect to be in the hospital 1-2 midnights for hyponatremia and pneumonia Coding Level of Care Code Acute Code for [facility] Fwd Diagnoses Pneumonia J18.9 Laterality: bilateral Lung location: lower lobe of lung Pneumonia type: due to unspecified organism Acute hyponatremia E87.1 Hypercholesteremia E78.00 Time Spent (min) 70
[2024-07-15] MEDS: sodium chlor 0.9% + KCl 20 mEq 20 MEQ/1,000 ML BAG 100 MEQ IV ×2 (05:07→18:54)
[2024-07-15 06:00] LABS: Basophils # 0.1 10^3/uL (0.0-0.1); Basophils % 0.5 %; Eosinophils # 0.2 10^3/uL (0.0-0.8); Eosinophils % 1.2 %; Hematocrit 35.4 % (37-53); Lymphocytes # 1.9 10^3/uL (0.8-4.8); Lymphocytes % 12.2 %; Mean Corpuscular HGB Conc 33.6 g/dL (30-55); Mean Corpuscular Volume 89.2 fl (82-101); Monocytes # 2.2 10^3/uL (0.2-0.9); Monocytes % 14.5 %; Neutrophils # 10.93 10^3/uL (1.8-7.7); Neutrophils % 71.2 %; Nucleated Red Blood Cells % 0 %; Platelet Count 187 10^3/cmm (157-399); Red Blood Count 3.97 10^6/uL (3.85-5.65); Red Cell Distribution Width 13.2 % (12.1-15.1); White Blood Count 15.35 10^3/uL (3.29-11.43)
[2024-07-15 06:11] LABS: Anion Gap 11.8 (5-19); Blood Urea Nitrogen 18 mg/dL (8-23); Calcium 8.2 mg/dL (8.5-10.5); Carbon Dioxide 27 mmol/L (22-29); Chloride 95 mmol/L (98-107); Creatinine Clr Calc Pharmacy 58.1304; Glucose 98 mg/dL (65-115); Osmolality Calculated 272 mOsm/kg (285-295); Potassium 3.8 mmol/L (3.5-5.1); Sodium 130 mmol/L (136-145)
[2024-07-15] MEDS: levothyroxine 50 mcg Tablet PO (07:24)
[2024-07-15] MEDS: aspirin 81 mg EC Tablet PO (08:44)
[2024-07-15] MEDS: enoxaparin 40 mg/0.4 mL Syringe SUBCUT (08:45)
[2024-07-15] MEDS: docusate sodium 100 mg Capsule PO ×2 (08:45→17:47)
[2024-07-15] MEDS: metoprolol succinate ER (24 HR) 50 mg Tablet 100 MG PO (08:45)
[2024-07-15] MEDS: pantoprazole DR 40 mg Tablet PO (08:45)
[2024-07-15] MEDS: citalopram 20 mg Tablet PO (08:45)
--- NOTE | 2024-07-15 10:30 | CTR_ITS ---
PROCEDURE INFORMATION: Exam: CT Lumbar Spine Without Contrast Exam date and time: 07/15/2024 11:54 AM Age: 83 years old Clinical indication: Postop fever, status post lumbar spine surgery. Recent abdominal surgery. Prior surgery; Surgery date: 3-7 days post-operative; Surgery type: Hiatal hernia 2 days ago TECHNIQUE: Imaging protocol: Computed tomography of the lumbar spine without contrast. Radiation optimization: All CT scans at this facility use at least one of these dose optimization techniques: automated exposure control; mA and/or kV adjustment per patient size (includes targeted exams where dose is matched to clinical indication); or iterative reconstruction. 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 No definite acute osseous abnormality identified. The patient is status post wide decompressive laminectomy at L3 with expected postoperative gas and fluid in the posterior soft tissues. Presence or absence of complicating infection cannot be confirmed as there is no rim enhancing fluid collection evident at this time. Fluid aspiration could be obtained if clinically warranted. There appears to be large broad posterior disc protrusion at L3-L4, more prominent to the left of midline. Variable degrees of chronic central canal stenosis are present at other lumbar levels. CT/CT lumbar spine recon [id number] IMPRESSION: 1. There is evidence of recent posterior lumbar surgery at the L3 level with expected postoperative gas and fluid at the operative site. The findings are not specific for the presence of postoperative infection. 2. Multilevel lumbar spinal stenosis.
--- NOTE | 2024-07-15 10:30 | CTR_ITS ---
PROCEDURE INFORMATION: Exam: CT Chest With Contrast; Diagnostic Exam date and time: 07/15/2024 11:54 AM Age: 83 years old Clinical indication: Prior surgery; Surgery date: 3-7 days post-operative; Surgery type: Hiatal hernia 2 days ago; -- post op fever after surgery of hiatal hernia repair 2 days ago; Additional info: Post operative fever TECHNIQUE: Imaging protocol: Diagnostic computed tomography of the chest with contrast. Radiation optimization: All CT scans at this facility use at least one of these dose optimization techniques: automated exposure control; mA and/or kV adjustment per patient size (includes targeted exams where dose is matched to clinical indication); or iterative reconstruction. Contrast material: OMNI 350; Contrast volume: 100 ml; Contrast route: INTRAVENOUS (IV); COMPARISON: CT angio chest PE protcl 06/01/2024 RADIATION DOSE METRICS: Total DLP (mGy-cm): 1162.79 FINDINGS: No pathologic axillary or mediastinal adenopathy identified. Multivessel atherosclerotic coronary artery calcifications are present. Heart size within normal range. No pericardial effusion. Calcifications are also seen in the region of the aortic valve. There are no pleural effusions. Minimal posterior lower lobe subsegmental atelectasis; otherwise, no focal airspace consolidation. Small calcified granuloma is noted in the right upper lobe laterally. A few additional very tiny nodular opacities in the peripheral lung zones likely represent noncalcified granulomas. No obvious acute osseous abnormality detected. PROCEDURE INFORMATION: Exam: CT Abdomen And Pelvis With Contrast Exam date and time: 07/15/2024 11:54 AM Age: 83 years old Clinical indication: Prior surgery; Surgery date: 3-7 days post-operative; Surgery type: Hiatal hernia 2 days ago; -- post op fever after surgery of hiatal hernia repair 2 days ago; Additional info: Post operative fever TECHNIQUE: Imaging protocol: Computed tomography of the abdomen and pelvis with contrast. Radiation optimization: All CT scans at this facility use at least one of these dose optimization techniques: automated exposure control; mA and/or kV adjustment per patient size (includes targeted exams where dose is matched to clinical indication); or iterative reconstruction. Contrast material: OMNI 350; Contrast volume: 100 ml; Contrast route: INTRAVENOUS (IV); COMPARISON: CT abdomen pelvis 05/13/2021 RADIATION DOSE METRICS: Total DLP (mGy-cm): 1162.79 FINDINGS: No free intraperitoneal air identified. No localized fluid collection within the peritoneal cavity. No acute abnormality of the liver, spleen, pancreas, or adrenal glands. No significant change in pancreas morphology compared to 05/13/2021. There is no biliary duct dilation or gallbladder wall thickening. Symmetric renal parenchymal enhancement. There are no ureteral calculi. Urinary bladder has smooth contour. Aortoiliac atherosclerotic calcifications are present without aneurysmal dilation. 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 Calcified plaque at origin of celiac artery does not appear to be associated with severe stenosis. Images through the pelvis demonstrate no evidence of bowel obstruction or definite acute abnormality within the pelvic cavity. Colonic diverticulosis is present without convincing evidence of acute diverticulitis. Urinary bladder has smooth contour. No obvious acute pelvic osseous abnormality detected. Please refer to CT lumbar spine report for additional findings related to the lumbar spine. CT/CT chest abdpel w/*[id number] IMPRESSION: Mild posterior subsegmental atelectasis. Otherwise, no obvious acute intrathoracic abnormality identified. IMPRESSION: 1. No definite acute abnormality identified within the peritoneal cavity or retroperitoneum. No evidence of intra-abdominal abscess or bowel obstruction. 2. CT lumbar spine performed and reported separately. Please refer to that report for additional findings.
[2024-07-15 11:23] LABS: Procalcitonin 0.14 ng/mL (0-0.5); Vitamin B12 289 pg/mL (232-1245)
[2024-07-15 11:24] LABS: Estmated Average Glucose 117; Hemoglobin A1C 5.7 % (4.0-6.0)
[2024-07-15 11:35] LABS: Iron 19 ug/dL (59-158); Percent Saturation 7.1 % (20-50); Total Iron Binding Capacity 267 mcg/dl; Unsaturated Iron Binding 248 ug/dL (112-347)
[2024-07-15] MEDS: iohexol 350 mg/mL 500 mL Btl (per mL) IV (12:18)
[2024-07-15 13:21] LABS: Adenovirus Not Detected (NOT DETECT); Chlamydia Pneumoniae Not Detected (NOT DETECT); Coronavirus 229E,HKU1,NL63,OC4 Not Detected (NOT DETECT); Human Metapneumovirus Not Detected (NOT DETECT); Human Rhinovirus/Enterovirus Not Detected (NOT DETECT); Influenza A Not Detected (NOT DETECT); Influenza A H1 Not Detected (NOT DETECT); Influenza A H1-2009 Not Detected (NOT DETECT); Influenza A H3 Not Detected (NOT DETECT); Influenza B Not Detected (NOT DETECT); Mycoplasma Pneumoniae Not Detected (NOT DETECT); Parainfluenza Virus Type 1 Not Detected (NOT DETECT); Parainfluenza Virus Type 2 Not Detected (NOT DETECT); Parainfluenza Virus Type 3 Not Detected (NOT DETECT); Parainfluenza Virus Type 4 Not Detected (NOT DETECT); Respiratory Syncytial Virus A Not Detected (NOT DETECT); Respiratory Syncytial Virus B Not Detected (NOT DETECT); SARS-COV-2 Not Detected (NOT DETECT)
--- NOTE | 2024-07-15 16:01 | P.PN_ITS ---
Subjective 2 Subjective: Admitted earlier today morning for fever. Patient states he was discharged from [facility] after surgery for lumbar stenosis yesterday. Was able to walk prior to surgery. When reached home had chills and was found to have a fever. Denies any nausea, vomiting, headache, diarrhea, cough, difficulty in breathing. Currently complaining of dysuria. Vitals/I&O/Wt Last Vital Signs Temp 99.0 F 07/15/24 15:25 Pulse 87 07/15/24 15:25 Resp 20 H 07/15/24 15:25 BP 130/63 07/15/24 15:25 Pulse Ox 96 07/15/24 15:25 O2 Del Method Room Air 07/15/24 15:25 07/15/24 07/15/24 07/15/24 06:59 14:59 22:59 Intake Total 1450 / 1450 240 / 240 Balance 1450 / 1450 240 / 240 Weight last 48 hrs Weight 89.018 kg Weight 89.086 kg Weight 81.647 kg Physical Exam 2 Narrative: General Well-developed male in no acute cardiopulmonary distress CV regular rate and rhythm Lungs clear to auscultation bilaterally Abdomen positive bowel sounds soft nontender Back Heese antalgic with movement. I did loosen the dressing but did not remove the underlying dressing covering the incision. Dressing is clean and dry there is no erythema tenderness is minimal and consistent with postoperative condition Calves no tenderness cords pretrip edema Data 07/15/24 04:24 07/15/24 04:24 Micro: Microbiology 07/14/24 20:50 Blood Culture - Preliminary Blood SPECIMEN COLLECTED 07/14/24 20:52 Blood Culture - Preliminary Blood SPECIMEN COLLECTED A&P Assessment and plan (1) Postoperative fever: Appreciate chest x-ray. Not on and off evidence of pneumonia on chest x-ray. Patient remains on room air. He does have leukocytosis. Not sure of what his labs were postoperatively at [facility]. Denies any diarrhea. Check respiratory viral panel. Repeat urinalysis. Complaining of dysuria which is new. CT abdomen pelvis chest with contrast along with lumbar spine given recent surgery. Cannot rule out noninfectious causes of fever including atelectasis versus possible VTE. Check D-dimer though could be falsely elevated given recent surgery. Check lower limb Dopplers. Incentive spirometry. (2) Pneumonia: Read as pneumonia by the radiologist but I see very little in the way of infiltrates. Patient's saturation is 90% on room air down from 97% on room air on previous. Continue with azithromycin and Rocephin. Add vancomycin. Check MRSA swab. If negative will discontinue vancomycin. (3) Acute hyponatremia: Sodium level improving to 130. Continue with IV fluid for now. Repeat BMP morning. (4) Lumbar canal stenosis: (5) Status post kyphoplasty: (6) Dysuria: Start on Flomax 0.4 mg daily. Pyridium 100 mg 3 times daily (7) Hypertension: Goal blood pressure less than 140/90 mmHg. It seems patient takes lisinopril?hydrochlorothiazide along with metoprolol 100 twice daily at home. Currently blood pressure slightly soft. Hold off on antihypertensive for now. Plan Full code Cardiac diet Protonix for PUD prophylaxis Lovenox for DVT prophylaxis PDMP PDMP Reviewed: Not Reviewed Attestations 2 Medical Necessity Statement*: Requires further hospitalization for management of postoperative fever under evaluation Other Coding Information Prolonged care (total time indicated above or notated here) (Evaluating postoperative care, ordering labs, ordering imaging, documents from outside hospital) Diagnoses Postoperative fever R50.82 Pneumonia J18.9 Laterality: bilateral Lung location: lower lobe of lung Pneumonia type: due to unspecified organism Acute hyponatremia E87.1 Lumbar canal stenosis M48.061 Status post kyphoplasty Z98.890 Dysuria R30.0 Primary hypertension I10 Hypertension type: primary hypertension
--- NOTE | 2024-07-15 16:05 | USR_ITS ---
PROCEDURE INFORMATION: Exam: US Duplex Lower Extremity Veins, Bilateral Exam date and time: 07/15/2024 5:01 PM Age: 83 years old Clinical indication: Screening exam; Back surgery done on Friday; Additional info: Possible dvt TECHNIQUE: Imaging protocol: Real-time duplex ultrasound of the bilateral extremities with 2-D shepherd scale, color Doppler flow and spectral waveform analysis including responses to compression and other maneuvers (when performed) with image documentation. Complete exam focused on the lower extremity veins. COMPARISON: US renal BI* [id number] 04/10/2020 3:50 PM FINDINGS: Right deep veins: Unremarkable. The common femoral, femoral, proximal profunda femoral and popliteal veins are patent without thrombus. Normal Doppler waveforms. Normal compressibility and/or augmentation response. Left deep veins: Unremarkable. The common femoral, femoral, proximal profunda femoral and popliteal veins are patent without thrombus. Normal Doppler waveforms. Normal compressibility and/or augmentation response. Superficial veins: Greater saphenous veins at the saphenofemoral junctions are patent bilaterally without thrombus. Soft tissues: Unremarkable. US/[place] [id number] IMPRESSION: No evidence of deep vein thrombosis.
--- NOTE | 2024-07-15 16:24 | PHA.VACGOAL ---
Vancomycin Goal - Goal Vancomycin Goal:: 15-20 mg/L Vancomycin Indication:: Pneumonia - Therapy Day of therpy:: Day []of [] . Actual body weight (kg): 196 lb 4 oz - Data Labs: WBC 15.35 10^3/uL (3.29-11.43) H 07/15/24 04:24 RBC 3.97 10^6/uL (3.85-5.65) 07/15/24 04:24 Hgb 11.90 g/dL (11.27-16.99) 07/15/24 04:24 Hct 35.4 % (37-53) L 07/15/24 04:24 MCV 89.2 fl (82-101) 07/15/24 04:24 MCH 30.0 pg (27-33) 07/15/24 04:24 MCHC 33.6 g/dL (30-55) 07/15/24 04:24 RDW 13.2 % (12.1-15.1) 07/15/24 04:24 Sodium 130 mmol/L (136-145) L 07/15/24 04:24 Potassium 3.8 mmol/L (3.5-5.1) 07/15/24 04:24 Chloride 95 mmol/L (98-107) L 07/15/24 04:24 Carbon Dioxide 27 mmol/L (22-29) 07/15/24 04:24 Anion Gap 11.8 (5-19) 07/15/24 04:24 BUN 18 mg/dL (8-23) 07/15/24 04:24 Creatinine 1.0 mg/dL (0.7-1.2) 07/15/24 04:24 GFR Calculation Not Reportable 07/15/24 04:24 Treatment plan:: new consult Regimen:: POSSIBLE PNEUMONIA START 750 MG Q12H DC IF MRSA NASAL SWAB NEGATIVE
[2024-07-15 17:15] LABS: D Dimer 0.72 ug/mLFEU (0-0.59)
[2024-07-15] MEDS: tamsulosin 0.4 mg Capsule PO (17:47)
[2024-07-15] MEDS: VANCOMYCIN ADD-Vantage 750 MG in 0.9% NaCl ADD-Vantage 250 ML 250 MG IV (17:48)
[2024-07-15 19:19] LABS: MRSA PCR OZH (swab) NOT DETECTED (Negative)
[2024-07-15 19:27] LABS: Bilirubin Urine Negative (Negative); Blood Urine Negative (Negative); Glucose Urine UA Negative (Normal); Ketones Urine Negative (Negative); Leukocyte Esterase Urine Negative (Negative); Nitrate Urine Negative (Negative); Protein Urine Trace (Negative); Specific Gravity, Urine 1.017 (1.005-1.030); Urine Appearance Clear (CLEAR); Urine Color Yellow (Yellow); Urobilinogen Urine 0.2 mg/dL (Negative)
[2024-07-15 19:32] LABS: Bacteria Urine None Seen /hpf; Hyaline Casts Urine 0.81 /lpf; RBC Urine 0-2 /hpf (0-2); Squamous Epithelial Cell Urine 0-5 /hpf (0-5); WBC Urine 0-5 /hpf (0-5)
[2024-07-15] MEDS: atorvastatin 40 mg Tablet 20 MG PO (20:51)
[2024-07-15] MEDS: phenazopyridine 100 mg Tablet PO (20:51)
[2024-07-15] MEDS: zolpidem 5 mg Tablet PO (23:25)
[2024-07-16] MEDS: sodium chlor 0.9% + KCl 20 mEq 20 MEQ/1,000 ML BAG 100 MEQ IV (01:58)
[2024-07-16 04:00] VITALS: BP 134/69; PULSE 80; RESP 18; TEMP 36.9; O2SAT 96
[2024-07-16] MEDS: levothyroxine 50 mcg Tablet PO (05:13)
[2024-07-16] MEDS: VANCOMYCIN ADD-Vantage 750 MG in 0.9% NaCl ADD-Vantage 250 ML 250 MG IV ×2 (05:13→16:36)
[2024-07-16] MEDS: cefTRIAXone 1,000 mg SDV 1000 MG IVP (05:13)
[2024-07-16 06:07] LABS: Basophils % 0.2 %; Eosinophils % 0.3 %; Hematocrit 33.2 % (37-53); Lymphocytes # 1.2 10^3/uL (0.8-4.8); Lymphocytes % 9.5 %; Mean Corpuscular HGB Conc 33.4 g/dL (30-55); Mean Corpuscular Hemoglobin 29.8 pg (27-33); Mean Corpuscular Volume 89.2 fl (82-101); Mean Platelet Volume 9.5 fL (7.4-10.4); Monocytes # 1.6 10^3/uL (0.2-0.9); Neutrophils # 9.48 10^3/uL (1.8-7.7); Neutrophils % 76.4 %; Nucleated Red Blood Cells % 0 %; Platelet Count 162 10^3/cmm (157-399); Red Blood Count 3.72 10^6/uL (3.85-5.65); White Blood Count 12.43 10^3/uL (3.29-11.43)
[2024-07-16 06:24] LABS: Chol HDL Ratio 3.21 mg/dL (1.0-5.00); Cholesterol 106 mg/dL (0-200); HDL Cholesterol 33 mg/dL (60-100); LDL Cholesterol Calculated 60 mg/dL (50-129); Triglycerides 63 mg/dL (0-150); VLDL Cholestrol Calculation 13 mg/dL (0-30)
[2024-07-16 06:25] LABS: Alanine Aminotransferase < 5 U/L (0-41); Albumin Level 2.9 g/dL (3.5-5.2); Alkaline Phosphatase 50 U/L (40-130); Anion Gap 17.1 (5-19); Aspartate Amino Transferase 11 U/L (0-40); Blood Urea Nitrogen 16 mg/dL (8-23); Carbon Dioxide 21 mmol/L (22-29); Chloride 94 mmol/L (98-107); Creatinine Clr Calc Pharmacy 67.2738; Globulin 2.8 g/dL (1.3-4.6); Glucose 110 mg/dL (65-115); Magnesium 1.6 mg/dL (1.7-2.3); Osmolality Calculated 268 mOsm/kg (285-295); Potassium 4.1 mmol/L (3.5-5.1); Sodium 128 mmol/L (136-145); Total Bilirubin 0.8 mg/dL (0.15-1.2); Total Protein 5.7 g/dL (6.6-8.7)
[2024-07-16 06:40] LABS: Folate Level 7.3 ng/mL (4.5-32.2)
[2024-07-16 07:23] VITALS: BP 121/61; PULSE 79; RESP 16; TEMP 38.6; O2SAT 93
[2024-07-16] MEDS: enoxaparin 40 mg/0.4 mL Syringe SUBCUT (08:33)
[2024-07-16] MEDS: docusate sodium 100 mg Capsule PO ×2 (08:33→16:36)
[2024-07-16] MEDS: phenazopyridine 100 mg Tablet PO ×3 (08:33→20:49)
[2024-07-16] MEDS: azithromycin 250 mg Tablet 500 MG PO (08:33)
[2024-07-16] MEDS: tamsulosin 0.4 mg Capsule PO (08:33)
[2024-07-16] MEDS: aspirin 81 mg EC Tablet PO (08:33)
[2024-07-16] MEDS: pantoprazole DR 40 mg Tablet PO (08:33)
[2024-07-16] MEDS: piperacillin-tazobactam 3.375 GM in sodium chloride 0.9% (plus) 50 ML IV (11:19)
[2024-07-16] MEDS: magnesium hydroxide 30 mL UDC PO ×2 (11:19→20:49)
[2024-07-16 11:33] VITALS: BP 125/60; PULSE 78; RESP 17; TEMP 38.1; O2SAT 96
[2024-07-16] MEDS: ibuprofen Oral Susp 100 mg/5mL UDC 200 MG PO ×2 (11:53→16:36)
--- NOTE | 2024-07-16 12:23 | PC.SOCIAL ---
IMM Updated Updated pt's on IMM. No questions voiced. Provided pt a copy. Initialed, dated, & timed a copy & placed in chart.
--- NOTE | 2024-07-16 13:08 | P.PN_ITS ---
Subjective 2 Subjective: No acute events overnight. Seen with at bedside. Tmax of 101.4 Fahrenheit earlier today morning. Patient denies any new complaints. Denies any dysuria but continues to have frequent urination Vitals/I&O/Wt Last Vital Signs Temp 100.5 F H 07/16/24 11:33 Pulse 78 07/16/24 11:33 Resp 17 07/16/24 11:33 BP 125/60 07/16/24 11:33 Pulse Ox 96 07/16/24 11:33 O2 Del Method Room Air 07/16/24 11:33 07/15/24 07/16/24 07/16/24 22:59 06:59 14:59 Intake Total 1490 / 1730 911.667 / 2641.667 480 / 480 Output Total 230 / 230 100 / 100 Balance 1260 / 1500 911.667 / 2411.667 380 / 380 Weight last 48 hrs Weight 89.018 kg Weight 89.086 kg Weight 81.647 kg Physical Exam 2 Narrative: General: No acute distress, AO x3, sick appearing HEENT: PERRLA, pupils bilaterally equal and reactive Chest: Normal vesicular breath sounds, no added sounds, equal good air entry bilaterally CVS: S1-S2 regular, no murmurs, no tachycardia, no gallops, no rubs Abdomen: Soft, nontender, no organomegaly, bowel sounds present Neuro: No focal deficits, no facial deformity, AO x3, power 5/5 in all limbs Data 07/16/24 05:45 07/16/24 05:45 Micro: Microbiology 07/16/24 10:34 Blood Culture - Preliminary Blood SPECIMEN COLLECTED 07/16/24 10:28 Blood Culture - Preliminary Blood SPECIMEN COLLECTED 07/14/24 20:50 Blood Culture - Preliminary Blood NEGATIVE TO DATE 07/14/24 20:52 Blood Culture - Preliminary Blood NEGATIVE TO DATE A&P Assessment and plan (1) Postoperative fever: Appreciate chest x-ray. Not on and off evidence of pneumonia on chest x-ray. Patient remains on room air. He does have leukocytosis. Not sure of what his labs were postoperatively at [facility]. Denies any diarrhea. Lower limb Doppler negative for DVT. D-dimer negative for age. Respiratory viral panel negative. Repeat UA again appreciated without having any concerns for UTI. Appreciate CT abdomen pelvis chest and lumbar spine without concern for infectious source. CT chest concerning for atelectasis. Repeat blood cultures sent today. Blood culture from admission so far negative. Given persistent dysuria cannot rule out acute bacterial prostatitis. Will repeat a UA and urine culture. Check PSA. Given concerns for prostatitis for now we will switch from IV ceftriaxone to IV meropenem 1 g every 8 hourly. Continue with vancomycin for now. MRSA swab appreciated to be negative. (2) Acute bacterial prostatitis: (3) Acute hyponatremia: Appreciate sodium level. Start oral salt tablets 1 g 3 times daily. Continue with IV fluid at 50 cc/h. (4) Status post kyphoplasty: (5) Dysuria: Start on Flomax 0.4 mg daily. Pyridium 100 mg 3 times daily (6) Hypertension: Goal blood pressure less than 140/90 mmHg. It seems patient takes lisinopril?hydrochlorothiazide along with metoprolol 100 twice daily at home. Currently blood pressure slightly soft. Hold off on antihypertensive for now. (7) Lumbar canal stenosis: (8) Pneumonia: Ruled out. Appreciate CT chest. Plan Full code Cardiac diet Protonix for PUD prophylaxis Lovenox for DVT prophylaxis PDMP PDMP Reviewed: Not Reviewed Attestations 2 Medical Necessity Statement*: Requires further hospitalization for management of postoperative fever in a patient with history of recent kyphoplasty for lumbar stenosis with concern for acute bacterial prostatitis Diagnoses Postoperative fever R50.82 Acute bacterial prostatitis N41.0 Acute hyponatremia E87.1 Status post kyphoplasty Z98.890 Dysuria R30.0 Primary hypertension I10 Hypertension type: primary hypertension Lumbar canal stenosis M48.061 Pneumonia J18.9 Laterality: bilateral Lung location: lower lobe of lung Pneumonia type: due to unspecified organism
[2024-07-16] MEDS: sodium chloride 1 gm Tablet PO ×3 (13:15→20:49)
[2024-07-16] MEDS: meropenem 1,000 mg SDV 1000 MG IVP ×2 (13:45→20:51)
[2024-07-16 13:53] LABS: Prostate Specific Antigen 0.413 ng/mL (0-4)
[2024-07-16 16:00] VITALS: BP 113/63; PULSE 69; RESP 16; TEMP 37.6; O2SAT 94
[2024-07-16 16:01] LABS: Bilirubin Urine 2+ (Negative); Blood Urine Negative (Negative); Glucose Urine UA Negative (Normal); Ketones Urine Negative (Negative); Leukocyte Esterase Urine 2+ (Negative); Nitrate Urine Positive (Negative); Protein Urine 2+ (Negative); Urine Appearance Cloudy (CLEAR)
[2024-07-16 16:06] LABS: Add Urine Microscopic? YES; Bacteria Urine None Seen /hpf; Hyaline Casts Urine 1.65 /lpf; RBC Urine 51-100 /hpf (0-2); Squamous Epithelial Cell Urine 0-5 /hpf (0-5); WBC Urine 0-5 /hpf (0-5)
[2024-07-16 16:21] LABS: UA Slide Review UA Slide Review Perf; Urine Color Orange (Yellow)
[2024-07-16] MEDS: sennosides-docusate Tablet 1 TAB PO (16:36)
[2024-07-16 20:00] VITALS: BP 105/55; PULSE 80; RESP 19; TEMP 36.8; O2SAT 95
[2024-07-16] MEDS: citalopram 20 mg Tablet PO (20:49)
[2024-07-16] MEDS: atorvastatin 40 mg Tablet 20 MG PO (20:49)
[2024-07-16] MEDS: zolpidem 5 mg Tablet PO (21:04)
[2024-07-17] VITALS: BP 120/69; PULSE 80; RESP 18; TEMP 36.5; O2SAT 92
[2024-07-17] MEDS: sodium chlor 0.9% + KCl 20 mEq 20 MEQ/1,000 ML BAG 100 MEQ IV (02:37)
[2024-07-17] MEDS: acetaminophen 325 mg Tablet 650 MG PO ×3 (02:38→19:13)
[2024-07-17 03:23] LABS: Basophils % 0.3 %; Eosinophils # 0.1 10^3/uL (0.0-0.8); Eosinophils % 1.4 %; Hematocrit 29.6 % (37-53); Lymphocytes # 1.1 10^3/uL (0.8-4.8); Lymphocytes % 10.7 %; Mean Corpuscular HGB Conc 34.1 g/dL (30-55); Mean Corpuscular Hemoglobin 29.6 pg (27-33); Mean Corpuscular Volume 86.8 fl (82-101); Monocytes # 1.3 10^3/uL (0.2-0.9); Monocytes % 12.4 %; Neutrophils # 7.58 10^3/uL (1.8-7.7); Neutrophils % 74.8 %; Nucleated Red Blood Cells % 0 %; Platelet Count 154 10^3/cmm (157-399); Red Blood Count 3.41 10^6/uL (3.85-5.65); Red Cell Distribution Width 12.5 % (12.1-15.1); White Blood Count 10.13 10^3/uL (3.29-11.43)
[2024-07-17 03:44] LABS: Magnesium 1.7 mg/dL (1.7-2.3); Vancomycin Trough 7.7 ug/mL (10-15)
[2024-07-17 03:45] LABS: Alanine Aminotransferase 6 U/L (0-41); Albumin Level 2.9 g/dL (3.5-5.2); Alkaline Phosphatase 50 U/L (40-130); Anion Gap 12.3 (5-19); Aspartate Amino Transferase 12 U/L (0-40); Blood Urea Nitrogen 16 mg/dL (8-23); Calcium 7.9 mg/dL (8.5-10.5); Carbon Dioxide 23 mmol/L (22-29); Chloride 95 mmol/L (98-107); Creatinine Clr Calc Pharmacy 75.6831; Globulin 2.2 g/dL (1.3-4.6); Glucose 109 mg/dL (65-115); Osmolality Calculated 264 mOsm/kg (285-295); Potassium 4.3 mmol/L (3.5-5.1); Sodium 126 mmol/L (136-145); Total Bilirubin 0.6 mg/dL (0.15-1.2); Total Protein 5.1 g/dL (6.6-8.7)
[2024-07-17 04:00] VITALS: BP 148/61; PULSE 87; RESP 19; TEMP 36.7; O2SAT 93
[2024-07-17] MEDS: vancomycin 1,250 MG/250 ML PIGGYBACK 166.67 MG IV (04:14)
[2024-07-17] MEDS: ibuprofen Oral Susp 100 mg/5mL UDC 200 MG PO ×4 (05:54→20:33)
[2024-07-17] MEDS: levothyroxine 50 mcg Tablet PO (05:54)
[2024-07-17] MEDS: meropenem 1,000 mg SDV 1000 MG IVP ×3 (05:54→20:35)
[2024-07-17 07:24] VITALS: BP 128/65; PULSE 79; RESP 18; TEMP 36.8; O2SAT 93
[2024-07-17] MEDS: aspirin 81 mg EC Tablet PO (08:25)
[2024-07-17] MEDS: FUROsemide 10 mg/mL SDV 2mL 20 MG IVP (08:25)
[2024-07-17] MEDS: tamsulosin 0.4 mg Capsule PO (08:26)
[2024-07-17] MEDS: pantoprazole DR 40 mg Tablet PO (08:26)
[2024-07-17] MEDS: sodium chloride 1 gm Tablet PO ×3 (08:26→20:34)
[2024-07-17] MEDS: azithromycin 250 mg Tablet 500 MG PO (08:26)
[2024-07-17] MEDS: docusate sodium 100 mg Capsule PO ×2 (08:26→17:34)
[2024-07-17] MEDS: citalopram 20 mg Tablet PO (08:26)
[2024-07-17] MEDS: sennosides-docusate Tablet 1 TAB PO ×2 (08:26→17:34)
[2024-07-17] MEDS: enoxaparin 40 mg/0.4 mL Syringe SUBCUT (08:27)
[2024-07-17 08:46] LABS: Potassium, Radom Urine 87 mmol/L; Urine Random Chloride 29 mmol/L; Urine Random Sodium 13 mmol/L
--- NOTE | 2024-07-17 08:47 | ECG_ITS ---
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
--- NOTE | 2024-07-17 11:07 | PC.CHAP ---
Pastoral Care Encounter/Spiritual Assessment Type of Contact [x] Declined equal opportunity specialist visit [] Patient/Family/Request visit [] Outpatient visit [] Follow-up visit [] Physician referral [] Code/Alert [x] Routine visit [] Staff referral [] Actively dying [] Patient sleeping [] Family support [] [] Out of room [] Palliative care [] [] Receiving care in room [] Pre-surgical visit [] Trauma [] Long length of stay [] ICU visit [] Other: Relational/Emotional Strength [] Patient feels connected with others/family/visitors/staff [] Distress [] Loneliness/isolation [] Abandonment Spirituality of Patient [] Person of Yuki [] Attends Advent of their Yuki [] Believes in Prayer [] Reads Bible or Islam materials [] There are Spiritual issues to be addressed Communications Tower Climber Interventions [] Prayer [] Active listening [] Non-anxious presence [] Spiritual/emotional support [] Crisis/trauma care [] Spiritual counseling [] Bereavement support [] Provided bereavement packet [] Provided Bible/devotional materials [] Provided toy/stuffed animal, coloring book to patient or family member [] Provided Communion [] Anointing/Raven [] Salvation [] Completed spiritual assessment [] Other: Impact on Illness or Injury [] Angry [] Fearful [] Anxious [] Often cries [] Exhaustion [] Unable to work [] Unable to attend denominational [] Unable to walk/stand [] Unable to read [] Unable to drive [] Unable to eat/drink [] Unable to sleep [] Unable to be with family [] Patient intubated [] Other: Summary Time spent with patient
[2024-07-17 11:39] VITALS: BP 142/66; PULSE 86; RESP 18; TEMP 36.6; O2SAT 94
--- NOTE | 2024-07-17 13:35 | P.PN_ITS ---
Subjective 2 Subjective: No acute events overnight. Seen with caregiver at bedside. Patient sitting in bed. Complaining of back pain. States otherwise feeling better. Has not had a fever since 4 PM yesterday in the afternoon. States being better after getting dose of Lasix. Denies any dysuria currently. Remains on room air. Vitals/I&O/Wt Last Vital Signs Temp 97.9 F 07/17/24 11:39 Pulse 86 07/17/24 11:39 Resp 18 07/17/24 11:39 BP 142/66 07/17/24 11:39 Pulse Ox 94 07/17/24 11:39 O2 Del Method Room Air 07/17/24 11:39 07/16/24 07/17/24 07/17/24 22:59 06:59 14:59 Intake Total 370 / 1889.375 250 / 2139.375 1160 / 1160 Output Total 200 / 400 800 / 800 Balance 170 / 1489.375 250 / 1739.375 360 / 360 Physical Exam 2 Narrative: General: No acute distress, AO x3, sick appearing HEENT: PERRLA, pupils bilaterally equal and reactive Chest: Normal vesicular breath sounds, no added sounds, equal good air entry bilaterally CVS: S1-S2 regular, no murmurs, no tachycardia, no gallops, no rubs Abdomen: Soft, nontender, no organomegaly, bowel sounds present Neuro: No focal deficits, no facial deformity, AO x3, power 5/5 in all limbs Data 07/17/24 03:17 07/17/24 03:17 Micro: Microbiology 07/16/24 10:34 Blood Culture - Preliminary Blood NEGATIVE TO DATE 07/16/24 10:28 Blood Culture - Preliminary Blood NEGATIVE TO DATE A&P Assessment and plan (1) Postoperative fever: Appreciate chest x-ray. Not on and off evidence of pneumonia on chest x-ray. Patient remains on room air. He does have leukocytosis. Not sure of what his labs were postoperatively at [facility]. Denies any diarrhea. Lower limb Doppler negative for DVT. D-dimer negative for age. Respiratory viral panel negative. Repeat UA again appreciated without having any concerns for UTI. Appreciate CT abdomen pelvis chest and lumbar spine without concern for infectious source. CT chest concerning for atelectasis. Repeat blood cultures sent today. Blood culture from admission so far negative. Given persistent dysuria cannot rule out acute bacterial prostatitis. Will repeat a UA and urine culture. Check PSA. Given concerns for prostatitis for now we will switch from IV ceftriaxone to IV meropenem 1 g every 8 hourly. Continue with vancomycin for now. MRSA swab appreciated to be negative. (2) Acute bacterial prostatitis: (3) Acute hyponatremia: Appreciate sodium level. Start oral salt tablets 1 g 3 times daily. Continue with IV fluid at 50 cc/h. (4) Status post kyphoplasty: (5) Dysuria: Start on Flomax 0.4 mg daily. Pyridium 100 mg 3 times daily (6) Hypertension: Goal blood pressure less than 140/90 mmHg. It seems patient takes lisinopril?hydrochlorothiazide along with metoprolol 100 twice daily at home. Currently blood pressure slightly soft. Hold off on antihypertensive for now. (7) Lumbar canal stenosis: (8) Pneumonia: Ruled out. Appreciate CT chest. Plan Full code Cardiac diet Protonix for PUD prophylaxis Lovenox for DVT prophylaxis Plan for the day: Leukocytosis has resolved. Patient has not had a fever over last 24 hours. Continue to monitor blood cultures, urine culture. Continue to monitor for fevers and leukocytosis. For now continue with empiric meropenem. Discontinue vancomycin as MRSA swab negative. Appreciate scans for chest abdomen pelvis and lumbar spine. Continue azithromycin to finish a 3-day course. Sodium level down to 126 today. Check urine lites. Continue with salt tablets. Stop IV fluids. IV 20 mg Lasix one-time. Repeat BMP in afternoon. Discharge plan: Plan to discharge back home within next 24 hours if patient blood cultures and urine culture remained negative with slight improvement in sodium levels. PDMP PDMP Reviewed: Not Reviewed Attestations 2 Medical Necessity Statement*: Requires further hospitalization for management of postoperative fever in a patient who underwent lumbar kyphoplasty at outside hospital with concerns for possible prostatitis, hyponatremia Diagnoses Postoperative fever R50.82 Acute bacterial prostatitis N41.0 Acute hyponatremia E87.1 Status post kyphoplasty Z98.890 Dysuria R30.0 Primary hypertension I10 Hypertension type: primary hypertension Lumbar canal stenosis M48.061 Pneumonia J18.9 Laterality: bilateral Lung location: lower lobe of lung Pneumonia type: due to unspecified organism
[2024-07-17 15:36] VITALS: BP 151/64; PULSE 78; RESP 18; TEMP 36.6; O2SAT 96
[2024-07-17 15:46] LABS: Blood Urea Nitrogen 16 mg/dL (8-23); Carbon Dioxide 25 mmol/L (22-29); Chloride 92 mmol/L (98-107); Creatinine Clr Calc Pharmacy 75.6831; Glucose 104 mg/dL (65-115); Osmolality Calculated 265 mOsm/kg (285-295); Sodium 127 mmol/L (136-145)
[2024-07-17 19:21] VITALS: BP 151/71; PULSE 92; RESP 17; TEMP 36.8; O2SAT 96
[2024-07-17] MEDS: FUROsemide 10 mg/mL SDV 4mL 40 MG IVP (20:33)
[2024-07-17] MEDS: atorvastatin 40 mg Tablet 20 MG PO (20:34)
[2024-07-17] MEDS: zolpidem 5 mg Tablet PO (20:36)
[2024-07-18] VITALS: BP 135/73; PULSE 87; RESP 18; TEMP 36.8; O2SAT 95
[2024-07-18 04:00] VITALS: BP 141/62; PULSE 96; RESP 17; TEMP 36.8; O2SAT 94
[2024-07-18] MEDS: ibuprofen Oral Susp 100 mg/5mL UDC 200 MG PO (05:03)
[2024-07-18] MEDS: levothyroxine 50 mcg Tablet PO (05:03)
[2024-07-18] MEDS: meropenem 1,000 mg SDV 1000 MG IVP (05:03)
[2024-07-18 05:39] LABS: Basophils # 0.1 10^3/uL (0.0-0.1); Basophils % 0.5 %; Eosinophils # 0.3 10^3/uL (0.0-0.8); Hematocrit 34.9 % (37-53); Lymphocytes % 9.7 %; Mean Corpuscular HGB Conc 33.5 g/dL (30-55); Mean Corpuscular Hemoglobin 29.5 pg (27-33); Mean Corpuscular Volume 87.9 fl (82-101); Mean Platelet Volume 9.3 fL (7.4-10.4); Monocytes # 1.3 10^3/uL (0.2-0.9); Monocytes % 12.3 %; Neutrophils # 7.66 10^3/uL (1.8-7.7); Neutrophils % 74.1 %; Nucleated Red Blood Cells % 0 %; Platelet Count 211 10^3/cmm (157-399); Red Blood Count 3.97 10^6/uL (3.85-5.65); Red Cell Distribution Width 12.4 % (12.1-15.1); White Blood Count 10.33 10^3/uL (3.29-11.43)
[2024-07-18 06:13] LABS: Alanine Aminotransferase 10 U/L (0-41); Albumin Level 3.2 g/dL (3.5-5.2); Alkaline Phosphatase 63 U/L (40-130); Aspartate Amino Transferase 19 U/L (0-40); Blood Urea Nitrogen 13 mg/dL (8-23); Calcium 8.4 mg/dL (8.5-10.5); Carbon Dioxide 22 mmol/L (22-29); Creatinine Clr Calc Pharmacy 75.6831; Globulin 2.7 g/dL (1.3-4.6); Glucose 103 mg/dL (65-115); Total Bilirubin 0.9 mg/dL (0.15-1.2); Total Protein 5.9 g/dL (6.6-8.7)
[2024-07-18 06:29] LABS: Anion Gap 18.1 (5-19); Chloride 91 mmol/L (98-107); Osmolality Calculated 264 mOsm/kg (285-295); Potassium 4.1 mmol/L (3.5-5.1); Sodium 127 mmol/L (136-145)
[2024-07-18 06:47] LABS: Magnesium 1.7 mg/dL (1.7-2.3)
[2024-07-18 07:34] VITALS: BP 155/80; PULSE 101; RESP 18; TEMP 36.8; O2SAT 92
--- NOTE | 2024-07-18 08:28 | P.DS_ITS ---
Discharge Providers Date of Admission: 07/15/24 02:58 Date of Discharge: July 18, 2024 Attending Provider at Admission: Alex Perkins MD Attending Provider at Discharge: Tyrese Khan MD Primary Care Provider: Adi Walters MD Diagnoses at Discharge Discharge Diagnosis (1) Postoperative fever: Status: Acute (2) Acute bacterial prostatitis: Status: Suspected (3) Acute hyponatremia: Status: Acute (4) Status post kyphoplasty: Status: Acute Permanent problem details: At [facility] on 07/13 (5) Dysuria: Status: Acute (6) Hypertension: Status: Acute Qualifiers: Hypertension type: primary hypertension Qualified Code(s): I10 - Essential (primary) hypertension (7) Lumbar canal stenosis: Status: Acute (8) Pneumonia: Status: Ruled-out Qualifiers: Laterality: bilateral Lung location: lower lobe of lung Pneumonia type: due to unspecified organism Qualified Code(s): J18.9 - Pneumonia, unspecified organism Reason for Visit Reason for Visit: fever chills post surg yesterday Brief History: History as per HPI: Joe Nowak is a 83 year old male who had surgery at [facility] Friday spent the night and went home on Friday but by Friday evening was having fevers cough and temperature 101.7. He has had trouble voiding urine white count found to be 17,000 temp 101.7 chest x-ray shows bibasilar infiltrates and sodium was 129 down from 136. Patient tends to run borderline hyponatremic on our labs all the time. Patient states his back is not particularly painful in the setting of postoperative course day 2 Hospital Course Hospital Course Patient was admitted to the hospital for evaluation and management of postoperative fevers. He was started on empiric broad-spectrum IV antibiotics. Multiple etiologies for fever were ruled out. He underwent CT chest abdomen pelvis along with back which were negative for acute abnormalities. Multiple UAs were negative for UTI. Respiratory viral panel was negative. Patient did complain of dysuria on and off because of which there was a concern for possible prostatitis. Eventually on IV antibiotics his his leukocytosis resolved and he has been afebrile for last for 48 hours. He was found to have hyponatremia on admission which at first was in setting of dehydration for which he was started on IV fluids. During hospitalization his salt levels remained stable. He started on oral salt tablets. He has been discharged in hemodynamically stable condition on oral Augmentin and Levaquin for next 4 days, oral Flomax 0.4 mg daily. His home dose of metoprolol has been decreased to 50 mg twice daily, hydrochlorothiazide has been discontinued. He has been advised to follow-up with a primary care provider within next 1 week for repeat sodium level. Physical Exam Narrative: General: No acute distress, AO x3, sick appearing HEENT: PERRLA, pupils bilaterally equal and reactive Chest: Normal vesicular breath sounds, no added sounds, equal good air entry bilaterally CVS: S1-S2 regular, no murmurs, no tachycardia, no gallops, no rubs Abdomen: Soft, nontender, no organomegaly, bowel sounds present Neuro: No focal deficits, no facial deformity, AO x3, power 5/5 in all limbs Discharge Data Studies Completed and Pending Completed Studies During Hospitalization Category Date Time Status CT chest abdpel w/*[id number] Routine Cat Scan 07/15/24 10:30 Completed XR chest 1V portable [id number] Stat Exams 07/14/24 19:19 [place] [id number] Routine Ultrasound 07/15/24 16:05 Completed Pending at discharge Category Date Time Status Blood Culture Stat Lab 07/14/24 20:50 Results Blood Culture Stat Lab 07/16/24 10:34 Results Urine Culture Stat Lab 07/16/24 15:40 Received Radiology Impressions Chest X-Ray 07/14/24 19:19 IMPRESSION: Bibasilar reticular opacities that might represent atelectasis versus infiltrates. Chest/Abdomen/Pelvis CT 07/15/24 10:30 IMPRESSION: Mild posterior subsegmental atelectasis. Otherwise, no obvious acute intrathoracic abnormality identified. IMPRESSION: 1. No definite acute abnormality identified within the peritoneal cavity or retroperitoneum. No evidence of intra-abdominal abscess or bowel obstruction. 2. CT lumbar spine performed and reported separately. Please refer to that report for additional findings. Lumbar Spine CT 07/15/24 10:30 IMPRESSION: 1. There is evidence of recent posterior lumbar surgery at the L3 level with expected postoperative gas and fluid at the operative site. The findings are not specific for the presence of postoperative infection. 2. Multilevel lumbar spinal stenosis. Venous Duplex 07/15/24 16:05 IMPRESSION: No evidence of deep vein thrombosis. Microbiology 07/16/24 15:40 Urine Ureter Urine Culture - Final 07/16/24 10:34 Blood Blood Culture - Preliminary NEGATIVE TO DATE 07/16/24 10:28 Blood Blood Culture - Preliminary NEGATIVE TO DATE 07/14/24 20:50 Blood Blood Culture - Preliminary NEGATIVE TO DATE 07/14/24 20:52 Blood Blood Culture - Preliminary NEGATIVE TO DATE Laboratory Results WBC 10.33 10^3/uL (3.29-11.43) 07/18/24 05:25 RBC 3.97 10^6/uL (3.85-5.65) 07/18/24 05:25 Hgb 11.70 g/dL (11.27-16.99) 07/18/24 05:25 Hct 34.9 % (37-53) L 07/18/24 05:25 MCV 87.9 fl (82-101) 07/18/24 05:25 MCH 29.5 pg (27-33) 07/18/24 05:25 MCHC 33.5 g/dL (30-55) 07/18/24 05:25 RDW 12.4 % (12.1-15.1) 07/18/24 05:25 Plt Count 211 10^3/cmm (157-399) D 07/18/24 05:25 MPV 9.3 fL (7.4-10.4) 07/18/24 05:25 Neut % (Auto) 74.1 % 07/18/24 05:25 Lymph % (Auto) 9.7 % 07/18/24 05:25 [place] % (Auto) 12.3 % 07/18/24 05:25 Eos % (Auto) 3.0 % 07/18/24 05:25 Baso % (Auto) 0.5 % 07/18/24 05:25 Neut # (Auto) 7.66 10^3/uL (1.8-7.7) 07/18/24 05:25 Lymph # (Auto) 1.0 10^3/uL (0.8-4.8) 07/18/24 05:25 [place] # (Auto) 1.3 10^3/uL (0.2-0.9) H 07/18/24 05:25 Eos # (Auto) 0.3 10^3/uL (0.0-0.8) 07/18/24 05:25 Baso # (Auto) 0.1 10^3/uL (0.0-0.1) 07/18/24 05:25 Nucleated RBC % (auto) 0 % 07/18/24 05:25 Nucleated RBCs # 0.0 /100WBC 07/18/24 05:25 ESR 9 mm/hr (0-10) 07/14/24 20:52 D-Dimer 0.72 ug/mLFEU (0-0.59) H 07/15/24 16:24 Sodium 127 mmol/L (136-145) L 07/18/24 05:25 Potassium 4.1 mmol/L (3.5-5.1) 07/18/24 05:25 Chloride 91 mmol/L (98-107) L 07/18/24 05:25 Carbon Dioxide 22 mmol/L (22-29) 07/18/24 05:25 Anion Gap 18.1 (5-19) 07/18/24 05:25 BUN 13 mg/dL (8-23) 07/18/24 05:25 Creatinine 0.7 mg/dL (0.7-1.2) 07/18/24 05:25 GFR Calculation Not Reportable 07/18/24 05:25 Glucose 103 mg/dL (65-115) 07/18/24 05:25 Estimat Average Glucose 117 07/15/24 04:24 Hemoglobin A1c 5.7 % (4.0-6.0) 07/15/24 04:24 Calculated Osmolality 264 mOsm/kg (285-295) L 07/18/24 05:25 Lactic Acid 1.1 mmol/L (0.5-2.2) 07/14/24 20:50 Calcium 8.4 mg/dL (8.5-10.5) L 07/18/24 05:25 Magnesium 1.7 mg/dL (1.7-2.3) 07/18/24 05:25 Iron 19 ug/dL (59-158) L 07/15/24 04:24 TIBC 267 mcg/dl 07/15/24 04:24 % Saturation 7.1 % (20-50) L 07/15/24 04:24 Unsat Iron Binding 248 ug/dL (112-347) 07/15/24 04:24 Total Bilirubin 0.9 mg/dL (0.15-1.2) 07/18/24 05:25 AST 19 U/L (0-40) 07/18/24 05:25 ALT 10 U/L (0-41) 07/18/24 05:25 Alkaline Phosphatase 63 U/L (40-130) 07/18/24 05:25 C-Reactive Protein 40.3 mg/L (0.0-4.9) H 07/14/24 20:50 Total Protein 5.9 g/dL (6.6-8.7) L 07/18/24 05:25 Albumin 3.2 g/dL (3.5-5.2) L 07/18/24 05:25 Globulin 2.7 g/dL (1.3-4.6) 07/18/24 05:25 Triglycerides 63 mg/dL (0-150) 07/16/24 05:45 Cholesterol 106 mg/dL (0-200) 07/16/24 05:45 LDL Cholesterol, Calc 60 mg/dL (50-129) 07/16/24 05:45 Total VLDL Cholesterol 13 mg/dL (0-30) 07/16/24 05:45 HDL Cholesterol 33 mg/dL (60-100) L 07/16/24 05:45 Cholesterol/HDL Ratio 3.21 mg/dL (1.0-5.00) 07/16/24 05:45 Prostate Specific Ag 0.413 ng/mL (0-4) 07/16/24 05:45 Vitamin B12 289 pg/mL (232-1245) 07/15/24 04:24 Folate 7.3 ng/mL (4.5-32.2) 07/16/24 05:45 Procalcitonin 0.14 ng/mL (0-0.5) 07/15/24 04:24 TSH 1.70 uIU/mL (0.27-4.20) 07/15/24 04:24 Urine Color [place] (Yellow) A 07/16/24 15:40 Urine Appearance Cloudy (CLEAR) A 07/16/24 15:40 Urine pH 5.0 (5-7) 07/16/24 15:40 Ur Specific [place] 1.040 (1.005-1.030) H 07/16/24 15:40 Urine Protein 2+ (Negative) A 07/16/24 15:40 Urine Glucose (UA) Negative (Normal) 07/16/24 15:40 Urine Ketones Negative (Negative) 07/16/24 15:40 Urine Blood Negative (Negative) 07/16/24 15:40 Urine Nitrate Positive (Negative) A 07/16/24 15:40 Urine Bilirubin 2+ (Negative) H 07/16/24 15:40 Urine Urobilinogen 1.0 mg/dL (Negative) 07/16/24 15:40 Ur Leukocyte Esterase 2+ (Negative) A 07/16/24 15:40 Urine RBC 51-100 /hpf (0-2) H 07/16/24 15:40 Urine WBC 0-5 /hpf (0-5) 07/16/24 15:40 Ur Squamous Epith Cells 0-5 /hpf (0-5) 07/16/24 15:40 Amorphous Sediment Not Reportable 07/16/24 15:40 Urine Bacteria None seen /hpf (NONE) 07/16/24 15:40 Hyaline Casts 1.65 /lpf 07/16/24 15:40 Ur Random Sodium 13 mmol/L 07/16/24 15:40 Ur Random Potassium 87 mmol/L 07/16/24 15:40 Ur Random Chloride 29 mmol/L 07/16/24 15:40 Nasal MRSA (PCR) Not detected (Negative) 07/15/24 17:57 Vancomycin Trough 7.7 ug/mL (10-15) L 07/17/24 03:17 Adenovirus (PCR) Not detected (NOT DETECT) 07/15/24 10:40 C. pneumoniae DNA (PCR) Not detected (NOT DETECT) 07/15/24 10:40 Coronavirus 229E (PCR) Not detected (NOT DETECT) 07/15/24 10:40 Human Metapneumovir PCR Not detected (NOT DETECT) 07/15/24 10:40 Influenza A (H1) PCR Not detected (NOT DETECT) 07/15/24 10:40 Influenza A (PCR) Negative (Negative) 07/15/24 00:47 Influ A (H1/09) PCR Not detected (NOT DETECT) 07/15/24 10:40 Influenza A (H3) PCR Not detected (NOT DETECT) 07/15/24 10:40 Influenza Type A (PCR) Not detected (NOT DETECT) 07/15/24 10:40 Influenza Type B (PCR) Not detected (NOT DETECT) 07/15/24 10:40 M. pneumoniae (PCR) Not detected (NOT DETECT) 07/15/24 10:40 Parainfluenza 1 (PCR) Not detected (NOT DETECT) 07/15/24 10:40 Parainfluenza 2 (PCR) Not detected (NOT DETECT) 07/15/24 10:40 Parainfluenza 3 (PCR) Not detected (NOT DETECT) 07/15/24 10:40 Parainfluenza 4 (PCR) Not detected (NOT DETECT) 07/15/24 10:40 RSV (PCR) Negative (Negative) 07/15/24 00:47 RSV Type A (PCR) Not detected (NOT DETECT) 07/15/24 10:40 RSV Type B (PCR) Not detected (NOT DETECT) 07/15/24 10:40 Entero/Rhino (PCR) Not detected (NOT DETECT) 07/15/24 10:40 SARS-CoV-2 (PCR) Not detected (NOT DETECT) 07/15/24 10:40 Vitals Last Vital Signs Temp 98.2 F 07/18/24 07:34 Pulse 101 H 07/18/24 07:34 Resp 18 07/18/24 07:34 BP 155/80 07/18/24 07:34 Pulse Ox 92 07/18/24 07:34 O2 Del Method Room Air 07/18/24 07:34 Discharge Plan Discharge Patient Disposition: Home Condition: Stable Prescriptions: New sodium chloride 1,000 mg Tablet,Soluble 1,000 mg PO TID Qty: 14 0RF tamsulosin 0.4 mg Capsule 0.4 mg PO DAILY 30 Days Qty: 30 0RF lisinopril 20 mg tablet 20 mg PO DAILY Qty: 30 0RF metoprolol tartrate 50 mg tablet 50 mg PO BID Qty: 60 0RF levofloxacin 750 mg tablet 750 mg PO Q24H 7 Days Qty: 7 0RF amoxicillin-pot clavulanate 875-125 mg tablet 1 tab PO BID 5 Days Qty: 10 0RF Continued citalopram [Celexa] 20 mg tablet 20 mg PO DAILY simvastatin 20 mg Tablet 20 mg PO BEDTIME aspirin 81 mg Tablet,Delayed Release (Dr/Ec) 81 mg PO DAILY PreserVision AREDS-2 250-90-40-1 mg Capsule 1 tab PO BID omeprazole 20 mg capsule,delayed release(/EC) 20 mg PO BID Qty: 0 0RF levothyroxine 50 mcg tablet 50 mcg PO QAM methocarbamol 500 mg tablet 500 mg PO QID PRN (Reason: Muscle Spasm) docusate sodium 100 mg capsule 100 mg PO BID oxycodone 5 mg tablet 5 mg PO Q6H PRN (Reason: Pain) Discontinued metoprolol tartrate 100 mg tablet 100 mg PO BID lisinopril-hydrochlorothiazide 20-25 mg tablet 1 tab PO DAILY Discharge Orders: Discharge Order (Routine); Ordered 07/18/24 Ordered By: Tyrese Khan Referrals: Adi Walters MD [Primary Care Provider, [facility]] - 4-7 days Referral Note: You will need to contact your primary care provider tomorrow with a hospital discharge follow up in 4-7 days. Discharge Diet: Cardiac Discharge Activity: Resume usual activity and Increase activity as tolerated Patient Instructions: Metoprolol (By mouth), Lisinopril (By mouth), Amoxicillin/Clavulanate Potassium (By mouth), Levofloxacin (By mouth), Tamsulosin (By mouth), Sodium Chloride (By mouth), Dysuria - Male, Opioid Safety Activity Restrictions/Additional Instructions: Get dose of blood pressure medications have been changed. Do not take the combination of lisinopril/hydrochlorothiazide anymore. Instead take lisinopril 20 mg daily. Dose of metoprolol has been changed to 50 mg twice daily. Take salt tablets 3 times a day for the next 5 days. Take Augmentin and Levaquin which are the antibiotics for the next 5 days. Please follow-up with a primary care provider within next 5 days for repeat BMP. Please follow-up with your orthopedic surgeon as scheduled. Continue with physical therapy. Flomax has been added to your medication list for BPH. Discharge Attestations Time Spent in Discharge Care*: greater than 30 min Specific Discharge Activities: educating patient, educating and/or supporting family/caregiver, discussing with pcp/other providers, discussing with special education case manager/social workers/dc planners, documenting/other paperwork and evaluating patient/reviewing data Status at Discharge: Cognitive status at discharge: cognitively intact , Behavioral status at discharge: cooperative , Functional status at discharge: independent ambulation , Overall status at discharge: patient is back to baseline Quality Metrics Clinical Quality Measures [ No reported AMI, CVA or VTE this stay] Coding Level of Care Code 69575 Total time (in minutes) for Discharge: 65 Diagnoses Postoperative fever R50.82 Acute bacterial prostatitis N41.0 Acute hyponatremia E87.1 Status post kyphoplasty Z98.890 Dysuria R30.0 Primary hypertension I10 Hypertension type: primary hypertension Lumbar canal stenosis M48.061 Pneumonia J18.9 Laterality: bilateral Lung location: lower lobe of lung Pneumonia type: due to unspecified organism
[2024-07-18] MEDS: aspirin 81 mg EC Tablet PO (08:32)
[2024-07-18] MEDS: azithromycin 250 mg Tablet 500 MG PO (08:32)
[2024-07-18] MEDS: pantoprazole DR 40 mg Tablet PO (08:32)
[2024-07-18] MEDS: enoxaparin 40 mg/0.4 mL Syringe SUBCUT (08:32)
[2024-07-18] MEDS: sodium chloride 1 gm Tablet PO (08:32)
[2024-07-18] MEDS: citalopram 20 mg Tablet PO (08:32)
[2024-07-18] MEDS: tamsulosin 0.4 mg Capsule PO (08:32)
[2024-07-18] MEDS: acetaminophen 325 mg Tablet 650 MG PO (08:33)
[2024-07-18 11:12] VITALS: BP 152/66; PULSE 100; RESP 18; TEMP 36.8; O2SAT 95
[2024-07-18 11:33] VITALS: BP 152/66; PULSE 100; O2SAT 95
== END 2024-07-18 11:33 | disposition home or self-care (01) | DRG 728 ==
LOC: ER 07-15 04:11 → ER IP 07-15 04:46 → MEDSURG 07-15 09:48
PROVIDERS: Nurse Practitioner; Admitting Provider Internal Medicine; Emergency Provider Emergency Medicine; PCP Family Medicine; Visit Provider Student in an Organized Health Care Education/Training Program
DX: N41.0 Acute prostatitis (principal); E87.1 Hypo-osmolality and hyponatremia; B96.89 Other specified bacterial agents as the cause of diseases classified elsewhere; E86.0 Dehydration; R30.0 Dysuria; I10 Essential (primary) hypertension; E78.5 Hyperlipidemia, unspecified; K21.9 Gastro-esophageal reflux disease without esophagitis; Z98.890 Other specified postprocedural states; Z87.891 Personal history of nicotine dependence
CPT/HCPCS: 36415; 51702; 51798; 71045; 71260; 74177; 80048; 80053; 80061; 80202; 81001; 82436; 82607; 82746; 83036; 83540; 83550; 83605; 83735; 84133; 84145; 84153; 84300; 84443; 85025; 85378; 85651; 86140; 87040; 87086; 87486; 87581; 87633; 87637; 93005; 93970; 96372; 97116; 97161; 97166; 97530; 97535; 99285; J0456; J0692; J0696; J1650; J1938; J2185; J2270; J2405; J2543; J3370; J3480; J7030; J7050; J9999; Q0144

== ENCOUNTER 2024-08-22 14:11 | Emergency (ER) | payer MEDICARE, OTHER, SELFPAY ==
--- OUTSIDE RECORDS SUMMARY | 2024-03-30 10:00 | XMS_ITS ---
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 Office visit. * Medical History: Objective: Therapeutic Interventions: Assessment: Plan: * Treatment: * Images: * Electronic signature of Gilberto Bowden MD on 08/22/2024 at 02:15 PM CDT Sign off status: Pending * Provider: Shawna Bowden Date: 03/30/2024 Generated for Joi vimal/Luis/eTransmitting on: 0 08/22/2024 02:15 PM CDT
--- OUTSIDE RECORDS SUMMARY | 2024-08-22 14:15 | XMS_ITS | Encounter Summary ---
Author Organization [facility] Address [address] [place] [address] Care Team Providers Care Automotive Airconditioning Mechanic Name Role Phone Unavailable Primary Care Provider Unavailabl e Encounter Details Date Type Department Care Team (Late st Contact Info) Description 12/29/2002 Outpatient Historical [facility] Emerson, Lul Arana MD [address] [phone] SURGERY FOLLOWUP, UNSPEC (Primary Dx) Social History Tobacco Use Types Packs/Day Years Used Date Smoking Tobacco: Never Assessed Sex and Gender Information Value Date Recorded Sex Assigned at Not on file Legal 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
--- OUTSIDE RECORDS SUMMARY | 2024-08-22 14:15 | XMS_ITS | Patient Health Record ---
Author Organization [facility] Address [address] [place], [place] [address] Care Team Providers Care Transit Proof Machine Operator Name Role Phone Selena MARCH, Alex Primary Care Provider Dennise MARCH, Shawn Unavailable [phone] Melgoza LOG LOADER, Radha Unavailable [phone] Allergies No Known Allergies Results Component Value Reference Range Notes X-ray: Lumbar spine, flexion /extension views (please comment on presence or absence of spinal instability) ([id number]) Reviewed date:01/06/2024 06:43:04 AM Interpretation: Performing Lab: Notes/Report: Urine tox screen / MS if ind icated Reviewed date:01/05/2024 11:22:01 AM Interpretation:Consistent Performing Lab: Notes/Report: Consistent Reason For Referral Reason Low back pain Diagnosis 1 Low back pain, unspe cified (M54.50) Referring Provider First Name Alex Referring Provider Last Name Selena [facility]erring Provider [facility]erred Organization [facility] Referred Provider Shawn Bowden Referred Address [address] [place], [id number], Referred Provider Specialty Pain Managem ent General Notes Rochelle Ralph 04:03:38 PM >Sent for insurance verification. Need SSN also., Josey Beth 12/02/2023 03:56:41 PM > active. no copay. Referral Priority Routine Medications Medication SIG (Take, Route, Frequency, Duration) Notes Start Date End Date Status levothyroxine 50 mcg (0.05 mg) 1 tab(s) orally once a day Active Ocuvite Eye + Multi Antioxidant Multiple Vitamins and Minerals as directed orally Active Metoprolol Tartrate 100 mg 1 tab(s) orally 2 times a day Active hydrochlorothiazide-li sinopril 25 mg-20 mg 1 tab(s) orally once a day Active Glucosamine Chondroitin Active latanoprost ophthalmic 0.005% 1 gtt in each eye once a day (in the evening) Active ibuprofen 200 mg 1 tab(s) orally every 6 hours, as needed Active acetaminophen 500 mg 1- orally every 6 hours, as needed Active predniSONE 20 mg 1 tab(s) orally once a day as directed for 5 days 12/31/2023 Active omeprazole 20 mg 1 cap(s) orally once a day Active citalopram 20 mg 1 tab(s) orally once a day Active Aleve Back and Muscle Pain sodium 220 mg 1 tab(s) orally every 12 hours Active simvastatin 20 mg 1 tab(s) orally once a day (in the evening) Active Social History Tobacco Use: Social History Observation Description Date Details (start date - stop date) Former Smoker NA - NA Tobacco use: Question Answer Notes Additional Findings: Tobacco User Chews tobacco 1/4 can a day for 60 years (1963) : former smoker How long has it been since y ou last smoked? 1993 AUDIT-C (Standard) Question Answer Notes Did you have a drink containing alcohol in the p ast year? 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 (Z79.899) Active confirmed Problem Spinal stenosis of lumbar region (44812736) Spinal stenosis, lumbar region without neurogenic claudication (M48.061) Active confirmed Problem Low back pain (447291872) Low back pain, unspecified (M54.50) Active confirmed Problem Vertebrogenic low back pain (4140751241702418 01) Vertebrogenic low back pain (M54.51) Active confirmed Vital Signs Temperature 98.0 degrees Fahrenheit 01/14/2024 Oximetry 96 % 01/14/2024 Blood pressure diastolic 71 mm Hg 01/14/2024 Height 67 in 01/14/2024 Blood pressure systolic 142 mm Hg 01/14/2024 Weight 193.2 lbs 01/14/2024 BMI 30.26 kg/m2 01/14/2024 Encounters Encounter Location Date [facility] [email or web address] [place], [place] [id number] 01/05/2024 Radha Melgoza Vertebrogenic low ba ck pain M54.51 ; Spondylosis without myelopathy or radiculopathy, lumbar region M47.816 ; Sacroiliitis, not elsewhere classified M46.1 ; Spinal stenosis, lumbar region without neurogenic claudication M48.061 ; Other sleep disorders G47.8 and Other chcf (current) drug therapy Z79.899 [facility] [address] [place], [place] [phone] 01/14/2024 Shawn Bowden Vertebrogenic low ba ck pain M54.51 and Other chcf (current) drug therapy Z79.899 Assessments Encounter Date Diagnosis (ICD Code) Assessment Notes Treatment Notes Treatment Clinical Notes Section Notes 01/14/2024 Other termite control technician (current) drug therapy (ICD-10 - Z79.899) Patient was given a copy of the Treatment Agreement, signed by patient on 12/15/23. 2022 opioid (OUD) risk tool score = 0. This places the patient in the low risk category. Patient has shown no interest in medication management for his pain. RADIOLOGIST'S IMPRESSION OF L-SPINE X-RAY ON 01/05/24: 1. Very slight degenerative anterolisthesis of L4 on L5 which does not change during flexion and extension. No other sign of instability. 2. Degenerative changes as detailed in the report. 01/14/2024 Vertebrogenic low back pain (ICD-10 - M54.51) Patient again reports that Dr. Walters has worked on approval for lumbar spine MRI in [place] that will be compatible with his cochlear implants: appointment is scheduled for January 20. Patient completed lumbar spine x-rays: reviewed with patient. [address] report reviewed with patient in detail. Recommended patient follow up at this facility after completion of the scheduled MRI. Discussed SCS therapy with patient: verbal and written information provided patient at 01/14/24 visit. RADIOLOGIST'S IMPRESSION OF L-SPINE X-RAY ON 01/05/24: 1. Very slight degenerative anterolisthesis of L4 on L5 which does not change during flexion and extension. No other sign of instability. 2. Degenerative changes as detailed in the report. 01/05/2024 Spondylosis without myelopathy or radiculopathy, lumbar region (ICD-10 - M47.816) Consider interventional treatment pending evaluation by Dr. Bowden. 01/05/2024 Vertebrogenic low back pain (ICD-10 - M54.51) Patient reports that Dr. Walters is working on approval for lumbar spine MRI in [place] that will be compatible with his cochlear implants. Plan completion of lumbar spine x-rays locally in the interim. Consider treatment options pending outcome of imaging studies and evaluation by Dr. Bowden. 01/05/2024 Sacroiliitis, not elsewhere classified (ICD-10 - M46.1) Consider interventional treatment pending evaluation by Dr. Bowden. 01/05/2024 Spinal stenosis, lumbar region without neurogenic claudication (ICD-10 - M48.061) Consider interventional treatment pending evaluation by Dr. Bowden. 01/05/2024 Other sleep disorders (ICD-10 - G47.8) Patient with history of snoring and hypersomnia via sleep apnea sceening measure ([place] score = 11). Consider a sleep study. 01/05/2024 Other chcf (current) drug therapy (ICD-10 - Z79.899) Patient was given a copy of the Treatment Agreement, signed by patient on 12/15/23. 2022 opioid (OUD) risk tool score = 0. This places the patient in the low risk category. Plan urine toxicology screen today in anticipation of possibly starting opioid therapy at future visit as well as to assess for any prescribed, unprescribed, and / or illicit controlled substance(s). 01/14/2024 Other RADIOLOGIST'S IMPRESSION OF L-SPINE X-RAY ON 01/05/24: 1. Very slight degenerative anterolisthesis of L4 on L5 which does not change during flexion and extension. No other sign of instability. 2. Degenerative changes as detailed in the report. 01/05/2024 Other Case reviewed, treatment plan approved, and visit note edited by Dr. Bowden. Plan Of Treatment No Information Insurance Providers Payer Name Payer Address Payer Phone Subscriber Number Group Number Insured Name Patient Relationship to Insured Coverage Start Date Coverage End Date [employer] Medicare Part B Claims Department [address] [address] [place] [address] [id number] Joe Nowak Self - patient is the insured [employer] [facility] Claims Dept [address] [place] [id number] Joe Nowak Self - patient is the insured Medical (General) History Medical History History ICD Code Chronic pain Low back pain Lumbar spondylosis, disc dis ease, multilevel spinal stenosis, and slight spondylolisthesis Right sided sciatica Lumbar radiculopathy Shoulder joint pain, injection therapy Pain in left arm Hypothyroidism Hypercholesterolemia Glaucoma Atrial fibrillation Dyspnea on exertion Hypertension Diverticulosis Sleep disorder with snoring (hypersomnia as per sleep apnea screening measure) Surgical History Surgery Date(Month/Year) Colonoscopy by Dr. Walters, 05/20/12 Implant cochlear device 2, p erformed in [facility] in [place], [place], 2013, 2019, Carpal tunnel release, 2019 Hernia repair, 02/06/22 Hospitalization History Reason Date(Month/Year) Diverticulitis x 2
--- OUTSIDE RECORDS SUMMARY | 2024-08-22 14:15 | XMS_ITS | Encounter Summary ---
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
--- OUTSIDE RECORDS SUMMARY | 2024-08-22 14:15 | XMS_ITS | Clinical Summary ---
Author Organization [facility] Address [address] 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
--- OUTSIDE RECORDS SUMMARY | 2024-08-22 14:15 | XMS_ITS | Encounter Summary ---
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
--- OUTSIDE RECORDS SUMMARY | 2024-08-22 14:15 | XMS_ITS | Encounter Summary ---
Author Organization [facility] Address [address] [place] [address] Care Team Providers Care Room Service Associate Name Role Phone Unavailable Primary Care Provider Unavailabl e Encounter Details Date Type Department Care Team (Late st Contact Info) Description 05/16/2003 Outpatient Historical [facility] Emerson, Lul Arana MD [address] [phone] SURGERY FOLLOWUP, UNSPEC (Primary Dx) Social History Tobacco Use Types Packs/Day Years Used Date Smoking Tobacco: Never Assessed Sex and Gender Information Value Date Recorded Sex Assigned at Not on file 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
--- OUTSIDE RECORDS SUMMARY | 2024-08-22 14:15 | XMS_ITS | Encounter Summary ---
Author Organization [facility] Address [address] [place] [address] Care Team Providers Care Engineering Drawings Checker Name Role Phone Unavailable Primary Care Provider Unavailabl e Encounter Details Date Type Department Care Team (Late st Contact Info) Description 12/06/2002 Outpatient Historical [facility] Emerson, Lul Arana MD [address] [phone] UNILAT INGUINAL HERNIA (Primary Dx) Social History Tobacco Use Types Packs/Day Years Used Date Smoking Tobacco: Never Assessed Sex and Gender Information Value Date Recorded Sex Assigned at Not on file 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
--- OUTSIDE RECORDS SUMMARY | 2024-08-22 14:15 | XMS_ITS | Encounter Summary ---
Author Organization [facility] Address [address] [place] [address] Care Team Providers Care Lithoduplicator Operator Name Role Phone Unavailable Primary Care Provider Unavailabl e Encounter Details Date Type Department Care Team (Late st Contact Info) Description 01/24/2003 Outpatient Historical [facility] Emerson, Lul Arana MD [address] [phone] SURGERY FOLLOWUP, UNSPEC (Primary Dx) Social History Tobacco Use Types Packs/Day Years Used Date Smoking Tobacco: Never Assessed Sex and Gender Information Value Date Recorded Sex Assigned at Not on file 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
[2024-08-22 14:23] VITALS: BP 159/71; PULSE 62; RESP 18; TEMP 36.7; O2SAT 95; BMI 29.0
--- NOTE | 2024-08-22 15:25 | CTR_ITS ---
PROCEDURE INFORMATION: Exam: CT Head Without Contrast Exam date and time: 08/22/2024 3:46 PM Age: 83 years old Clinical indication: Stroke-like symptoms; Headache; Additional info: BLAKELY TECHNIQUE: Imaging protocol: Computed tomography of the head without contrast. Radiation optimization: All CT scans at this facility use at least one of these dose optimization techniques: automated exposure control; mA and/or kV adjustment per patient size (includes targeted exams where dose is matched to clinical indication); or iterative reconstruction. Other technique: STROKE PROTOCOL was implemented. COMPARISON: CT angio headneck* [id number] 06/08/2024 12:33 PM RADIATION DOSE METRICS: Total DLP (mGy-cm): 1109.9 FINDINGS: Tubes, catheters and devices: Bilateral cochlear implants. Brain: There are bilateral periventricular white matter and centrum semiovale hypodensities, consistent with chronic ischemic small vessel disease. Age related diffuse parenchymal volume loss. No recent infarct, intracranial bleed or mass effect. Cerebral ventricles: Ex vacuo dilatation of the ventricles. Paranasal sinuses: Visualized sinuses are unremarkable. No fluid levels. Mastoid air cells: Visualized mastoid air cells are well aerated. Orbital cavities: Post bilateral cataract surgery. Bones: Unremarkable. No acute fracture. Soft tissues: Unremarkable. CT/CT head wo con* [id number] IMPRESSION: No large territorial infarct or intracranial bleed. ASSESSMENT: ASPECTS ([place] Stroke Program Early CT Score) is 10.
--- NOTE | 2024-08-22 15:25 | CTR_ITS ---
PROCEDURE INFORMATION: Exam: CTA Head With Contrast, Arteriography Exam date and time: 08/22/2024 3:48 PM Age: 83 years old Clinical indication: Stroke-like symptoms; Headache; Additional info: BLAKELY TECHNIQUE: Imaging protocol: Computed tomographic angiography of the head with contrast. Exam focused on the arteries. 3D rendering (Not supervised by radiologist): MIP and/or 3D reconstructed images were created by the technologist. Radiation optimization: All CT scans at this facility use at least one of these dose optimization techniques: automated exposure control; mA and/or kV adjustment per patient size (includes targeted exams where dose is matched to clinical indication); or iterative reconstruction. Contrast material: OMNIPAQUE 350; Contrast volume: 100 ml; Contrast route: INTRAVENOUS (IV); COMPARISON: CT angio headneck* [id number] 06/08/2024 12:33 PM RADIATION DOSE METRICS: Total DLP (mGy-cm): 457.17 FINDINGS: ANTERIOR CIRCULATION: Right internal carotid artery: Calcified atheroma of the right cavernous ICA with no significant stenosis. Right middle cerebral artery: No occlusion or significant stenosis. No aneurysm. Right anterior cerebral artery: No occlusion or significant stenosis. No aneurysm. Left internal carotid artery: Calcified atheroma of the left cavernous ICA with no significant stenosis. Left middle cerebral artery: No occlusion or significant stenosis. No aneurysm. Left anterior cerebral artery: No occlusion or significant stenosis. No aneurysm. POSTERIOR CIRCULATION: Right vertebral artery: No occlusion or significant stenosis. No aneurysm. Left vertebral artery: No occlusion or significant stenosis. No aneurysm. Basilar artery: No occlusion or significant stenosis. No aneurysm. Right posterior cerebral artery: No occlusion or significant stenosis. No aneurysm. Left posterior cerebral artery: No occlusion or significant stenosis. No aneurysm. Brain: There are bilateral periventricular white matter and centrum semiovale hypodensities, consistent with chronic ischemic small vessel disease. No recent infarct, intracranial bleed or mass effect. Cerebral ventricles: No ventriculomegaly. Bones/joints: Unremarkable. No acute fracture. Soft tissues: Unremarkable. PROCEDURE INFORMATION: Exam: CTA Neck With Contrast Exam date and time: 08/22/2024 3:48 PM Age: 83 years old Clinical indication: Stroke-like symptoms; Headache; Additional info: BLAKELY TECHNIQUE: Imaging protocol: Computed tomographic angiography of the neck with contrast. Exam focused on the cervical segments of the vasculature. 3D rendering (Not supervised by radiologist): MIP and/or 3D reconstructed images were created by the technologist. Radiation optimization: All CT scans at this facility use at least one of these dose optimization techniques: automated exposure control; mA and/or kV adjustment per patient size (includes targeted exams where dose is matched to clinical indication); or iterative reconstruction. Contrast material: OMNIPAQUE 350; Contrast volume: 100 ml; Contrast route: INTRAVENOUS (IV); COMPARISON: CT angio headneck* [id number] 06/08/2024 12:33 PM RADIATION DOSE METRICS: Total DLP (mGy-cm): 457.17 FINDINGS: Right common carotid artery: No stenosis. No dissection or occlusion. Right internal carotid artery: Calcified atheroma of the right proximal ICA with mild stenosis. Right external carotid artery: No occlusion or stenosis of the origin. Left common carotid artery: No stenosis. No dissection or occlusion. Left internal carotid artery: Calcified atheroma of the left proximal ICA with mild stenosis. Left external carotid artery: No occlusion or stenosis of the origin. Right vertebral artery: Calcified atheromas at the origin of the right vertebral artery with moderate stenosis. Mild stenosis of the V4 segment of the right vertebral artery. Left vertebral artery: Calcified atheromas at the origin of the left vertebral artery with mild stenosis. Mild stenosis of the V4 segment of the left vertebral artery. Soft tissues: Normal. No significant soft tissue swelling. Bones/joints: The cervical spine demonstrates moderate degenerative changes at multiple levels. Mild retrolisthesis of C3 over C4. Lungs: Right upper lobe calcified granuloma. CT/CT angio headne* [id number] IMPRESSION: 1. No large vessel occlusion. 2. No large territorial infarct or intracranial bleed. 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 REFERENCES: NASCET CRITERIA. The degree of stenosis in the cervical segment of the internal carotid artery is based on NASCET criteria. Normal is no stenosis. Mild is less than 50% stenosis. Moderate is 50-69% stenosis. Severe is 70% to 99% stenosis. Total occlusion is no detectable patent lumen.
[2024-08-22 15:34] VITALS: RESP 16
[2024-08-22] MEDS: ondansetron 2 mg/ML SDV 2 mL 4 MG IVP (15:34)
[2024-08-22] MEDS: morphine 4 mg/mL SDV 1 mL IVP (15:34)
--- NOTE | 2024-08-22 15:36 | W.ED.HA ---
HPI - Headache General: Chief Complaint: Headache Stated Complaint: migraine Time Seen by Provider: 08/22/24 15:07 Source: patient Mode of arrival: ambulatory Limitations: no limitations History of Present Illness: 83-year-old male states he is had a headache over the last 2 days states headaches been sharp in nature rates it a 9 out of 10 states pain on the right side of his head. He denies any fevers denies any neck pain. States he had had back surgery a month ago has had some mild headaches since then. He denies any vision changes to me. Associated symptoms: Deny chest pain, fever(s), nausea, rash or vomiting Related Data Home Medications ?Medication ?Instructions ?Recorded ?Confirmed citalopram 20 mg tablet (Celexa) 20 mg PO DAILY 09/07/19 07/15/24 simvastatin 20 mg tablet 20 mg PO BEDTIME 01/19/20 07/15/24 aspirin 81 mg tablet,delayed 81 mg PO DAILY 08/14/20 07/15/24 release vit C 250 mg-vit E 90 mg-zinc 40 1 tab PO BID 08/14/20 07/15/24 mg-copper 1 ox-hgnyun-vgbunp capsule (PreserVision AREDS-2) levothyroxine 50 mcg tablet 50 mcg PO QAM 04/22/23 07/15/24 docusate sodium 100 mg capsule 100 mg PO BID 07/15/24 07/15/24 methocarbamol 500 mg tablet 500 mg PO QID PRN Muscle Spasm 07/15/24 07/15/24 oxycodone 5 mg tablet 5 mg PO Q6H PRN Pain 07/15/24 07/15/24 Previous Rx's ?Medication ?Instructions ?Recorded omeprazole 20 mg capsule,delayed 20 mg PO BID #0 caps 08/14/20 release lisinopril 20 mg tablet 20 mg PO DAILY #30 tabs 07/18/24 metoprolol tartrate 50 mg tablet 50 mg PO BID #60 tabs 07/18/24 sodium chloride 1,000 mg soluble 1,000 mg PO TID #14 tabs 07/18/24 tablet Allergies Allergy/AdvReac Type Severity Reaction Status Date / Time amlodipine AdvReac Severe ADR-Fatigue Verified 08/22/24 14:28 d Review of Systems Const: Denies: fever(s), chills, body aches or change in appetite ENMT: Denies: throat pain or dental pain Card: Denies: chest pain Resp: Denies: dyspnea GI: Denies: abdominal pain, nausea, vomiting or diarrhea Musc: Denies: neck pain or back pain Skin/Breast: Denies: rash Neuro: Reports: headache(s) PFSH ED PFSH: Medical History Lumbar canal stenosis 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 Patient tells me he wants full code as we discussed today on 07/14/2024 with Alex Perkins MD. The patient still chews school 1 can every 4 days previously was 1 candidate. He quit smoking tobacco 40 years ago. 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 Adopted: No Household members: spouse Housing: House Marital status: Number of children: 3 Highest education level completed: High School Graduate Current occupational status: retired Pets and animals: Yes Current gender identity: Male Physical Exam Const: COMMON NORMALS: no acute distress, patient oriented x3 and healthy appearing HENMT: COMMON NORMALS: normocephalic and atraumatic HEAD & SCALP: normocephalic and atraumatic OTHER: No tenderness along temporal artery Eye: COMMON NORMALS: Equal, round and reactive pupils present, EOMs intact bilaterally and conjunctivae normal CONJUNCTIVA: Yes conjunctivae normal PUPIL: Yes Equal, round and reactive pupils present Neck/C-Spine: COMMON NORMALS: full ROM and supple Chest: COMMONS NORMALS: normal inspection of the chest Resp: COMMON NORMALS: normal respiratory effort Cardio: COMMON NORMALS: regular rate, regular rhythm and No murmurs present (Cardio) RATE: regular rate RHYTHM: regular rhythm GI: COMMON NORMALS: non-tender Extremity: COMMON NORMALS: normal to inspection and full ROM Neuro: COMMON NORMALS: patient oriented x3, moves all extremities and no focal motor deficits Psych: COMMON NORMALS: mental status grossly normal, Normal thought process present and cooperative THOUGHT PROCESS: Normal thought process present Skin: COMMON NORMALS: no rashes or lesions noted and no wounds GENERAL SKIN EXAM: no rashes or lesions noted Course Vital Signs: Vital signs: Vital Signs Temperature 98.1 F 08/22/24 14:23 Pulse Rate 62 08/22/24 14:23 Respiratory Rate 16 08/22/24 15:34 Blood Pressure 159/71 08/22/24 14:23 Pulse Oximetry 95 08/22/24 14:23 Oxygen Delivery Me thod Room Air 08/22/24 14:23 MDM - Headache Medical Decision Making Patient presents here with headache his headache is much improved here head CT here is normal blood was normal he has no signs of meningitis no sign of hemorrhage. He stable for discharge she is to follow-up with his PCP return if worsening he understands agrees to plan. Medical Records I reviewed the patient's medical records. Lab Data I reviewed the patient's lab results. 08/22/24 15:32 08/22/24 15:[address] 08/22/24 15:25 IMPRESSION: No large territorial infarct or intracranial bleed. ASSESSMENT: ASPECTS ([place] Stroke Program Early CT Score) is 10. ADDENDUM: 08/22/24 1607 THIS REPORT CONTAINS FINDINGS THAT MAY BE CRITICAL TO PATIENT CARE. The findings were verbally communicated via telephone conference with JILLIAN BLANCO at 4:05 PM CDT on 08/22/2024. The findings were acknowledged and understood. Head/Neck CTA 08/22/24 15:25 IMPRESSION: 1. No large vessel occlusion. 2. No large territorial infarct or intracranial bleed. 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 REFERENCES: NASCET CRITERIA. The degree of stenosis in the cervical segment of the internal carotid artery is based on NASCET criteria. Normal is no stenosis. Mild is less than 50% stenosis. Moderate is 50-69% stenosis. Severe is 70% to 99% stenosis. Total occlusion is no detectable patent lumen. ADDENDUM: 08/22/24 [id number] THIS REPORT CONTAINS FINDINGS THAT MAY BE CRITICAL TO PATIENT CARE. The findings were verbally communicated via telephone conference with JILLIAN BLANCO at 4:23 PM CDT on 08/22/2024. The findings were acknowledged and understood. Laboratory Results WBC 7.97 10^3/uL (3.29-11.43) 08/22/24 15:32 RBC 4.41 10^6/uL (3.85-5.65) 08/22/24 15:32 Hgb 13.00 g/dL (11.27-16.99) 08/22/24 15:32 Hct 38.7 % (37-53) 08/22/24 15:32 MCV 87.8 fl (82-101) 08/22/24 15:32 MCH 29.5 pg (27-33) 08/22/24 15:32 MCHC 33.6 g/dL (30-55) 08/22/24 15:32 RDW 13.4 % (12.1-15.1) 08/22/24 15:32 Plt Count 227 10^3/cmm (157-399) 08/22/24 15:32 MPV 9.4 fL (7.4-10.4) 08/22/24 15:32 Neut % (Auto) 58.6 % 08/22/24 15:32 Lymph % (Auto) 19.6 % 08/22/24 15:32 Camp % (Auto) 14.9 % 08/22/24 15:32 Eos % (Auto) 5.9 % 08/22/24 15:32 Baso % (Auto) 0.6 % 08/22/24 15:32 Neut # (Auto) 4.67 10^3/uL (1.8-7.7) 08/22/24 15:32 Lymph # (Auto) 1.6 10^3/uL (0.8-4.8) 08/22/24 15:32 Camp # (Auto) 1.2 10^3/uL (0.2-0.9) H 08/22/24 15:32 Eos # (Auto) 0.5 10^3/uL (0.0-0.8) 08/22/24 15:32 Baso # (Auto) 0.1 10^3/uL (0.0-0.1) 08/22/24 15:32 Nucleated RBC % (auto) 0 % 08/22/24 15:32 Nucleated RBCs # 0.0 /100WBC 08/22/24 15:32 Sodium 133 mmol/L (136-145) L 08/22/24 15:32 Potassium 4.4 mmol/L (3.5-5.1) 08/22/24 15:32 Chloride 96 mmol/L (98-107) L 08/22/24 15:32 Carbon Dioxide 26 mmol/L (22-29) 08/22/24 15:32 Anion Gap 15.4 (5-19) 08/22/24 15:32 BUN 18 mg/dL (8-23) 08/22/24 15:32 Creatinine 0.9 mg/dL (0.7-1.2) 08/22/24 15:32 GFR Calculation Not Reportable 08/22/24 15:32 Glucose 94 mg/dL (65-115) 08/22/24 15:32 Calculated Osmolality 278 mOsm/kg (285-295) L 08/22/24 15:32 Calcium 9.1 mg/dL (8.5-10.5) 08/22/24 15:32 All radiology interpretation(s) finalized by discharge Discharge Plan Discharge Patient Disposition: Home Clinical Impression: Headache Condition: Stable Prescriptions: No Action citalopram [Celexa] 20 mg tablet 20 mg PO DAILY simvastatin 20 mg Tablet 20 mg PO BEDTIME aspirin 81 mg Tablet,Delayed Release (Dr/Ec) 81 mg PO DAILY PreserVision AREDS-2 250-90-40-1 mg Capsule 1 tab PO BID omeprazole 20 mg capsule,delayed release(DR/EC) 20 mg PO BID Qty: 0 0RF levothyroxine 50 mcg tablet 50 mcg PO QAM methocarbamol 500 mg tablet 500 mg PO QID PRN (Reason: Muscle Spasm) docusate sodium 100 mg capsule 100 mg PO BID oxycodone 5 mg tablet 5 mg PO Q6H PRN (Reason: Pain) sodium chloride 1,000 mg Tablet,Soluble 1,000 mg PO TID Qty: 14 0RF lisinopril 20 mg tablet 20 mg PO DAILY Qty: 30 0RF metoprolol tartrate 50 mg tablet 50 mg PO BID Qty: 60 0RF Discharge Orders: Discharge ED (Routine); Ordered 08/22/24 Ordered By: Jillian Blanco Referrals: Adi Walters MD [Primary Care Provider, Family Practice] - 4-7 days Discharge Diet: Advance as tolerated Discharge Activity: Resume usual activity Patient Instructions: Headache Print Language: Amharic Coding Level of Care Code ED Photographer Model for Larissa Zavala
[2024-08-22 15:47] LABS: Hematocrit 38.7 % (37-53); Hemoglobin 13.00 g/dL (11.27-16.99); Mean Corpuscular HGB Conc 33.6 g/dL (30-55); Mean Corpuscular Hemoglobin 29.5 pg (27-33); Mean Corpuscular Volume 87.8 fl (82-101); Nucleated Red Blood Cells % 0 %; Platelet Count 227 10^3/cmm (157-399); Red Blood Count 4.41 10^6/uL (3.85-5.65); White Blood Count 7.97 10^3/uL (3.29-11.43)
[2024-08-22] MEDS: iohexol 350 mg/mL 500 mL Btl (per mL) IV (15:55)
[2024-08-22 16:03] LABS: Anion Gap 15.4 (5-19); Blood Urea Nitrogen 18 mg/dL (8-23); Calcium 9.1 mg/dL (8.5-10.5); Carbon Dioxide 26 mmol/L (22-29); Chloride 96 mmol/L (98-107); Creatinine Clr Calc Pharmacy 66.6718; Glucose 94 mg/dL (65-115); Osmolality Calculated 278 mOsm/kg (285-295); Potassium 4.4 mmol/L (3.5-5.1); Sodium 133 mmol/L (136-145)
[2024-08-22 16:46] VITALS: BP 166/78; PULSE 61; O2SAT 96
[2024-08-22] MEDS: HYDROcodone-acetaminophen 5-325 mg Tablet 1 TAB PO (16:47)
== END 2024-08-22 16:47 | disposition home or self-care (01) ==
PROVIDERS: Emergency Provider Emergency Medicine; PCP Family Medicine
DX: R51.9 Headache, unspecified (principal); Z79.82 Long term (current) use of aspirin; Z87.891 Personal history of nicotine dependence; I10 Essential (primary) hypertension
CPT/HCPCS: 36415; 70450; 70496; 70498; 80048; 85025; 96374; 96375; 99285; J1885; J2270; J2405; J9999

== ENCOUNTER → 2024-09-13 11:03 | Outpatient (BNVA) | payer MEDICARE, OTHER, SELFPAY | PROVIDERS: PCP Family Medicine; Visit Provider Nurse Practitioner Family | DX: L81.4 Other melanin hyperpigmentation (principal); L82.1 Other seborrheic keratosis; D18.01 Hemangioma of skin and subcutaneous tissue; L57.8 Other skin changes due to chronic exposure to nonionizing radiation; X32.XXXA Exposure to sunlight, initial encounter; L57.0 Actinic keratosis | CPT/HCPCS: 17004; 99213 ==

== ENCOUNTER → 2025-01-12 11:14 | Outpatient (BNVA) | payer MEDICARE, OTHER, SELFPAY | PROVIDERS: PCP Family Medicine; Visit Provider Nurse Practitioner Family | DX: R07.9 Chest pain, unspecified (principal); E78.00 Pure hypercholesterolemia, unspecified; I10 Essential (primary) hypertension; E87.1 Hypo-osmolality and hyponatremia; I35.0 Nonrheumatic aortic (valve) stenosis; R60.9 Edema, unspecified; Z87.891 Personal history of nicotine dependence | CPT/HCPCS: 99213 ==